=== PATIENT | female | born 1985 | race African-American/Black ===

== ENCOUNTER 2019-10-26 23:22 | Emergency (ER) | payer OTHER ==
[2019-10-26 23:28] VITALS: RESP 20
[2019-10-26] MEDS ORDERED: FLUORESCEIN STRIPS 1 MG STRIP LEFT EYE ONE (23:33)
[2019-10-26] MEDS ORDERED: PROPARACAINE 0.5% OPHTH DROPS 15 ML BTL LEFT EYE STA (23:33)
[2019-10-26 23:43] LABS: Basophils % (A) 0 %; Eosinophils # (A) 0.1 k/uL (0-0.7); Eosinophils % (A) 1 %; HCT 43.9 % (34.0-46.0); HGB 13.8 gm/dL (11.4-16.0); Hypochromasia Slight; Lymphocytes # (A) 2.3 k/uL (1.0-4.8); Lymphocytes % (A) 20 %; MCH 27.1 pg (25.0-35.0); MCHC 31.4 g/dL (31.0-37.0); MCV 86.4 fL (80.0-100.0); Monocytes # (A) 0.3 k/uL (0-1.0); Monocytes % (A) 3 %; Neutrophils # (A) 8.5 k/uL (1.3-7.7); Neutrophils % (A) 74 %; Platelet Count 326 k/uL (150-450); RBC 5.08 m/uL (3.80-5.40); RDW 15.6 % (11.5-15.5); WBC 11.5 k/uL (3.8-10.6)
[2019-10-26 23:52] LABS: INR 0.9 (<1.2); Prothrombin Time 9.8 sec (9.0-12.0)
[2019-10-26 23:53] LABS: Partial Thromboplastin Time 24.2 sec (22.0-30.0)
[2019-10-26 23:54] LABS: ALT 21 U/L (4-34); AST 32 U/L (14-36); African American GFR (CKD) >90 (>60 ml/min/1.73 sqM); Albumin 4.6 g/dL (3.5-5.0); Alkaline Phosphatase 106 U/L (38-126); Anion Gap 12 mmol/L; Blood Urea Nitrogen 6 mg/dL (7-17); Calcium 8.9 mg/dL (8.4-10.2); Carbon Dioxide 19 mmol/L (22-30); Chloride 110 mmol/L (98-107); Glucose 105 mg/dL (74-99); Non-African American GFR(CKD) >90 (>60 ml/min/1.73 sqM); Potassium 3.8 mmol/L (3.5-5.1); Sodium 141 mmol/L (137-145); Total Bilirubin 0.4 mg/dL (0.2-1.3); Total Protein 8.2 g/dL (6.3-8.2)
[2019-10-26 23:57] LABS: Alcohol 267 mg/dL
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
[2019-10-27] MEDS ORDERED: TOPICAL SKIN ADHESIVE 1 EACH AMP TOPICAL ONE (00:23)
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
[2019-10-27] MEDS ORDERED: DIPH,PERTUS(ACELL)TETVAC-LF 0.5 ML VIAL IM ONE (00:31)
[2019-10-27 01:03] VITALS: BP 121/79; PULSE 90; TEMP 98.1
[2019-10-27] MEDS ORDERED: ACETAMINOPHEN TAB 500 MG TAB PO STA (01:03)
== END 2019-10-27 01:18 | disposition home or self-care (01) ==
LOC: EC 23:22
DX: S01.81XA Laceration without foreign body of other part of head, initial encounter (principal); F10.129 Alcohol abuse with intoxication, unspecified; Y90.9 Presence of alcohol in blood, level not specified; Z88.1 Allergy status to other antibiotic agents; Y04.2XXA Assault by strike against or bumped into by another person, initial encounter; Y92.89 Other specified places as the place of occurrence of the external cause
CPT/HCPCS: 12011; 36415; 70450; 70486; 72125; 80053; 80320; 85025; 85610; 85730; 86850; 86900; 86901; 93005; 99284

== ENCOUNTER 2019-12-14 11:00 | Emergency (ER) | payer OTHER ==
[2019-12-14 11:07] VITALS: BP 126/85; PULSE 90; RESP 18; TEMP 97.5
--- NOTE | 2019-12-14 11:26 | ED ---
General Adult HPI - General Chief complaint: Skin/Abscess/Foreign Body Stated complaint: boil on leg Time Seen by Provider: 12/14/19 11:11 Source: patient, RN notes reviewed, old records reviewed Mode of arrival: ambulatory Limitations: no limitations - History of Present Illness Initial comments: 34-year-old female presents emergency department today for evaluation for abscess over the right inner thigh. She has a history of hydradenitis Miguel. Patient states she's had previous abscesses such as this. She states is been progressively growing for the past few days. She reports that it opened and drained. Patient has had no fevers or chills. Patient has not been on recent antibiotics. She states that she believed work early for this. - Related Data Previous Rx's Medication Instructions Recorded Ibuprofen [Motrin] 600 mg PO Q8HR PRN #20 tab 12/14/19 Sulfamethox-Tmp 800-160Mg [Bactrim 2 tab PO Q12HR #40 tab 12/14/19 DS 800-160 mg] Allergies Allergy/AdvReac Type Severity Reaction Status Date / Time doxycycline Allergy Nausea & Verified 12/14/19 11:07 Vomiting Review of Systems ROS Statement: Those systems with pertinent positive or pertinent negative responses have been documented in the HPI. ROS Other: All systems not noted in ROS Statement are negative. Past Medical History Past Medical History: Unable to Obtain Additional Past Medical History / Comment(s): HS (gland issues) History of Any Multi-Drug Resistant Organisms: Unobtainable Past Surgical History: Unable to Obtain Past Psychological History: No Psychological Hx Reported Smoking Status: Current every day smoker Past Alcohol Use History: None Reported Past Drug Use History: None Reported General Exam - General Exam Comments Initial Comments: 34-year-old female. Alert and oriented 3. No significant distress. Limitations: no limitations General appearance: alert, in no apparent distress Head exam: Present: atraumatic, normocephalic, normal inspection Eye exam: Present: normal appearance, PERRL, EOMI. Absent: scleral icterus, conjunctival injection, periorbital swelling ENT exam: Present: normal exam Neck exam: Present: normal inspection. Absent: tenderness, meningismus, lymphadenopathy Respiratory exam: Present: normal lung sounds bilaterally. Absent: respiratory distress, wheezes, rales, rhonchi, stridor Cardiovascular Exam: Present: regular rate, normal rhythm, normal heart sounds. Absent: systolic murmur, diastolic murmur, rubs, gallop, clicks GI/Abdominal exam: Present: soft, normal bowel sounds. Absent: distended, tenderness, guarding, rebound, rigid Extremities exam: Present: normal inspection (Patient has a boil on the right inner thigh. Area measures 2 cm 1 cm. Some surrounding premises skin. No head to drain at this time.), full ROM, normal capillary refill, other (right inner thigh boil that is open. Some firmness to touch. Area measures to m x 1 cm.). Absent: tenderness, pedal edema, joint swelling, calf tenderness Neurological exam: Present: alert, oriented X3, CN II-XII intact Psychiatric exam: Present: normal affect, normal mood Skin exam: Present: warm, dry, intact, normal color. Absent: rash Course Vital Signs 12/14/19 11:02 Temperature 97.5 F L Pulse Rate 90 Respiratory 18 Rate Blood Pressure 126/85 O2 Sat by Pulse 100 Oximetry Medical Decision Making - Medical Decision Making 34-year-old female presents with history of hidradenitis appear to an abscess in her right inner thigh. Patient has a 2 cm x 1 cm firm area. I offered to drain is a Patient states she would prefer antibiotics and avoid incision and drainage at this time. I discussed doing warm compresses. Discussed return parameters. All questions answered. Disposition Clinical Impression: H/O hidradenitis suppurativa, Abscess of right thigh Disposition: HOME SELF-CARE Condition: Good Instructions (If sedation given, give patient instructions): Abscess (ED) Additional Instructions: Patient has apply warm compresses over the area. Take the antibiotics as prescribed. We had forearms in and drainage would be required please return to the ER or PCP for reevaluation. Prescriptions: Sulfamethox-Tmp 800-160Mg [Bactrim DS 800-160 mg] 2 tab PO Q12HR #40 tab Ibuprofen [Motrin] 600 mg PO Q8HR PRN #20 tab PRN Reason: Pain Is patient prescribed a controlled substance at d/c from ED?: No Referrals: None,Stated [Primary Care Provider] - 1-2 days Time of Disposition: 11:25
== END 2019-12-14 11:38 | disposition home or self-care (01) ==
LOC: EC 11:00
DX: L02.415 Cutaneous abscess of right lower limb (principal); F17.200 Nicotine dependence, unspecified, uncomplicated; Z88.1 Allergy status to other antibiotic agents; Z87.2 Personal history of diseases of the skin and subcutaneous tissue
CPT/HCPCS: 99283

== ENCOUNTER 2020-01-12 22:16 | Emergency (ER) | payer OTHER ==
[2020-01-12 22:21] VITALS: BP 119/83; PULSE 84; RESP 18; TEMP 98.2
--- NOTE | 2020-01-12 22:25 | ED ---
Skin/Abscess/FB HPI - General Chief complaint: Skin/Abscess/Foreign Body Stated complaint: Boil Time Seen by Provider: 01/12/20 22:24 Source: patient Mode of arrival: wheelchair Limitations: no limitations - History of Present Illness Initial comments: Annette 34-year-old female with a history of hidradenitis, patient presents the ER today for evaluation of an abscess of the abdominal pannus. Patient reports she finished antibiotics for infection approximately a week ago but she's noticed progressively worsening pain and believe she has an abscess in the left lower abdominal pannus. She denies any associated fevers chills nausea or vomiting. - Related Data Previous Rx's Medication Instructions Recorded Ibuprofen [Motrin] 600 mg PO Q8HR PRN #20 tab 12/14/19 Sulfamethox-Tmp 800-160Mg [Bactrim 2 tab PO Q12HR #40 tab 12/14/19 DS 800-160 mg] Sulfamethox-Tmp 800-160Mg [Bactrim 1 tab PO Q12HR #14 tab 01/12/20 DS 800-160 mg] Allergies Allergy/AdvReac Type Severity Reaction Status Date / Time doxycycline Allergy Nausea & Verified 01/12/20 22:21 Vomiting Review of Systems ROS Statement: Those systems with pertinent positive or pertinent negative responses have been documented in the HPI. ROS Other: All systems not noted in ROS Statement are negative. Past Medical History Past Medical History: Unable to Obtain Additional Past Medical History / Comment(s): HS (gland issues), History of Any Multi-Drug Resistant Organisms: Unobtainable Past Surgical History: Unable to Obtain Additional Past Surgical History / Comment(s): sweat glands removed, Past Psychological History: No Psychological Hx Reported Smoking Status: Current every day smoker Past Alcohol Use History: None Reported Past Drug Use History: Marijuana General Exam - General Exam Comments Initial Comments: Physical Exam GENERAL: Patient is well-developed and well-nourished. Patient is nontoxic and well-hydrated and is in no distress. HENT: Normocephalic, Atraumatic. EYES: PERRL, EOMI PULMONARY: Unlabored respirations. CARDIOVASCULAR: RRR Warm and well perfused extremities ABDOMEN: Non-distended SKIN: Patient with scars on lower abdomen consistent with hydradenitis Palpable abscess on left lower panus, approx 2x2cm, minimal surrounding erythema : Deferred NEUROLOGIC: Alert and oriented Normal speech Normal gait MUSCULOSKELETAL: Moving all extremities with no apparent injury PSYCHIATRIC: No SI/HI Limitations: no limitations Course Vital Signs 01/12/20 22:18 Temperature 98.2 F Pulse Rate 84 Respiratory 18 Rate Blood Pressure 119/83 O2 Sat by Pulse 100 Oximetry Medical Decision Making - Medical Decision Making Patient was seen and evaluated, history obtained from patient Patient with abscess which was drained by Ta OBNILLA First dose of Bactrim given in ER, prescription was provided patient was advised that [facility] in [place] has a hidradenitis clinic that she can follow with. Patient was advised to contact them for further follow-up. Disposition Clinical Impression: H/O hidradenitis suppurativa, Abscess of abdominal wall Disposition: HOME SELF-CARE Condition: Stable Instructions (If sedation given, give patient instructions): Abscess Incision and Drainage (DC) Additional Instructions: Check the [facility] website for follow up with Dermatology as they have a Hydradenitis Clinic Prescriptions: Sulfamethox-Tmp 800-160Mg [Bactrim DS 800-160 mg] 1 tab PO Q12HR #14 tab Is patient prescribed a controlled substance at d/c from ED?: No Referrals: None,Stated [Primary Care Provider] - 1-2 days
[2020-01-12] MEDS ORDERED: LIDOCAINE 1%-EPI 1:100,000 20 ML VIAL SQ STA (22:35)
[2020-01-12] MEDS ORDERED: MORPHINE SULFATE 4 MG/ML SYRINGE IM STA (22:36)
[2020-01-12] MEDS ORDERED: SULFAMETH-TMP DS STARTER PACK 2 TAB BTL PO STA (22:36)
--- NOTE | 2020-01-14 07:34 | CDI ---
Dear Gabi Jones DO Please do addendum for procedure note related to lidocaine/epinephrine , required Thank you, Kalina Naranjo, Transportation Services Representative If you have any questions, please contact [employer] at [phone] [facility]
== END 2020-01-12 23:11 | disposition home or self-care (01) ==
LOC: EC 22:16
DX: L02.211 Cutaneous abscess of abdominal wall (principal); F17.200 Nicotine dependence, unspecified, uncomplicated; Z88.1 Allergy status to other antibiotic agents
CPT/HCPCS: 99282; 96372; J2270

== ENCOUNTER 2020-03-08 16:56 | Emergency (ER) | payer OTHER ==
[2020-03-08 17:02] VITALS: BP 126/84; PULSE 99; RESP 16; TEMP 98.5
[2020-03-08] MEDS ORDERED: LIDOCAINE 1% INJ 10MG/ML (20 ML MDV) SQ ONE (17:20)
[2020-03-08] MEDS ORDERED: HYDROcodone/APAP 10-325MG 1 EACH TAB PO ONE (17:20)
[2020-03-08] MEDS ORDERED: CLINDAMYCIN 150 MG CAP PO STA (17:25)
--- NOTE | 2020-03-08 18:40 | ED ---
General Adult HPI - General Chief complaint: Skin/Abscess/Foreign Body Stated complaint: cyst on back Time Seen by Provider: 03/08/20 17:04 Source: patient Mode of arrival: ambulatory Limitations: no limitations - History of Present Illness Initial comments: Patient is a 34 year old female past medical history of hidradenitis supprativa who presents to the emergency room with reported abscess to her back. Patient states that she was recently seen by her primary care physician and was on a course of clindamycin and Bactrim. She just finished antibiotic 2 days ago. States that the 2 large abscesses on her back have gotten progressively larger since monday. This is a chronic issue for the patient. She has had multiple surgeries previously for similar issue. Patient denies fevers or chills. No nausea or vomiting. She has had some pustular drainage from the site. No history of MRSA. No other alleviating, precipitating or modifying factors - Related Data Previous Rx's Medication Instructions Recorded Ibuprofen [Motrin] 600 mg PO Q8HR PRN #20 tab 12/14/19 Sulfamethox-Tmp 800-160Mg [Bactrim 2 tab PO Q12HR #40 tab 12/14/19 DS 800-160 mg] Sulfamethox-Tmp 800-160Mg [Bactrim 1 tab PO Q12HR #14 tab 01/12/20 DS 800-160 mg] Chlorhexidine Gluconate [Hibiclens] 1 applic TOPICAL DAILY #236 ml 03/08/20 Clindamycin HCl 300 mg PO Q8HR #21 cap 03/08/20 HYDROcodone/APAP 7.5-325MG [Richmond 1 tab PO Q6HR PRN 3 Days #12 tab 03/08/20 7.5-325] Sulfamethox-Tmp 800-160Mg [Bactrim 1 each PO Q12HR #20 tab 03/08/20 Ds] Allergies Allergy/AdvReac Type Severity Reaction Status Date / Time doxycycline Allergy Nausea & Verified 03/08/20 17:02 Vomiting Review of Systems ROS Statement: Those systems with pertinent positive or pertinent negative responses have been documented in the HPI. ROS Other: All systems not noted in ROS Statement are negative. Past Medical History Past Medical History: Unable to Obtain Additional Past Medical History / Comment(s): HS (gland issues), History of Any Multi-Drug Resistant Organisms: Unobtainable Past Surgical History: Unable to Obtain Additional Past Surgical History / Comment(s): sweat glands removed, Past Psychological History: No Psychological Hx Reported Smoking Status: Current every day smoker Past Alcohol Use History: Occasional Past Drug Use History: Marijuana General Exam Limitations: no limitations Course Vital Signs 03/08/20 16:57 Temperature 98.5 F Pulse Rate 99 Respiratory 16 Rate Blood Pressure 126/84 O2 Sat by Pulse 99 Oximetry Medical Decision Making - Medical Decision Making Upon arrival patient is placed in room 27. A thorough history and physical exam was performed. Patient was given a Richmond 10 for pain control as well as a dose of clindamycin. Incision and drainage was performed of the 2 large back abscesses. Patient tolerated the procedure well. The larger abscess to the right thoracic region was packed with iodoform gauze which is to be removed in 24-48 hours. Patient will be given a prescription for Bactrim, clindamycin and Richmond. Patient also provided a prescription for Hibiclens baths for which she is to use a few times per week. She is given follow-up information for multiple surgeons as she states she has seen several in [place] [facility]. Patient is instructed to follow-up with her primary care doctor in 2-4 days. Return to the emergency room for any new or worsening symptoms. Patient was discharged home in stable condition Disposition Clinical Impression: Hidradenitis suppurativa, Abscess of back Disposition: HOME SELF-CARE Condition: Stable Instructions (If sedation given, give patient instructions): Abscess Incision and Drainage (ED), Abscess (ED) Additional Instructions: Please follow up with the surgeon. Take the antibiotics as directed. Remove the packing in 24-48 hours. Return to the ED for any new or worsening symptoms. Prescriptions: Sulfamethox-Tmp 800-160Mg [Bactrim Ds] 1 each PO Q12HR #20 tab Clindamycin HCl 300 mg PO Q8HR #21 cap Chlorhexidine Gluconate [Hibiclens] 1 applic TOPICAL DAILY #236 ml HYDROcodone/APAP 7.5-325MG [Richmond 7.5-325] 1 tab PO Q6HR PRN 3 Days #12 tab PRN Reason: Pain Is patient prescribed a controlled substance at d/c from ED?: Yes When asked, does pt state using other controlled substances?: No If prescribed controlled substance>3 days was MAPS reviewed?: Prescribed <3 Days If opioid is for acute pain is fill amount 7 days or less?: Yes If Rx opioid, was Start Talking consent form obtained?: Yes Referrals: Fish Grimes DO [Primary Care Provider] - 1-2 days Jesse Hamilton DO [REFERRING] - 1-2 days Twin Blakely DO [REFERRING] - 1-2 days Time of Disposition: 18:38
== END 2020-03-08 18:50 | disposition home or self-care (01) ==
LOC: EC 16:56
DX: L73.2 Hidradenitis suppurativa (principal); L02.212 Cutaneous abscess of back [any part, except buttock and flank]; F17.200 Nicotine dependence, unspecified, uncomplicated; Z88.1 Allergy status to other antibiotic agents
CPT/HCPCS: 87070; 87205; 99283; 10060; J2001

== ENCOUNTER 2020-03-18 09:32 | Emergency (ER) | payer OTHER ==
[2020-03-18 09:39] VITALS: BP 143/83; PULSE 75; RESP 18; TEMP 98.6
[2020-03-18] MEDS ORDERED: LIDOCAINE 1% INJ 10MG/ML (20 ML MDV) SQ ONE (09:46)
[2020-03-18] MEDS ORDERED: HYDROcodone/APAP 5-325MG 1 EACH TAB PO STA (09:46)
--- NOTE | 2020-03-18 10:06 | ED ---
General Adult HPI - General Chief complaint: Skin/Abscess/Foreign Body Stated complaint: Cyst on neck Time Seen by Provider: 03/18/20 09:43 Source: patient, RN notes reviewed Mode of arrival: ambulatory Limitations: no limitations - History of Present Illness Initial comments: 34-year-old female presents to the emergency room for a chief complaint of ab scess. Patient has a history of hidradenitis of vertebral. Patient states she has an abscess on her neck as well as her abdomen. Patient is currently on antibiotics that she did have an abscess on her back previously about a week and a half ago that was drained here in the emergency room. He continually gets these. States that she takes a daily antibiotic as well of however does not seem to be prevent them. Patient denies any fevers or chills. Denies any neck stiffness.Patient has no other complaints at this time including shortness of breath, chest pain, abdominal pain, nausea or vomiting, headache, or visual changes. - Related Data Previous Rx's Medication Instructions Recorded Ibuprofen [Motrin] 600 mg PO Q8HR PRN #20 tab 12/14/19 Sulfamethox-Tmp 800-160Mg [Bactrim 2 tab PO Q12HR #40 tab 12/14/19 DS 800-160 mg] Sulfamethox-Tmp 800-160Mg [Bactrim 1 tab PO Q12HR #14 tab 01/12/20 DS 800-160 mg] Chlorhexidine Gluconate [Hibiclens] 1 applic TOPICAL DAILY #236 ml 03/08/20 Clindamycin HCl 300 mg PO Q8HR #21 cap 03/08/20 HYDROcodone/APAP 7.5-325MG [[place] 1 tab PO Q6HR PRN 3 Days #12 tab 03/08/20 7.5-325] Sulfamethox-Tmp 800-160Mg [Bactrim 1 each PO Q12HR #20 tab 03/08/20 Ds] Clindamycin [Cleocin] 300 mg PO Q8H 5 Days #15 cap 03/18/20 Allergies Allergy/AdvReac Type Severity Reaction Status Date / Time doxycycline Allergy Nausea & Verified 03/18/20 09:39 Vomiting Review of Systems ROS Statement: Those systems with pertinent positive or pertinent negative responses have been documented in the HPI. ROS Other: All systems not noted in ROS Statement are negative. Past Medical History Past Medical History: Unable to Obtain Additional Past Medical History / Comment(s): HS (gland issues), History of Any Multi-Drug Resistant Organisms: Unobtainable Past Surgical History: Unable to Obtain Additional Past Surgical History / Comment(s): sweat glands removed, Past Psychological History: No Psychological Hx Reported Smoking Status: Current every day smoker Past Alcohol Use History: Occasional Past Drug Use History: Marijuana General Exam Limitations: no limitations General appearance: alert Head exam: Present: atraumatic Eye exam: Present: normal appearance ENT exam: Present: normal exam, mucous membranes moist Neck exam: Present: full ROM, other (Patient has a 2 cm x 2 cm nodule on the posterior neck noted right of midline consistent with abscess) Respiratory exam: Present: normal lung sounds bilaterally. Absent: respiratory distress, wheezes, rales, rhonchi, stridor Cardiovascular Exam: Present: regular rate, normal rhythm, normal heart sounds. Absent: systolic murmur, diastolic murmur, rubs, gallop, clicks GI/Abdominal exam: Present: soft, normal bowel sounds, other (Patient has a small 2 cm x 2 cm abscess noted to the left lower abdomen). Absent: distended, guarding, rebound, rigid Course Vital Signs 03/18/20 09:37 Temperature 98.6 F Pulse Rate 75 Respiratory 18 Rate Blood Pressure 143/83 O2 Sat by Pulse 100 Oximetry Procedures - [place] Protocol (Time Out) Procedure Performed:: i and d Performing Provider: Umberto Witt Nurse: Kandis Moss Patient Identification (2 identifiers required): Chart, Verbal, Arm Band, Name, Birthdate Patient/Legal Vp Marketing has Confirmed: Identity, Site, Procedure, Consent Site: left lower abdomen and posterior neck Site Marked: Yes Site Verified With Patient/Guardian: Yes - Incision & Drainage Consent Obtained: verbal consent Indication: Abscess Site: neck, abdomen Size (cm): 2 Anesthetic Used: lidocaine 1% Amount (mLs): 1 I&D Cleaning Method: Chloroprep Sterile Field Used?: Yes Scalpel Used: #11 I&D Drainage Obtained: Pus, Blood Patient Tolerated Procedure: well, no complications Medical Decision Making - Medical Decision Making Vitals are stable. Patient has a 2 cm abscess noted to the posterior neck right of midline near the skull base. I did clean this area and attempt to incise and drain however no purulent material expelled. no erythema or signs of cellulitis. she will follow up with her doctor for this. i also drained a 2 cm abscess on the abdomen which did reveal purulent material. Patient was arty been on Bactrim for about 10 days. She finished her 7 day course of clindamycin. Patient will be put on clindamycin for another 5 days. It is recommended she do warm compresses. She will return here for any worsening symptoms. Otherwise follow-up with her doctor. Disposition Clinical Impression: Hidradenitis suppurativa, Abscess Disposition: HOME SELF-CARE Condition: Good Instructions (If sedation given, give patient instructions): Abscess Incision and Drainage (ED), Warm Compress or Soak (ED) Additional Instructions: Please take antibiotic as directed. Apply warm compresses to the areas to pr omote draining. Follow up with her doctor. If symptoms are worsening return to the emergency room. Prescriptions: Clindamycin [Cleocin] 300 mg PO Q8H 5 Days #15 cap Is patient prescribed a controlled substance at d/c from ED?: No Referrals: Fish Grimes DO [Primary Care Provider] - 1-2 days Time of Disposition: 10:05
== END 2020-03-18 10:12 | disposition home or self-care (01) ==
LOC: EC 09:32
DX: L02.11 Cutaneous abscess of neck (principal); L02.211 Cutaneous abscess of abdominal wall; L73.2 Hidradenitis suppurativa; F17.200 Nicotine dependence, unspecified, uncomplicated; Z88.1 Allergy status to other antibiotic agents
CPT/HCPCS: 99282; 10060; J2001

== ENCOUNTER 2020-04-23 08:09 | Emergency (ER) | payer OTHER ==
[2020-04-23 08:22] VITALS: RESP 18
[2020-04-23] MEDS ORDERED: LIDOCAINE 1% INJ 10MG/ML (20 ML MDV) SQ ONE (09:00)
[2020-04-23] MEDS ORDERED: HYDROcodone/APAP 7.5-325MG 1 EACH TAB PO ONE (09:00)
--- NOTE | 2020-04-23 10:08 | ED ---
Skin/Abscess/FB HPI - General Chief complaint: Skin/Abscess/Foreign Body Stated complaint: Abscess Female Time Seen by Provider: 04/23/20 08:20 Source: patient Mode of arrival: wheelchair Limitations: no limitations - History of Present Illness Initial comments: Patient is a 34-year-old female with past medical history of hidradenitis supprativa who presents to the emergency department with reported abscess on her left labia. She noticed the area one week ago which has significantly progressed. Started off as a small pimple which then progressed. Admits to some drainage from the site. She is not currently on any antibiotics. She has been appointment with a surgeon on the for her symptoms. She denies any fevers or chills. No nausea or vomiting. No vaginal discharge. No history of MRSA. No other alleviating, precipitating or modifying factors - Related Data Previous Rx's Medication Instructions Recorded Ibuprofen [Motrin] 600 mg PO Q8HR PRN #20 tab 12/14/19 Sulfamethox-Tmp 800-160Mg [Bactrim 2 tab PO Q12HR #40 tab 12/14/19 DS 800-160 mg] Sulfamethox-Tmp 800-160Mg [Bactrim 1 tab PO Q12HR #14 tab 01/12/20 DS 800-160 mg] Chlorhexidine Gluconate [Hibiclens] 1 applic TOPICAL DAILY #236 ml 03/08/20 Clindamycin HCl 300 mg PO Q8HR #21 cap 03/08/20 HYDROcodone/APAP 7.5-325MG [[place] 1 tab PO Q6HR PRN 3 Days #12 tab 03/08/20 7.5-325] Sulfamethox-Tmp 800-160Mg [Bactrim 1 each PO Q12HR #20 tab 03/08/20 Ds] Clindamycin [Cleocin] 300 mg PO Q8H 5 Days #15 cap 03/18/20 Clindamycin HCl 300 mg PO Q8HR #21 cap 04/23/20 HYDROcodone/APAP 7.5-325MG [[place] 1 tab PO Q6HR PRN 3 Days #12 tab 04/23/20 7.5-325] Sulfamethox-Tmp 800-160Mg [Bactrim 2 each PO Q12HR #20 tab 04/23/20 Ds] Allergies Allergy/AdvReac Type Severity Reaction Status Date / Time doxycycline Allergy Nausea & Verified 04/23/20 08:22 Vomiting Review of Systems ROS Statement: Those systems with pertinent positive or pertinent negative responses have been documented in the HPI. ROS Other: All systems not noted in ROS Statement are negative. Past Medical History Past Medical History: No Reported History Additional Past Medical History / Comment(s): HS (gland issues), History of Any Multi-Drug Resistant Organisms: None Reported Past Surgical History: Unable to Obtain Additional Past Surgical History / Comment(s): sweat glands removed, Past Psychological History: Anxiety, Depression Smoking Status: Current every day smoker Past Alcohol Use History: Occasional Past Drug Use History: Marijuana General Exam Limitations: no limitations Course Vital Signs 04/23/20 04/23/20 08:19 10:25 Temperature 98.7 F 98.4 F Pulse Rate 71 72 Respiratory 18 18 Rate Blood Pressure 131/77 128/77 O2 Sat by Pulse 96 98 Oximetry Medical Decision Making - Medical Decision Making Upon arrival patient is placed into room 20. A thorough history and physical exam was performed. Patient was given a Nada for pain control. Incision and drainage was performed with release of 5 cc of purulent drainage. He she will be placed on Bactrim, Clinda and Nada for at home. She is to follow-up with her surgeon for further treatment options. Return to the emergency room for any new or worsening symptoms. Patient was discharged home in stable condition Disposition Clinical Impression: Hidradenitis suppurativa, Left genital labial abscess Disposition: HOME SELF-CARE Condition: Stable Instructions (If sedation given, give patient instructions): Abscess Incision and Drainage (ED), Hidradenitis Suppurativa (ED) Additional Instructions: Please follow up with your general surgeon for further treatment options. Return to the emergency room for any new or worsening symptoms. Prescriptions: Sulfamethox-Tmp 800-160Mg [Bactrim Ds] 2 each PO Q12HR #20 tab Clindamycin HCl 300 mg PO Q8HR #21 cap HYDROcodone/APAP 7.5-325MG [[place] 7.5-325] 1 tab PO Q6HR PRN 3 Days #12 tab PRN Reason: Pain Is patient prescribed a controlled substance at d/c from ED?: Yes When asked, does pt state using other controlled substances?: No If prescribed controlled substance>3 days was MAPS reviewed?: Prescribed <3 Days If opioid is for acute pain is fill amount 7 days or less?: Yes If Rx opioid, was Start Talking consent form obtained?: Yes Referrals: Fish Grimes DO [Primary Care Provider] - 1-2 days Time of Disposition: 10:07
[2020-04-23 10:27] VITALS: BP 128/77; PULSE 72; TEMP 98.4
== END 2020-04-23 10:29 | disposition home or self-care (01) ==
LOC: EC 08:09
DX: L73.2 Hidradenitis suppurativa (principal); N76.4 Abscess of vulva; F17.200 Nicotine dependence, unspecified, uncomplicated; Z88.1 Allergy status to other antibiotic agents
CPT/HCPCS: 56405; 99283

== ENCOUNTER 2020-06-18 12:14 | Emergency (ER) | payer OTHER ==
[2020-06-18 12:18] VITALS: BP 127/74; PULSE 88; RESP 16; TEMP 97.8
[2020-06-18] MEDS ORDERED: LIDOCAINE 1% INJ 10MG/ML (20 ML MDV) SQ ONE (12:30)
[2020-06-18] MEDS ORDERED: MORPHINE SULFATE 4 MG/ML SYRINGE IM STA (12:37)
--- NOTE | 2020-06-18 12:54 | ED ---
Skin/Abscess/FB HPI - General Chief complaint: Skin/Abscess/Foreign Body Stated complaint: Female Time Seen by Provider: 06/18/20 12:15 Source: patient Mode of arrival: ambulatory Limitations: no limitations - History of Present Illness Initial comments: Patient is a 34 year old female past medical history of hidradenitis suprapubic who presents emergency department with an abscess under her left abdominal fold patient has been seen multiple times the emergency department for abscesses requiring drainage. Patient states she is been attempting to see a surgeon however she has had difficulty finding a surgeon takes her medical insurance. Patient reports that her abscess started on her left abdomen several days ago. States it's been increasing in size and has been very painful. Denies any drainage from the site. No fevers or chills. Denies any nausea or vomiting. No other alleviating, precipitating or modifying factors - Related Data Previous Rx's Medication Instructions Recorded Ibuprofen [Motrin] 600 mg PO Q8HR PRN #20 tab 12/14/19 Sulfamethox-Tmp 800-160Mg [Bactrim 2 tab PO Q12HR #40 tab 12/14/19 DS 800-160 mg] Sulfamethox-Tmp 800-160Mg [Bactrim 1 tab PO Q12HR #14 tab 01/12/20 DS 800-160 mg] Chlorhexidine Gluconate [Hibiclens] 1 applic TOPICAL DAILY #236 ml 03/08/20 Clindamycin HCl 300 mg PO Q8HR #21 cap 03/08/20 HYDROcodone/APAP 7.5-325MG [[place] 1 tab PO Q6HR PRN 3 Days #12 tab 03/08/20 7.5-325] Sulfamethox-Tmp 800-160Mg [Bactrim 1 each PO Q12HR #20 tab 03/08/20 Ds] Clindamycin [Cleocin] 300 mg PO Q8H 5 Days #15 cap 03/18/20 Clindamycin HCl 300 mg PO Q8HR #21 cap 04/23/20 HYDROcodone/APAP 7.5-325MG [[place] 1 tab PO Q6HR PRN 3 Days #12 tab 04/23/20 7.5-325] Sulfamethox-Tmp 800-160Mg [Bactrim 2 each PO Q12HR #20 tab 04/23/20 Ds] Clindamycin HCl 300 mg PO Q8HR #15 cap 06/18/20 HYDROcodone/APAP 7.5-325MG [[place] 1 tab PO Q6HR PRN 3 Days #12 tab 06/18/20 7.5-325] Allergies Allergy/AdvReac Type Severity Reaction Status Date / Time doxycycline Allergy Nausea & Verified 06/18/20 12:15 Vomiting Review of Systems ROS Statement: Those systems with pertinent positive or pertinent negative responses have been documented in the HPI. ROS Other: All systems not noted in ROS Statement are negative. Past Medical History Past Medical History: No Reported History Additional Past Medical History / Comment(s): HS (gland issues), History of Any Multi-Drug Resistant Organisms: None Reported Past Surgical History: Unable to Obtain Additional Past Surgical History / Comment(s): sweat glands removed, Past Psychological History: Anxiety, Depression Smoking Status: Current every day smoker Past Alcohol Use History: Occasional Past Drug Use History: Marijuana General Exam Limitations: no limitations General appearance: alert, in no apparent distress Head exam: Present: atraumatic, normocephalic, normal inspection Eye exam: Present: normal appearance, PERRL, EOMI. Absent: scleral icterus, conjunctival injection, periorbital swelling ENT exam: Present: normal exam, mucous membranes moist Neck exam: Present: normal inspection. Absent: tenderness, meningismus, lymphadenopathy Respiratory exam: Present: normal lung sounds bilaterally. Absent: respiratory distress, wheezes, rales, rhonchi, stridor Cardiovascular Exam: Present: regular rate, normal rhythm, normal heart sounds. Absent: systolic murmur, diastolic murmur, rubs, gallop, clicks GI/Abdominal exam: Present: soft, normal bowel sounds. Absent: distended, tenderness, guarding, rebound, rigid Extremities exam: Present: normal inspection, full ROM, normal capillary refill. Absent: tenderness, pedal edema, joint swelling, calf tenderness Back exam: Present: normal inspection Neurological exam: Present: alert, oriented X3, CN II-XII intact Psychiatric exam: Present: normal affect, normal mood Skin exam: Present: warm, dry, other (abscess with surrounding cellulitis left anterior abdominal wall fold. Abscess measures 4 x 3 cm. Surrounding cellulitis measures 6 x 4 cm ) Course Vital Signs 06/18/20 12:15 Temperature 97.8 F Pulse Rate 88 Respiratory 16 Rate Blood Pressure 127/74 O2 Sat by Pulse 97 Oximetry Procedures - Incision & Drainage Consent Obtained: verbal consent Site: abdomen Anesthetic Used: lidocaine 1% Amount (mLs): 6 I&D Cleaning Method: Alcohol Wipe Scalpel Used: #11 I&D Drainage Obtained: Pus Culture Obtained?: No Patient Tolerated Procedure: well, no complications Medical Decision Making - Medical Decision Making Upon arrival patient is placed into room 21. A thorough history and physical exam was performed. Abscesses ultrasounded and does demonstrate a large fluid pocket. Patient was given 4 mg of IM morphine for pain control. Area was anesthetized an incision and drainage was performed. Approximately 6 mL of purulent white drainage was expressed. Patient will be placed on clindamycin at this time for surrounding cellulitis. She is given a prescription for [place] for pain control. Recommended that she follow up with her primary care physician who may recommend a surgeon takes her insurance. Return to the emergency room for any new or worsening symptoms. patient agree to this and was discharged in stable condition Disposition Clinical Impression: Hidradenitis suppurativa, Abscess, Cellulitis Disposition: HOME SELF-CARE Condition: Stable Instructions (If sedation given, give patient instructions): Abscess (ED), Abscess Incision and Drainage (DC) Additional Instructions: Place warm compresses to the site. Express the pus from the abscess to keep open. Take the antibiotics as directed. Return to the ED for any new or worsening symptoms. Prescriptions: Clindamycin HCl 300 mg PO Q8HR #15 cap HYDROcodone/APAP 7.5-325MG [[place] 7.5-325] 1 tab PO Q6HR PRN 3 Days #12 tab PRN Reason: Pain Is patient prescribed a controlled substance at d/c from ED?: Yes When asked, does pt state using other controlled substances?: No If prescribed controlled substance>3 days was MAPS reviewed?: Prescribed <3 Days If opioid is for acute pain is fill amount 7 days or less?: Yes If Rx opioid, was Start Talking consent form obtained?: Yes Referrals: Fish Grimes DO [Primary Care Provider] - 1-2 days Time of Disposition: 13:26
[2020-06-18] MEDS ORDERED: CLINDAMYCIN 150 MG CAP PO STA (13:25)
== END 2020-06-18 13:43 | disposition home or self-care (01) ==
LOC: EC 12:14
DX: L02.211 Cutaneous abscess of abdominal wall (principal); L03.311 Cellulitis of abdominal wall; L73.2 Hidradenitis suppurativa; F17.200 Nicotine dependence, unspecified, uncomplicated; Z88.1 Allergy status to other antibiotic agents
CPT/HCPCS: 99282; 96372; 10060; J2270; J2001

== ENCOUNTER 2020-07-31 19:47 | Emergency (ER) | payer OTHER ==
[2020-07-31] MEDS ORDERED: SODIUM CHLORIDE 0.9% 1,000 ML IV STA ×2 (20:09)
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
[2020-07-31 20:40] LABS: Basophils % (A) 0 %; Eosinophils # (A) 0.1 k/uL (0-0.7); Eosinophils % (A) 1 %; Lymphocytes % (A) 23 %; MCH 29.2 pg (25.0-35.0); MCHC 33.5 g/dL (31.0-37.0); MCV 87.4 fL (80.0-100.0); Mean Platelet Volume 7.1; Monocytes # (A) 0.7 k/uL (0-1.0); Monocytes % (A) 5 %; Neutrophils # (A) 9.3 k/uL (1.3-7.7); Neutrophils % (A) 70 %; Platelet Count 324 k/uL (150-450); RDW 14.2 % (11.5-15.5); WBC 13.4 k/uL (3.8-10.6)
[2020-07-31 20:48] LABS: ALT 37 U/L (4-34); AST 36 U/L (14-36); African American GFR (CKD) >90 (>60 ml/min/1.73 sqM); Albumin 4.6 g/dL (3.5-5.0); Alkaline Phosphatase 119 U/L (38-126); Anion Gap 17 mmol/L; Blood Urea Nitrogen 5 mg/dL (7-17); Calcium 9.1 mg/dL (8.4-10.2); Carbon Dioxide 21 mmol/L (22-30); Chloride 105 mmol/L (98-107); Glucose 103 mg/dL (74-99); Non-African American GFR(CKD) >90 (>60 ml/min/1.73 sqM); Potassium 3.5 mmol/L (3.5-5.1); Sodium 143 mmol/L (137-145); Total Bilirubin 0.4 mg/dL (0.2-1.3); Total Protein 7.9 g/dL (6.3-8.2)
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
[2020-07-31 20:56] LABS: INR 0.9 (<1.2); Partial Thromboplastin Time 23.1 sec (22.0-30.0)
[2020-07-31 21:05] LABS: Appearance,Urine Clear (Clear); Bilirubin,Urine Negative (Negative); Blood,Urine Large (Negative); Color,Urine Light Yellow; Glucose,Urine (UA) Negative (Negative); Ketones,Urine Negative (Negative); Leukocyte Esterase,Urine Negative (Negative); Nitrite,Urine Negative (Negative); Protein,Urine Trace (Negative); RBC,Urine 1 /hpf (0-5); Specific Gravity,Urine 1.002 (1.001-1.035); Urobilinogen,Urine <2.0 mg/dL (<2.0); WBC,Urine 1 /hpf (0-5)
[2020-07-31 21:06] LABS: HCG,Qualitative Serum Not Detected
[2020-07-31 21:19] VITALS: RESP 20
[2020-07-31 21:19] LABS: Amphetamine Screen,Urine Not Detected (NotDetected); Barbiturate Screen,Urine Not Detected (NotDetected); Benzodiazepines Screen,Urine Not Detected (NotDetected); Cocaine Screen,Urine Not Detected (NotDetected); Methadone Screen, Urine Not Detected (NotDetected); Opiate Screen,Urine Not Detected (NotDetected); Oxycodone Screen, Urine Not Detected (NotDetected); Phencyclidine Screen,Urine Not Detected (NotDetected); Tricyclic Antidepressant,Urine Not Detected (NotDetected); Urn Cannabinoid Scrn Detected (NotDetected)
[2020-07-31 21:22] LABS: Alcohol 405 mg/dL
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
[2020-07-31 22:05] VITALS: BP 122/71; PULSE 99
[2020-07-31 22:26] VITALS: TEMP 99.2
== END 2020-07-31 22:24 | disposition home or self-care (01) ==
LOC: EC 19:47
DX: F10.129 Alcohol abuse with intoxication, unspecified (principal); F12.10 Cannabis abuse, uncomplicated; F17.200 Nicotine dependence, unspecified, uncomplicated; Y90.8 Blood alcohol level of 240 mg/100 ml or more; V89.2XXA Person injured in unspecified motor-vehicle accident, traffic, initial encounter
CPT/HCPCS: 99284 ×3; 36415; 93005; 80053; 85025; 85610; 85730; 81001; 84703; 80306; 72170; 71045; 72125; 70450; G0480; 80320

== ENCOUNTER 2020-09-22 07:54 | Day surgery (SDC) | payer OTHER ==
[2020-09-18 15:26] VITALS: BMI 41.9
[~2020-09-22 07:54] MED LIST: LACTATED RINGERS 1,000 ML IV SCH; LIDOCAINE 1% (10MG/ML) FOR IV START INTRADERMA PRN
[2020-09-22 08:59] VITALS: RESP 16; TEMP 97.8
[2020-09-22] MEDS ORDERED: LIDOCAINE 1% (10MG/ML) FOR IV START INTRADERMA ONE (09:01)
[2020-09-22] MEDS ORDERED: PROPOFOL 10 MG/ML 20 ML VIAL IV ONE (09:51)
--- NOTE | 2020-09-22 10:09 | P.PCN ---
Date of Procedure: 09/22/20 Description of Procedure: BRIEF HISTORY: Patient is a 34-year-old female presenting for esophagogastroduodenoscopy for hematemesis and reflux. Patient reports severe symptoms of reflux. Currently on omeprazole therapy. She reports refractory symptoms even on twice daily dosing. She has a lot of nighttime symptoms of heartburn and reflux. PROCEDURE PERFORMED: Esophagogastroduodenoscopy with biopsy. PREOPERATIVE DIAGNOSIS: Hematemesis, reflux, heartburn. ESTIMATED BLOOD LOSS: Minimal. IV sedation per anesthesia. PROCEDURE: After informed consent was obtained, the patient was brought into the endoscopy unit. IV sedation was administered by Anesthesia under continuous monitoring. Initially the Olympus GIF-190 video endoscope was inserted into the mouth. Esophagus intubated without any difficulty. It was gradually advanced into the stomach and duodenum and carefully examined. The bulb and the second part of the duodenum appeared normal, with biopsies taken . The scope at this time was withdrawn to the stomach, adequately insufflated with air, and upon careful examination, mucosa of the antrum, body, cardia and the fundus appeared normal, with biopsies of the antrum and body . The scope was then withdrawn into the esophagus. The GE junction was located at 36 cm from the incisors, with a small 1 cm hiatal hernia noted. In the distal esophagus there were areas of erythema with superficial erosions consistent with LA grade a distal esophagitis with biopsies of the lower esophagus taken. The esophagus otherwise appeared normal. The patient tolerated the procedure well. IMPRESSION: 1. LA grade a distal esophagitis. 2. Small hiatal hernia. 3. Biopsies of the duodenum, antrum body and lower esophagus. RECOMMENDATIONS: The findings of this examination were discussed with the patient and her partner. Okay to resume diet. Okay to resume medications. Extensive discussion with the patient regarding her symptoms and recommend a trial of OTC famotidine before bed. Patient should also try to adhere to a GERD diet and abstain from eating 3 hours prior to bed. Await pathology from biopsies. Follow-up with primary care physician as previously scheduled.
[2020-09-22 10:41] VITALS: BP 110/79; PULSE 74
== END 2020-09-22 11:00 | disposition home or self-care (01) ==
LOC: ORWHC2ENDO 07:54
PROVIDERS: ATTEND Internal Medicine
DX: K29.50 Unspecified chronic gastritis without bleeding (principal); K20.0 Eosinophilic esophagitis; K44.9 Diaphragmatic hernia without obstruction or gangrene; Z88.1 Allergy status to other antibiotic agents; Z79.891 Long term (current) use of opiate analgesic; Z79.899 Other long term (current) drug therapy; Z90.89 Acquired absence of other organs; Z98.890 Other specified postprocedural states; F17.210 Nicotine dependence, cigarettes, uncomplicated; F41.9 Anxiety disorder, unspecified; F32.9 Major depressive disorder, single episode, unspecified
CPT/HCPCS: 81025; 88305; 43239; J2704

== ENCOUNTER 2020-10-02 09:01 | Emergency (ER) | payer OTHER ==
[2020-10-02 09:10] VITALS: BP 143/86; PULSE 79; RESP 20; TEMP 97.7
--- NOTE | 2020-10-02 09:33 | ED ---
General Adult HPI - General Chief complaint: Skin/Abscess/Foreign Body Stated complaint: abscess on groin Time Seen by Provider: 10/02/20 09:14 Source: patient, RN notes reviewed, old records reviewed Mode of arrival: ambulatory Limitations: no limitations - History of Present Illness Initial comments: 34-year-old female history of tobacco use, hidradenitis suppurativa presenting with suspected abscess in the groin. She's had several draining hair follicles and small abscesses over the past week or so. She has one in particular that has not drained in the left groin. No fever chills. No history diabetes. Otherwise healthy. - Related Data Home Medications Medication Instructions Recorded Confirmed [place] Carbonate 900 mg PO HS 07/31/20 09/22/20 Lurasidone [Latuda] 40 mg PO HS 07/31/20 09/22/20 Melatonin 5 - 10 mg PO HS 07/31/20 09/22/20 Mirtazapine 15 mg PO HS 07/31/20 09/22/20 Naltrexone HCl [Revia] 50 mg PO DAILY 07/31/20 09/22/20 Omeprazole 20 mg PO DAILY 07/31/20 09/22/20 Previous Rx's Medication Instructions Recorded Cephalexin [Keflex] 500 mg PO QID #40 cap 10/02/20 Sulfamethox-Tmp 800-160Mg [Bactrim 1 tab PO Q12HR #20 tab 10/02/20 DS 800-160 mg] Allergies Allergy/AdvReac Type Severity Reaction Status Date / Time doxycycline Allergy Nausea & Verified 10/02/20 09:10 Vomiting Review of Systems ROS Statement: Those systems with pertinent positive or pertinent negative responses have been documented in the HPI. ROS Other: All systems not noted in ROS Statement are negative. Past Medical History Past Medical History: GERD/Reflux, Skin Disorder Additional Past Medical History / Comment(s): HS-HIDRADENITIS SUPPURATIVE (gland issues), History of Any Multi-Drug Resistant Organisms: None Reported Past Surgical History: Appendectomy Additional Past Surgical History / Comment(s): sweat glands removed,(STATES MULTIPLE SURGERIES FOR HS) Past Anesthesia/Blood Transfusion Reactions: No Reported Reaction Past Psychological History: Anxiety, Depression Smoking Status: Current every day smoker Past Alcohol Use History: None Reported Past Drug Use History: None Reported, Marijuana - Past Family History Mother History Unknown: Yes Additional Family Medical History / Comment(s): HHX UNKNOWN General Exam Limitations: no limitations General appearance: alert, in no apparent distress Head exam: Present: atraumatic, normocephalic Eye exam: Present: normal appearance, PERRL Neck exam: Present: normal inspection. Absent: tenderness, meningismus Respiratory exam: Present: normal lung sounds bilaterally. Absent: respiratory distress Cardiovascular Exam: Present: regular rate, normal rhythm GI/Abdominal exam: Present: soft. Absent: distended, tenderness Extremities exam: Present: normal inspection, normal capillary refill Neurological exam: Present: alert, oriented X3 Skin exam: Present: other (Within the groin there are several areas of folliculitis and one 2 cm indurated abscess in the left groin with no surrounding cellulitis. There is a central fluctuance.) Course Vital Signs 10/02/20 09:09 Temperature 97.7 F Pulse Rate 79 Respiratory 20 Rate Blood Pressure 143/86 O2 Sat by Pulse 98 Oximetry Procedures - Incision & Drainage Consent Obtained: verbal consent Site: vulva/vagina (Left suprapubic) I&D Cleaning Method: Betadine Sterile Field Used?: No Scalpel Used: #11 Needle Aspiration Performed?: Yes Irrigation Performed?: No I&D Drainage Obtained: Pus Culture Obtained?: No Medical Decision Making - Medical Decision Making 34-year-old female history of hidradenitis up to the presenting with an abscess in the left groin and suprapubic region. This is approximately 2 cm round with central fluctuance. No surrounding cellulitis. She has several other areas of folliculitis and small abscess that have previously drained. A neck incision with an 11 blade is performed and purulence is obtained. The patient will be started on antibiotics. She is instructed to abstain from tobacco use. Disposition Clinical Impression: Abscess Disposition: HOME SELF-CARE Condition: Good Instructions (If sedation given, give patient instructions): Abscess Incision and Drainage (ED), Abscess (ED) Prescriptions: Sulfamethox-Tmp 800-160Mg [Bactrim DS 800-160 mg] 1 tab PO Q12HR #20 tab Cephalexin [Keflex] 500 mg PO QID #40 cap Is patient prescribed a controlled substance at d/c from ED?: No Referrals: Fish Grimes DO [Primary Care Provider] - 1-2 days Time of Disposition: 09:32
== END 2020-10-02 09:47 | disposition home or self-care (01) ==
LOC: EC 09:01
DX: L02.214 Cutaneous abscess of groin (principal); K21.9 Gastro-esophageal reflux disease without esophagitis; F17.200 Nicotine dependence, unspecified, uncomplicated; Z79.899 Other long term (current) drug therapy; Z88.1 Allergy status to other antibiotic agents
CPT/HCPCS: 56405; 99282

== ENCOUNTER → 2020-10-28 | Outpatient (CLI) | payer OTHER ==
[2020-10-28 23:37] LABS: Basophils # (A) 0.04 X 10*3/uL (0.00-0.10); Basophils % (A) 0.4 %; Eosinophils # (A) 0.15 X 10*3/uL (0.04-0.35); Eosinophils % (A) 1.4 %; HCT 42.7 % (37.2-46.3); HGB 13.5 g/dL (12.0-15.0); Lymphocytes # (A) 2.54 X 10*3/uL (0.90-5.00); Lymphocytes % (A) 23.4 %; MCH 28.8 pg (27.0-32.0); MCHC 31.6 g/dL (32.0-37.0); MCV 91.2 fL (80.0-97.0); Mean Platelet Volume 10.3 fL (9.5-12.2); Monocytes # (A) 0.65 X 10*3/uL (0.20-1.00); Neutrophils # (A) 7.43 X 10*3/uL (1.80-7.70); Neutrophils % (A) 68.3 %; Platelet Count 337 X 10*3/uL (140-440); RBC 4.68 X 10*6/uL (4.10-5.20); RDW 13.2 % (11.5-14.5); WBC 10.86 X 10*3/uL (4.50-10.00)
[2020-10-29 00:32] LABS: Hemoglobin A1C 4.8 % (4.0-6.0)
[2020-10-29 03:57] LABS: African American GFR (CKD) 131.9 (60.0-200.0); Albumin 4.4 g/dL (3.80-4.90); Albumin/Globulin Ratio 1.52 (1.60-3.17); Anion Gap 8.9 mmol/L (4.00-12.00); BUN/Creat Ratio 12.86 Ratio (12.00-20.00); Bilirubin, Conjugated 0.2 mg/dL (0.20-0.40); Bilirubin,Unconjugated 0.5 mg/dL; Calcium 8.8 mg/dL (8.7-10.3); Carbon Dioxide 22.1 mmol/L (21.6-31.8); Chol/HDL Ratio 4.59; Globulin 2.9 g/dL (1.6-3.3); Non-African American GFR(CKD) 113.8 (60.0-200.0); Potassium 4.1 mmol/L (3.5-5.5); Total Bilirubin 0.7 mg/dL (0.2-1.2); Total Protein 7.3 g/dL (6.2-8.2)
[2020-10-29 04:05] LABS: T4, Free (Free Thyroxine) 1.2 ng/dL (0.80-1.80)
== END | disposition home or self-care (01) ==
LOC: LABWHC1 15:36
PROVIDERS: ATTEND Nurse Practitioner Psychiatric/Mental Health
DX: F10.20 Alcohol dependence, uncomplicated (principal); F31.4 Bipolar disorder, current episode depressed, severe, without psychotic features; Z79.899 Other long term (current) drug therapy
CPT/HCPCS: 36415; 80053; 80061; 82248; 83036; 84439; 84443; 85025

== ENCOUNTER 2020-11-13 16:49 | Emergency (ER) | payer OTHER ==
[2020-11-13 19:06] VITALS: BP 131/83; PULSE 65; RESP 16; TEMP 98
--- NOTE | 2020-11-13 20:44 | ED ---
General Adult HPI - General Chief complaint: Skin/Abscess/Foreign Body Stated complaint: Boil Time Seen by Provider: 11/13/20 20:31 Source: patient, RN notes reviewed Mode of arrival: ambulatory Limitations: no limitations - History of Present Illness Initial comments: Patient is a 34-year-old female that presents to emergency department with a boil on her left lower abdomen. She notes that while waiting in the emergency room waiting room it started draining on its own. She notes that she needs a work note to be of the return to work. She denied any other issues or complaints at this time. She denied any chest pain first breath headache nausea vomiting diarrhea constipation fever fatigue chills. - Related Data Home Medications Medication Instructions Recorded Confirmed [place] Carbonate 900 mg PO HS 07/31/20 09/22/20 Lurasidone [Latuda] 40 mg PO HS 07/31/20 09/22/20 Melatonin 5 - 10 mg PO HS 07/31/20 09/22/20 Mirtazapine 15 mg PO HS 07/31/20 09/22/20 Naltrexone HCl [Revia] 50 mg PO DAILY 07/31/20 09/22/20 Omeprazole 20 mg PO DAILY 07/31/20 09/22/20 Previous Rx's Medication Instructions Recorded Cephalexin [Keflex] 500 mg PO QID #40 cap 10/02/20 Sulfamethox-Tmp 800-160Mg [Bactrim 1 tab PO Q12HR #20 tab 10/02/20 DS 800-160 mg] Sulfamethox-Tmp 800-160Mg [Bactrim 1 each PO Q12HR #20 tab 11/13/20 Ds] Allergies Allergy/AdvReac Type Severity Reaction Status Date / Time doxycycline Allergy Nausea & Verified 11/13/20 19:06 Vomiting Review of Systems ROS Statement: Those systems with pertinent positive or pertinent negative responses have been documented in the HPI. ROS Other: All systems not noted in ROS Statement are negative. Past Medical History Past Medical History: GERD/Reflux, Skin Disorder Additional Past Medical History / Comment(s): HS-HIDRADENITIS SUPPURATIVE (gland issues), History of Any Multi-Drug Resistant Organisms: None Reported Past Surgical History: Appendectomy Additional Past Surgical History / Comment(s): sweat glands removed,(STATES MULTIPLE SURGERIES FOR HS) Past Anesthesia/Blood Transfusion Reactions: No Reported Reaction Past Psychological History: Anxiety, Depression Smoking Status: Current every day smoker Past Alcohol Use History: None Reported Past Drug Use History: None Reported, Marijuana - Past Family History Mother History Unknown: Yes Additional Family Medical History / Comment(s): HHX UNKNOWN General Exam Limitations: no limitations General appearance: alert, in no apparent distress, obese Head exam: Present: atraumatic, normocephalic, normal inspection Eye exam: Present: normal appearance, PERRL, EOMI. Absent: scleral icterus, conjunctival injection, periorbital swelling Neck exam: Present: normal inspection Respiratory exam: Present: normal lung sounds bilaterally. Absent: respiratory distress, wheezes, rales, rhonchi, stridor Cardiovascular Exam: Present: regular rate, normal rhythm, normal heart sounds. Absent: systolic murmur, diastolic murmur, rubs, gallop, clicks Extremities exam: Present: normal inspection, full ROM, normal capillary refill. Absent: tenderness, pedal edema, joint swelling, calf tenderness Neurological exam: Present: alert, oriented X3 Psychiatric exam: Present: normal affect, normal mood Skin exam: Present: warm, dry, intact, normal color, other (Draining boil left lower abdomen.). Absent: rash Course Vital Signs 11/13/20 19:04 Temperature 98 F Pulse Rate 65 Respiratory 16 Rate Blood Pressure 131/83 O2 Sat by Pulse 98 Oximetry Medical Decision Making - Medical Decision Making 34-year-old female with a draining boil to her left lower abdomen. Wound culture swab ordered. Case discussed with Dr. Jessica, patient discharge home with antibiotics. Disposition Clinical Impression: Abscess Disposition: HOME SELF-CARE Condition: Stable Instructions (If sedation given, give patient instructions): Abscess (ED) Additional Instructions: Please return to the Emergency Department if symptoms worsen or any other concerns. Follow-up with primary care 1-2 days. Take antibiotics until complete. Is patient prescribed a controlled substance at d/c from ED?: No Referrals: Fish Grimes DO [Primary Care Provider] - 1-2 days Time of Disposition: 20:44
== END 2020-11-13 21:21 | disposition home or self-care (01) ==
LOC: EC 16:49
DX: L02.211 Cutaneous abscess of abdominal wall (principal); F17.200 Nicotine dependence, unspecified, uncomplicated; K21.9 Gastro-esophageal reflux disease without esophagitis; Z88.1 Allergy status to other antibiotic agents; Z79.899 Other long term (current) drug therapy
CPT/HCPCS: 87070; 87077; 87186; 87205; 99283

== ENCOUNTER 2020-11-19 18:30 | Emergency (ER) | payer OTHER ==
[2020-11-19 20:10] VITALS: BP 117/77; PULSE 95; RESP 20; TEMP 97.8
--- NOTE | 2020-11-19 20:10 | ED ---
General Adult HPI - General Source: patient, RN notes reviewed Mode of arrival: ambulatory Limitations: no limitations <Contreras Vargas - Last Filed: 11/19/20 20:09> <Yevgeniy Archer - Last Filed: 11/19/20 22:13> - General Stated complaint: Cyst on Rt Breast Time Seen by Provider: 11/19/20 19:00 - History of Present Illness Initial comments: This is a 34-year-old female presents emergency Department chief complaint of abscess. Patient states she has hydradenitis supportive, states that she is currently on antibiotics. Patient was recent seen here for an abscess. She states that her right breast is a large abscess. Patient has had surgery in the past. Patient denies any fever, chills. Patient is very painful. Patient states she's had issues in her armpits, abdomen, breast region. Patient is currently taking Bactrim. (Contreras Vargas) Patient was initially triaged by the emergency department mid-level provider. His HPI above is accurate and I agree with his assessment. She is a history of hydradenitis with multiple incision and drainages of abscesses as well as surgeries with skin grafts. She is chronically on Bactrim and clindamycin. She presents complaining primarily of a painful abscess under her right breast. She is seeking incision and drainage. She denies any fevers, chills, abdominal pain, nausea, vomiting, chest pain, shortness breath. She is no other acute complaint at this time. She is asking for follow up information for surgeon. (Yevgeniy Archer) - Related Data Home Medications Medication Instructions Recorded Confirmed [place] Carbonate 900 mg PO HS 07/31/20 09/22/20 Lurasidone [Latuda] 40 mg PO HS 07/31/20 09/22/20 Melatonin 5 - 10 mg PO HS 07/31/20 09/22/20 Mirtazapine 15 mg PO HS 07/31/20 09/22/20 Naltrexone HCl [Revia] 50 mg PO DAILY 07/31/20 09/22/20 Omeprazole 20 mg PO DAILY 07/31/20 09/22/20 Previous Rx's Medication Instructions Recorded Cephalexin [Keflex] 500 mg PO QID #40 cap 10/02/20 Sulfamethox-Tmp 800-160Mg [Bactrim 1 tab PO Q12HR #20 tab 10/02/20 DS 800-160 mg] Sulfamethox-Tmp 800-160Mg [Bactrim 1 each PO Q12HR #20 tab 11/13/20 Ds] Allergies Allergy/AdvReac Type Severity Reaction Status Date / Time doxycycline Allergy Nausea & Verified 11/19/20 20:10 Vomiting Review of Systems ROS Other: All systems not noted in ROS Statement are negative. <Contreras Vargas - Last Filed: 11/19/20 20:09> ROS Other: All systems not noted in ROS Statement are negative. <Yevgeniy Archer - Last Filed: 11/19/20 22:13> ROS Statement: Those systems with pertinent positive or pertinent negative responses have been documented in the HPI. Review of Systems: CONST: Denies fever EYES: Denies blurry vision ENT: Denies nasal congestion C/V: Denies Chest pain RESP: Denies shortness of breath GI: Denies abdominal pain : Denies dysuria SKIN: Endorses hidradenitis MSK: Denies joint pain. NEURO: Denies headache (Yevgeniy Archer) Past Medical History Past Medical History: GERD/Reflux, Skin Disorder Additional Past Medical History / Comment(s): HS-HIDRADENITIS SUPPURATIVE (gland issues), History of Any Multi-Drug Resistant Organisms: None Reported Past Surgical History: Appendectomy Additional Past Surgical History / Comment(s): sweat glands removed,(STATES MULTIPLE SURGERIES FOR HS) Past Anesthesia/Blood Transfusion Reactions: No Reported Reaction Past Psychological History: Anxiety, Depression Smoking Status: Current every day smoker Past Alcohol Use History: None Reported Past Drug Use History: None Reported, Marijuana - Past Family History Mother History Unknown: Yes Additional Family Medical History / Comment(s): HHX UNKNOWN <Contreras Vargas - Last Filed: 11/19/20 20:09> General Exam <Yevgeniy Archer - Last Filed: 11/19/20 22:13> - General Exam Comments Initial Comments: General: Appears in no acute distress. HEAD: Normal with no signs of head trauma. EYES: EOMI ENT: Hearing grossly intact RESPIRATORY:. equal Breath sounds bilaterally C/V: Regular rate and rhythm ABD: Abd nondistended EXT: This deformity SKIN: Patient has multiple surgical sites as well as various healing abscesses over her skin. Her primary painful axis is a small approximately 1 cm in diameter abscess located under her right breast. There is fluctuance. NEURO: Alert and oriented 4. (Yevgeniy Archer) Course Vital Signs 11/19/20 20:07 Temperature 97.8 F Pulse Rate 95 Respiratory 20 Rate Blood Pressure 117/77 O2 Sat by Pulse 96 Oximetry Procedures - Incision & Drainage Consent Obtained: written consent Site: chest Anesthetic Used: lidocaine 1% I&D Cleaning Method: Alcohol Wipe Sterile Field Used?: Yes Scalpel Used: #11 Needle Aspiration Performed?: No Irrigation Performed?: No I&D Drainage Obtained: Pus Culture Obtained?: No Patient Tolerated Procedure: well <Yevgeniy Archer - Last Filed: 11/19/20 22:13> Medical Decision Making <Yevgeniy Archer - Last Filed: 11/19/20 22:13> - Medical Decision Making Based on the patient's presentation and physical exam, she suffers from hidradenitis. She is seeking incision and drainage of an abscess in her right breast. I advised her to continue to take her chronic clindamycin and Bactrim. She is asking for follow up information for a surgeon which I will provide, Dr. Molina who is currently on-call. Incision and drainage was performed by myself. Please see the procedure note for further details. She tolerated the procedure well. Patient is stable for discharge home at this time. Patient was given 2 [place] 5 for analgesia. She takes Motrin at home for pain. I instructed the patient to follow up with their PCP in the next 3 days. I provided contact information for follow up with Dr. Molina. I explained that the patient should return to the emergency department if they experience any worsening symptoms. Strict return precautions were discussed with the patient. The patient expressed understanding of these instructions. I answered all questions that the patient had. The patient was discharged home in good condition with their prescriptions and follow up information. (Yevgeniy Archer) Disposition <Contreras Vargas - Last Filed: 11/19/20 20:09> Is patient prescribed a controlled substance at d/c from ED?: No <Yevgeniy Archer - Last Filed: 11/19/20 22:13> Clinical Impression: Hidradenitis suppurativa, Encounter for incision and drainage procedure Disposition: HOME SELF-CARE Condition: Good Instructions (If sedation given, give patient instructions): Abscess Incision and Drainage (DC), Abscess (ED) Referrals: None,Stated [Primary Care Provider] - 1-2 days Jarrett Molina MD [Medical Doctor] - 1-2 days
[2020-11-19] MEDS ORDERED: HYDROcodone/APAP 5-325MG 1 EACH TAB PO STA (21:17)
[2020-11-19] MEDS ORDERED: LIDOCAINE 1% INJ 10MG/ML (20 ML MDV) SQ ONE (21:18)
== END 2020-11-19 22:21 | disposition home or self-care (01) ==
LOC: EC 18:30
DX: L73.2 Hidradenitis suppurativa (principal); K21.9 Gastro-esophageal reflux disease without esophagitis; Z88.1 Allergy status to other antibiotic agents; F17.200 Nicotine dependence, unspecified, uncomplicated; Z79.899 Other long term (current) drug therapy
CPT/HCPCS: 99282; J2001

== ENCOUNTER 2020-12-28 06:55 | Day surgery (SDC) | payer OTHER ==
[2020-12-25 10:45] VITALS: BMI 40.7
[~2020-12-28 06:55] MED LIST changes: +ACETAMINOPHEN TAB 500 MG TAB PO PRN; +DEXAMETHASONE SOD PHOSPHATE 4 MG/ML 1 ML VIAL IV ONE; +HEPARIN SODIUM,PORCINE/PF 5,000 UNIT/0.5 ML SYRINGE SQ PRN; +HYDROmorphone 0.5 MG/0.5 ML SYRINGE IVP PRN; +MIDAZOLAM 2 MG/2 ML VIAL IV PRN; +ONDANSETRON 4 MG/2 ML VIAL IVP ONE
[2020-12-28 08:08] VITALS: TEMP 97.1
--- NOTE | 2020-12-28 08:58 | P.GSHP ---
History of Present Illness H&P Date: 12/28/20 Chief Complaint: Chronic skin cyst right posterior neck Is a [age] female who's had troubles with a chronic skin cyst right posterior neck. Patient's had infections in the past. He presents today for cystoscopy excision. Past Medical History Past Medical History: GERD/Reflux, Skin Disorder Additional Past Medical History / Comment(s): Hx-HIDRADENITIS SUPPURATIVE (gland issues),. wound on rt neck History of Any Multi-Drug Resistant Organisms: MRSA Date of last positivie culture/infection: 2015 MDRO Source:: skin wound back of neck Past Surgical History: Appendectomy Additional Past Surgical History / Comment(s): sweat glands removed,(STATES MULTIPLE SURGERIES FOR HS) Past Anesthesia/Blood Transfusion Reactions: No Reported Reaction Additional Past Anesthesia/Blood Transfusion Reaction / Comment(s): hx blood transfusion 2009 without reaction Smoking Status: Current every day smoker - Past Family History Mother History Unknown: Yes Additional Family Medical History / Comment(s): maternal aunts cancer Father Additional Family Medical History / Comment(s): paternal grandma, aunts cancer Medications and Allergies Home Medications Medication Instructions Recorded Confirmed Type [place] Carbonate 900 mg PO HS 07/31/20 12/25/20 History Lurasidone [Latuda] 40 mg PO HS 07/31/20 12/25/20 History Mirtazapine 15 mg PO HS 07/31/20 12/25/20 History Omeprazole 20 mg PO DAILY 07/31/20 12/25/20 History Clindamycin (Unkn.Dose) 1 dose PO TID 12/25/20 12/25/20 History Allergies Allergy/AdvReac Type Severity Reaction Status Date / Time doxycycline Allergy Nausea & Verified 12/28/20 07:57 Vomiting Surgical - Exam Vital Signs Temp Pulse Resp BP Pulse Ox 97.1 F L 67 16 103/67 99 12/28/20 08:06 12/28/20 08:06 12/28/20 08:06 12/28/20 08:06 12/28/20 08:06 - General well developed, no distress - Eyes PERRL - ENT normal pinna - Neck no masses - Respiratory normal expansion - Cardiovascular Rhythm: regular - Abdomen Abdomen: soft, non tender - Integumentary 2 cm chronically inflamed skin cyst right posterior neck Assessment and Plan Assessment: We'll perform excision of chronically inflamed skin cyst right posterior neck
[2020-12-28] MEDS ORDERED: ceFAZolin 3 GM in SODIUM CHLORIDE 0.9% 100 ML IVPB ONE (09:00)
[2020-12-28] MEDS ORDERED: fentaNYL (PF) 50 MCG/ML 2 ML AMP ONE (09:05)
[2020-12-28] MEDS ORDERED: KETAMINE 10 MG/ML 20 ML VIAL ONE (09:05)
[2020-12-28] MEDS ORDERED: PROPOFOL 10 MG/ML 20 ML VIAL IV ONE (09:05)
[2020-12-28] MEDS ORDERED: MIDAZOLAM 2 MG/2 ML VIAL ONE (09:05)
[2020-12-28] MEDS ORDERED: BUPIVACAINE (PF) 0.5% 30 ML VIAL SQ ONE (09:22)
--- NOTE | 2020-12-28 09:42 | P.OP ---
Date of Procedure: 12/28/20 Preoperative Diagnosis: Right posterior neck skin lesion Postoperative Diagnosis: Right posterior neck skin lesion Procedure(s) Performed: Excision of right posterior neck skin lesion Anesthesia: MAC Surgeon: Earl Tracy Estimated Blood Loss (ml): 5 Pathology: other (Right posterior neck skin lesion) Condition: stable Disposition: PACU Description of Procedure: The patient's placed on operating room table in the supine position. Her neck was rotated. Her right posterior neck skin lesion was seen. There is prepped and draped usual sterile fashion. The area was anesthetized 1% local Xylocaine. Using a 15 blade elliptical skin incision was made around the skin lesion. The lesion measured 3 x 4 cm. The Bovie was used then to dissect subcutaneous tissues. Specimens of pathology. The skin was closed interrupted 3-0 nylon suture. Sterile dressing was applied. Patient tolerated the procedure well she will was sent to recovery room stable condition.
[2020-12-28 10:40] VITALS: BP 113/73; PULSE 61; RESP 17
== END 2020-12-28 10:38 | disposition home or self-care (01) ==
LOC: OR 06:55
PROVIDERS: ATTEND Surgery
DX: L72.0 Epidermal cyst (principal); K21.9 Gastro-esophageal reflux disease without esophagitis; L73.2 Hidradenitis suppurativa; Z86.14 Personal history of Methicillin resistant Staphylococcus aureus infection; Z90.49 Acquired absence of other specified parts of digestive tract; Z98.890 Other specified postprocedural states; Z80.9 Family history of malignant neoplasm, unspecified; F17.210 Nicotine dependence, cigarettes, uncomplicated; F41.9 Anxiety disorder, unspecified; F32.9 Major depressive disorder, single episode, unspecified; Z79.899 Other long term (current) drug therapy; Z88.1 Allergy status to other antibiotic agents
CPT/HCPCS: 88304; 11424; J2250; J1100; J0690; J2405; J3010; J2704; J1644

== ENCOUNTER 2021-03-25 02:54 | Emergency (ER) | payer OTHER ==
[2021-03-25 03:02] VITALS: BP 112/80; PULSE 93; TEMP 98.3
--- NOTE | 2021-03-25 03:13 | ED ---
Recheck HPI - General Chief Complaint: Recheck/Abnormal Lab/Rx Stated Complaint: Covid test Time Seen by Provider: 03/25/21 03:06 Source: patient, family, RN notes reviewed, old records reviewed Mode of arrival: ambulatory Limitations: no limitations - History of Present Illness Initial Comments: This is a 35-year-old female to the emergency department today. Patient presents today for evaluation of possible coronavirus with positive coronavirus exposure. Patient is unvaccinated presented with a runny nose without fever. Patient does live with another individual who does have positive coronavirus MD Complaint: abnormal lab (concern for COVID) -: hour(s) Returns Today for: Called Because of Abnormal Lab/Test, persistent/worsening pain related to initial visit Symptoms Since Prior Visit: worsening pain Context: called for abnormal lab result (known exposure) Associated Symptoms: chills, other (runny nose) Treatments Prior to Arrival: cold therapy - Related Data Home Medications Medication Instructions Recorded Confirmed [place] Carbonate 900 mg PO HS 07/31/20 12/25/20 Lurasidone [Latuda] 40 mg PO HS 07/31/20 12/25/20 Mirtazapine 15 mg PO HS 07/31/20 12/25/20 Omeprazole 20 mg PO DAILY 07/31/20 12/25/20 Clindamycin (Unkn.Dose) 1 dose PO TID 12/25/20 12/25/20 Allergies Allergy/AdvReac Type Severity Reaction Status Date / Time doxycycline Allergy Nausea & Verified 03/25/21 03:02 Vomiting Review of Systems ROS Statement: Those systems with pertinent positive or pertinent negative responses have been documented in the HPI. ROS Other: All systems not noted in ROS Statement are negative. Past Medical History Past Medical History: GERD/Reflux, Skin Disorder Additional Past Medical History / Comment(s): Hx-HIDRADENITIS SUPPURATIVE (gland issues),. wound on rt neck History of Any Multi-Drug Resistant Organisms: MRSA Date of last positivie culture/infection: 2015 MDRO Source:: skin wound back of neck Past Surgical History: Appendectomy Additional Past Surgical History / Comment(s): sweat glands removed,(STATES MULTIPLE SURGERIES FOR HS) Past Anesthesia/Blood Transfusion Reactions: No Reported Reaction Additional Past Anesthesia/Blood Transfusion Reaction / Comment(s): hx blood transfusion 2009 without reaction Past Psychological History: Anxiety, Depression Smoking Status: Current every day smoker Past Alcohol Use History: None Reported Past Drug Use History: None Reported - Past Family History Mother History Unknown: Yes Additional Family Medical History / Comment(s): maternal aunts cancer Father Additional Family Medical History / Comment(s): paternal grandma, aunts cancer General Exam Limitations: no limitations General appearance: alert, in no apparent distress Head exam: Present: atraumatic, normocephalic, normal inspection Eye exam: Present: normal appearance, PERRL, EOMI. Absent: scleral icterus, conjunctival injection, periorbital swelling ENT exam: Present: normal exam, mucous membranes moist Neck exam: Present: normal inspection. Absent: tenderness, meningismus, lymphadenopathy Respiratory exam: Present: normal lung sounds bilaterally. Absent: respiratory distress, wheezes, rales, rhonchi, stridor Cardiovascular Exam: Present: regular rate, normal rhythm, normal heart sounds. Absent: systolic murmur, diastolic murmur, rubs, gallop, clicks GI/Abdominal exam: Present: soft, normal bowel sounds. Absent: distended, tenderness, guarding, rebound, rigid Extremities exam: Present: normal inspection, full ROM, normal capillary refill. Absent: tenderness, pedal edema, joint swelling, calf tenderness Back exam: Present: normal inspection Neurological exam: Present: alert, oriented X3, CN II-XII intact Psychiatric exam: Present: normal affect, normal mood Skin exam: Present: warm, dry, intact, normal color. Absent: rash Course Vital Signs 03/25/21 03/25/21 02:59 03:19 Temperature 98.3 F Pulse Rate 93 Respiratory 22 16 Rate Blood Pressure 112/80 O2 Sat by Pulse 100 Oximetry - Reevaluation(s) Reevaluation #1: 03/25/21 03:33 medical record is reviewed Reevaluation #2: 03/25/21 03:33 patient remains asymptomatic here in the ED Reevaluation #3: 03/25/21 03:33 patient is informed of results and questions answered Medical Decision Making - Medical Decision Making 35 female to the emergency department today. Patient does have positive coronavirus exposure but does not have coronavirus. Patient can be discharged home - Lab Data Lab Results 03/25/21 Range/Units 03:17 Coronavirus (PCR) Not Detected (Not Detectd) Disposition Clinical Impression: Exposure to 2019 novel coronavirus Disposition: HOME SELF-CARE Condition: Good Instructions (If sedation given, give patient instructions): Coronavirus Disease 2019 (COVID-19) Is patient prescribed a controlled substance at d/c from ED?: No Referrals: Fish Grimes DO [Primary Care Provider] - 1-2 days
[2021-03-25 03:19] VITALS: RESP 16
== END 2021-03-25 04:15 | disposition home or self-care (01) ==
LOC: EC 02:54
DX: R68.83 Chills (without fever) (principal); R09.89 Other specified symptoms and signs involving the circulatory and respiratory systems; K21.9 Gastro-esophageal reflux disease without esophagitis; F17.200 Nicotine dependence, unspecified, uncomplicated; Z20.822 Contact with and (suspected) exposure to COVID-19; Z88.1 Allergy status to other antibiotic agents; Z79.899 Other long term (current) drug therapy
CPT/HCPCS: 87635; 99283

== ENCOUNTER 2021-05-08 18:31 | Emergency (ER) | payer OTHER ==
[2021-05-08] MEDS ORDERED: LIDOCAINE 1% INJ 10MG/ML (20 ML MDV) SQ ONE (20:22)
[2021-05-08] MEDS ORDERED: LIDOCAINE-PRILOCAINE 2.5-2.5% CREAM 5 GM TUBE TOPICAL STA (20:41)
--- NOTE | 2021-05-08 21:00 | ED ---
Skin/Abscess/FB HPI - General Chief complaint: Skin/Abscess/Foreign Body Stated complaint: Female Time Seen by Provider: 05/08/21 20:30 Source: patient, RN notes reviewed, old records reviewed Mode of arrival: ambulatory Limitations: no limitations - History of Present Illness Initial comments: 35-year-old black female presents to the emergency room with complaints of multiple abscesses to her labia and left groin. Patient has a history of hidradenitis. She has been in the emergency room multiple times for incision and drainage. She states she has seen dermatology in the past. She denies any fevers. MD complaint: abscess/boil Consistency: constant - Related Data Home Medications Medication Instructions Recorded Confirmed [place] Carbonate 900 mg PO HS 07/31/20 12/25/20 Lurasidone [Latuda] 40 mg PO HS 07/31/20 12/25/20 Mirtazapine 15 mg PO HS 07/31/20 12/25/20 Omeprazole 20 mg PO DAILY 07/31/20 12/25/20 Clindamycin (Unkn.Dose) 1 dose PO TID 12/25/20 12/25/20 Previous Rx's Medication Instructions Recorded Cephalexin [Keflex] 500 mg PO Q6HR 7 Days #28 cap 05/08/21 Sulfamethox-Tmp 800-160Mg [Bactrim 1 each PO Q12HR 7 Days #14 tab 05/08/21 Ds] Allergies Allergy/AdvReac Type Severity Reaction Status Date / Time doxycycline Allergy Nausea & Verified 05/08/21 18:43 Vomiting Review of Systems ROS Statement: Those systems with pertinent positive or pertinent negative responses have been documented in the HPI. ROS Other: All systems not noted in ROS Statement are negative. Past Medical History Past Medical History: GERD/Reflux, Skin Disorder Additional Past Medical History / Comment(s): Hx-HIDRADENITIS SUPPURATIVE (gland issues),. wound on rt neck History of Any Multi-Drug Resistant Organisms: MRSA Date of last positivie culture/infection: 2015 MDRO Source:: skin wound back of neck Past Surgical History: Appendectomy Additional Past Surgical History / Comment(s): sweat glands removed,(STATES MULTIPLE SURGERIES FOR HS) Past Anesthesia/Blood Transfusion Reactions: No Reported Reaction Additional Past Anesthesia/Blood Transfusion Reaction / Comment(s): hx blood transfusion 2009 without reaction Past Psychological History: Anxiety, Depression Smoking Status: Current every day smoker Past Alcohol Use History: None Reported Past Drug Use History: None Reported - Past Family History Mother History Unknown: Yes Additional Family Medical History / Comment(s): maternal aunts cancer Father Additional Family Medical History / Comment(s): paternal grandma, aunts cancer General Exam Limitations: no limitations General appearance: alert, in no apparent distress Cardiovascular Exam: Present: regular rate Neurological exam: Present: alert, oriented X3 Psychiatric exam: Present: normal affect, normal mood Skin exam: Present: warm, dry, normal color, other (Left groin abscess measuring approximately 1 cm; right labial abscess measuring approximately 0.5 centimet er). Absent: cyanosis, diaphoretic Course Vital Signs 05/08/21 05/08/21 18:41 21:38 Temperature 98.6 F 98.7 F Pulse Rate 85 74 Respiratory 20 22 Rate Blood Pressure 129/77 139/84 O2 Sat by Pulse 97 97 Oximetry Procedures - Incision & Drainage Consent Obtained: verbal consent Site: vulva/vagina Anesthetic Used: lidocaine 1% (emla) I&D Cleaning Method: Betadine Sterile Field Used?: Yes Scalpel Used: #11 Needle Aspiration Performed?: No Irrigation Performed?: No I&D Drainage Obtained: Pus, Blood Culture Obtained?: No Patient Tolerated Procedure: well Medical Decision Making - Medical Decision Making Patient presents with multiple labial abscesses and left monos pubis abscess. She denies any fevers, nausea or vomiting. Two seperate incision and drainage procedures performed, one on the left mons with minimal amount of pus and blood, and one of the right labia majora which was indurated no drainage. Patient was placed on Bactrim and Keflex. She was directed to follow up with dermatology and return if any new or concerning symptoms including increased pain or fevers. She was given a referral for dermatology for continuation of care. Case discussed with Dr. Colunga Disposition Clinical Impression: Abscess, Hidradenitis suppurativa Disposition: HOME SELF-CARE Condition: Good Instructions (If sedation given, give patient instructions): Abscess Incision and Drainage (ED), Sitz Bath (DC) Additional Instructions: Use a sitz bath to promote drainage as directed. Take antibiotics as prescribed. Follow-up with dermatology for continuation of care. Return to the emergency room with any new or concerning symptoms. Prescriptions: Sulfamethox-Tmp 800-160Mg [Bactrim Ds] 1 each PO Q12HR 7 Days #14 tab Cephalexin [Keflex] 500 mg PO Q6HR 7 Days #28 cap Is patient prescribed a controlled substance at d/c from ED?: No Referrals: Darien Garcia MD [Primary Care Provider] - 1-2 days Ana Chan MD [REFERRING] - 1-2 days Time of Disposition: 21:26
[2021-05-08] MEDS ORDERED: ACET/COD 300 MG/30 MG STARTER PACK 6 TAB BTL PO STA (21:24)
[2021-05-08 21:41] VITALS: BP 139/84; PULSE 74; RESP 22; TEMP 98.7
== END 2021-05-08 21:41 | disposition home or self-care (01) ==
LOC: EC 18:31
DX: L73.2 Hidradenitis suppurativa (principal); L02.214 Cutaneous abscess of groin; J45.909 Unspecified asthma, uncomplicated; F17.200 Nicotine dependence, unspecified, uncomplicated; Z79.83 Long term (current) use of bisphosphonates; Z88.1 Allergy status to other antibiotic agents
CPT/HCPCS: 56405; 99283; J2001

== ENCOUNTER 2021-06-12 12:18 | Emergency (ER) | payer OTHER ==
[2021-06-12 12:24] VITALS: BP 106/73; PULSE 76; RESP 18; TEMP 97.7
[2021-06-12] MEDS ORDERED: KETOROLAC 15 MG/ML 1 ML VIAL IM STA (12:31)
--- NOTE | 2021-06-12 12:35 | ED ---
General Adult HPI - General Chief complaint: Extremity Problem,Nontraumatic Stated complaint: L ankle pain Time Seen by Provider: 06/12/21 12:32 Source: patient, RN notes reviewed, old records reviewed Mode of arrival: ambulatory Limitations: no limitations - History of Present Illness Initial comments: This is a pleasant 35-year-old female who presents with complaints of left ankle pain for 2 weeks. Patient states that she rolled her ankle 2 weeks ago and did see her primary care doctor who did an x-ray that was negative for fracture, stating it was likely a sprain. Patient states that she is on her feet at work all the time and the pain is not getting better. -: week(s) (2) Location: left (ankle) Radiation: non-radiation Severity scale (1-10): 7 Quality: aching Consistency: constant Worsens with: movement (ambulation or weight bearing) Associated Symptoms: denies other symptoms Treatments Prior to Arrival: other (PCP did xr) - Related Data Home Medications Medication Instructions Recorded Confirmed [place] Carbonate 900 mg PO HS 07/31/20 12/25/20 Lurasidone [Latuda] 40 mg PO HS 07/31/20 12/25/20 Mirtazapine 15 mg PO HS 07/31/20 12/25/20 Omeprazole 20 mg PO DAILY 07/31/20 12/25/20 Clindamycin (Unkn.Dose) 1 dose PO TID 12/25/20 12/25/20 Previous Rx's Medication Instructions Recorded Cephalexin [Keflex] 500 mg PO Q6HR 7 Days #28 cap 05/08/21 Sulfamethox-Tmp 800-160Mg [Bactrim 1 each PO Q12HR 7 Days #14 tab 05/08/21 Ds] Allergies Allergy/AdvReac Type Severity Reaction Status Date / Time doxycycline Allergy Nausea & Verified 06/12/21 12:24 Vomiting Review of Systems ROS Statement: Those systems with pertinent positive or pertinent negative responses have been documented in the HPI. ROS Other: All systems not noted in ROS Statement are negative. Past Medical History Past Medical History: GERD/Reflux, Skin Disorder Additional Past Medical History / Comment(s): Hx-HIDRADENITIS SUPPURATIVE (gland issues),. wound on rt neck History of Any Multi-Drug Resistant Organisms: MRSA Date of last positivie culture/infection: 2015 MDRO Source:: skin wound back of neck Past Surgical History: Appendectomy Additional Past Surgical History / Comment(s): sweat glands removed,(STATES MULTIPLE SURGERIES FOR HS) Past Anesthesia/Blood Transfusion Reactions: No Reported Reaction Additional Past Anesthesia/Blood Transfusion Reaction / Comment(s): hx blood transfusion 2010 without reaction Past Psychological History: Anxiety, Depression Smoking Status: Current every day smoker Past Alcohol Use History: None Reported Past Drug Use History: None Reported - Past Family History Mother History Unknown: Yes Additional Family Medical History / Comment(s): maternal aunts cancer Father Additional Family Medical History / Comment(s): paternal grandma, aunts cancer General Exam Limitations: no limitations General appearance: alert, in no apparent distress Eye exam: Present: normal appearance Respiratory exam: Absent: respiratory distress Cardiovascular Exam: Present: regular rate Extremities exam: Present: normal capillary refill. Absent: pedal edema Left Lower Leg exam: Present: normal inspection, full ROM. Absent: tenderness, swelling, ecchymosis, deformity, erythema, Homans' sign Ankle exam: Present: normal inspection, tenderness. Absent: swelling, abrasion, laceration, ecchymosis, deformity, crepitus, dislocation, erythema Foot/Toe exam: Present: normal inspection. Absent: tenderness, swelling, ecchymosis, dislocation, erythema, puncture wound, tenderness at base of 5th metatarsal Neurovascular tendon exam: Present: no vascular compromise. Absent: abnormal cap refill, pallor, foot drop Neurological exam: Present: alert, oriented X3 Psychiatric exam: Present: normal affect, normal mood Skin exam: Present: warm, dry, intact, normal color. Absent: cyanosis, diaphoretic, petechiae, pallor Course Vital Signs 06/12/21 12:20 Temperature 97.7 F Pulse Rate 76 Respiratory 18 Rate Blood Pressure 106/73 O2 Sat by Pulse 99 Oximetry Medical Decision Making - Medical Decision Making Patient sprained left ankle 2 weeks ago seen by PCP x-ray was negative. Patient states pain continues and worse when she is up on her feet. Repeat x-ray completed no evidence of fracture. She is neurovascularly intact and there is no evidence of swelling or erythema. She was given a shot of Toradol for pain. This is likely a ankle sprain is taking time to heal is explained patient is consistently on her feet. She was directed to take Motrin and follow up with orthopedics next week. Patient is requesting a note for work today which was provided. Case discussed with Dr. Colunga Disposition Clinical Impression: Ankle pain, left Disposition: HOME SELF-CARE Condition: Good Instructions (If sedation given, give patient instructions): Ankle Sprain (ED) Additional Instructions: Take 600 mg of Motrin every 8 hours for pain and swelling. Rest, ice and elevate. Follow-up with orthopedics next week. Is patient prescribed a controlled substance at d/c from ED?: No Referrals: Darien Garcia MD [Primary Care Provider] - 1-2 days Laron Olson MD [Medical Doctor] - 1-2 days Time of Disposition: 13:15
--- NOTE | 2021-06-12 12:55 | XR ---
EXAMINATION TYPE: XR ankle complete LT DATE OF EXAM: 06/12/2021 CLINICAL HISTORY: Pain for 2 weeks TECHNIQUE: Frontal, lateral and oblique images of the left ankle are obtained. COMPARISON: None. FINDINGS: There is no acute fracture/dislocation evident in the left ankle. The ankle mortise appea rs within normal limits. The overlying soft tissue appears unremarkable. Moderate size inferior calc aneal spur. An os trigonum is felt present. IMPRESSION: As above.
== END 2021-06-12 13:47 | disposition home or self-care (01) ==
LOC: EC 12:18
DX: M25.572 Pain in left ankle and joints of left foot (principal); F17.200 Nicotine dependence, unspecified, uncomplicated; K21.9 Gastro-esophageal reflux disease without esophagitis; Z79.899 Other long term (current) drug therapy; Z88.1 Allergy status to other antibiotic agents
CPT/HCPCS: 73610; 99283; 96372; J1885

== ENCOUNTER 2021-08-20 07:36 | Emergency (ER) | payer OTHER ==
[2021-08-20 07:43] VITALS: RESP 16; TEMP 97.4
[2021-08-20] MEDS ORDERED: LIDOCAINE 1%-EPI 1:100,000 20 ML VIAL SQ STA (07:45)
[2021-08-20] MEDS ORDERED: LIDOCAINE 1% INJ 10MG/ML (5 ML VIAL-PF) SQ ONE (07:59)
--- NOTE | 2021-08-20 08:20 | ED ---
General Adult HPI - General Chief complaint: Skin/Abscess/Foreign Body Stated complaint: Skin Abcess Time Seen by Provider: 08/20/21 07:44 Source: patient Mode of arrival: ambulatory Limitations: no limitations - History of Present Illness Initial comments: Dictation was produced using [employer] dictation software. please excuse any grammatical, word or spelling errors. Chief Complaint: 35-year-old female past medical history of hidradenitis supparativa presents to the emergency room for neck abscess History of Present Illness: Rgyaxs-yolk-nco female with extensive history of hidradenitis supparativa. Patient states that for the last 3-4 days she's had recurrent abscesses to her neck. Her last 4 days she is to suffer from pain comparable to abscess pain that she's had in the past. She went to see nurse practitioner Dr. Garcia's office who prescribed her Bactrim. Patient states that at 2 months she has a surgery with Dr. Garcia to treat recurrent abscesses. States that she does not have an appointment with Dr. Garcia for several weeks The ROS documented in this emergency department record has been reviewed and confirmed by me. Those systems with pertinent positive or negative responses have been documented in the HPI. All other systems are other negative and/or noncontributory. PHYSICAL EXAM: General Impression: Alert and oriented x3, not in acute distress HEENT: Normocephalic atraumatic, extra-ocular movements intact, pupils equal and reactive to light bilaterally, mucous membranes moist, palpatory tenderness over the nape of the neck at approximately T12 level with fluctuant mass in the soft tissues under scar tissue Cardiovascular: Heart regular rate and rhythm Chest: Able to complete full sentences, no retractions, no tachypnea Abdomen: abdomen soft, non-tender, non-distended, no organomegaly Musculoskeletal: Pulses present and equal in all extremities, no peripheral edema Motor: no focal deficits noted Neurological: CN II-XII grossly intact, no focal motor or sensory deficits noted Skin: Intact with no visualized rashes Psych: Normal affect and mood ED course: 35-year-old female presents emergency Department with abscess to the soft tissues of the posterior neck. Vital signs upon arrival are within acceptable limits. Patient currently on Bactrim. Plan care bedside ultrasound did show a anechoic area just under the area of pain. Needle aspiration under ultrasound guidance was attempted however with no aspiration of fluid. Patient given prescription for Keflex and by mouth analgesia. She is given referral to infectious disease for outpatient management of recurrent skin abscesses. Patient discharged. She is advised to follow-up with her primary care doctor. - Related Data Home Medications Medication Instructions Recorded Confirmed [place] Carbonate 900 mg PO HS 07/31/20 12/25/20 Lurasidone [Latuda] 40 mg PO HS 07/31/20 12/25/20 Mirtazapine 15 mg PO HS 07/31/20 12/25/20 Omeprazole 20 mg PO DAILY 07/31/20 12/25/20 Clindamycin (Unkn.Dose) 1 dose PO TID 12/25/20 12/25/20 Previous Rx's Medication Instructions Recorded Cephalexin [Keflex] 500 mg PO Q6HR 7 Days #28 cap 05/08/21 Sulfamethox-Tmp 800-160Mg [Bactrim 1 each PO Q12HR 7 Days #14 tab 05/08/21 Ds] Cephalexin [Keflex] 500 mg PO Q6HR 5 Days #20 cap 08/20/21 HYDROcodone/APAP 5-325MG [[place] 1 tab PO Q6HR PRN 3 Days #12 tab 08/20/21 5-325] Allergies Allergy/AdvReac Type Severity Reaction Status Date / Time doxycycline Allergy Nausea & Verified 08/20/21 07:39 Vomiting Review of Systems ROS Statement: Those systems with pertinent positive or pertinent negative responses have been documented in the HPI. ROS Other: All systems not noted in ROS Statement are negative. Past Medical History Past Medical History: GERD/Reflux, Skin Disorder Additional Past Medical History / Comment(s): Hx-HIDRADENITIS SUPPURATIVE (gland issues),. wound on rt neck History of Any Multi-Drug Resistant Organisms: MRSA Date of last positivie culture/infection: 2015 MDRO Source:: skin wound back of neck Past Surgical History: Appendectomy Additional Past Surgical History / Comment(s): sweat glands removed,(STATES MULTIPLE SURGERIES FOR HS) Past Anesthesia/Blood Transfusion Reactions: No Reported Reaction Additional Past Anesthesia/Blood Transfusion Reaction / Comment(s): hx blood transfusion 2009 without reaction Past Psychological History: Anxiety, Depression Smoking Status: Current every day smoker Past Alcohol Use History: None Reported Past Drug Use History: None Reported - Past Family History Mother History Unknown: Yes Additional Family Medical History / Comment(s): maternal aunts cancer Father Additional Family Medical History / Comment(s): paternal grandma, aunts cancer General Exam Limitations: no limitations Course Vital Signs 08/20/21 07:39 Temperature 97.4 F L Pulse Rate 110 H Respiratory 16 Rate Blood Pressure 113/71 O2 Sat by Pulse 100 Oximetry Procedures - Incision & Drainage Consent Obtained: verbal consent Site: neck (posterior at t12 level) Anesthetic Used: lidocaine 1% Sterile Field Used?: No Needle Aspiration Performed?: Yes Irrigation Performed?: No I&D Drainage Obtained: Other (no pus) Culture Obtained?: Yes Patient Tolerated Procedure: well Disposition Clinical Impression: Cellulitis of skin Disposition: HOME SELF-CARE Condition: Good Instructions (If sedation given, give patient instructions): Cellulitis (ED) Prescriptions: Cephalexin [Keflex] 500 mg PO Q6HR 5 Days #20 cap HYDROcodone/APAP 5-325MG [[place] 5-325] 1 tab PO Q6HR PRN 3 Days #12 tab PRN Reason: Severe Pain Is patient prescribed a controlled substance at d/c from ED?: Yes If prescribed controlled substance>3 days was MAPS reviewed?: Prescribed <3 Days Referrals: Darien Garcia MD [Primary Care Provider] - 1-2 days Demetrio Bustamante MD [STAFF PHYSICIAN] - 1-2 days
--- NOTE | 2021-08-20 08:34 | ED ---
Disposition Clinical Impression: Cellulitis of skin Disposition: HOME SELF-CARE Condition: Good Instructions (If sedation given, give patient instructions): Cellulitis (ED) Prescriptions: Cephalexin [Keflex] 500 mg PO Q6HR 5 Days #20 cap oxyCODONE-APAP 10-325MG [Percocet 10-325 mg] 1 tab PO Q4HR PRN 3 Days #18 tab PRN Reason: Pain Is patient prescribed a controlled substance at d/c from ED?: Yes If prescribed controlled substance>3 days was MAPS reviewed?: Prescribed <3 Days Referrals: Darien Garcia MD [Primary Care Provider] - 1-2 days Demetrio Bustamante MD [STAFF PHYSICIAN] - 1-2 days
[2021-08-20 08:47] VITALS: BP 122/68; PULSE 80
== END 2021-08-20 08:30 | disposition home or self-care (01) ==
LOC: EC 07:36
DX: L03.221 Cellulitis of neck (principal); F17.200 Nicotine dependence, unspecified, uncomplicated; K21.9 Gastro-esophageal reflux disease without esophagitis; Z88.1 Allergy status to other antibiotic agents; Z79.899 Other long term (current) drug therapy
CPT/HCPCS: 10060; 87070; 87205; 99283

== ENCOUNTER 2021-09-08 06:06 | Day surgery (SDC) | payer OTHER ==
[2021-09-06 11:38] VITALS: BMI 41.9
[~2021-09-08 06:06] MED LIST changes: -DEXAMETHASONE SOD PHOSPHATE 4 MG/ML 1 ML VIAL IV ONE; -HYDROmorphone 0.5 MG/0.5 ML SYRINGE IVP PRN; -MIDAZOLAM 2 MG/2 ML VIAL IV PRN; -ONDANSETRON 4 MG/2 ML VIAL IVP ONE
[2021-09-08] MEDS ORDERED: ONDANSETRON 4 MG/2 ML VIAL ONE (06:38)
[2021-09-08] MEDS ORDERED: LIDOCAINE 1% (10MG/ML) FOR IV START INTRADERMA ONE (06:55)
[2021-09-08] MEDS ORDERED: ONDANSETRON 4 MG/2 ML VIAL IVP ONE (06:56)
[2021-09-08] MEDS ORDERED: DEXAMETHASONE SOD PHOSPHATE 4 MG/ML 1 ML VIAL IVP ONE (06:57)
[2021-09-08] MEDS ORDERED: HYDROmorphone 0.5 MG/0.5 ML SYRINGE IVP PRN (07:00)
[2021-09-08] MEDS ORDERED: HYDROmorphone (PF) 1 MG/ML ONE (07:53)
[2021-09-08] MEDS ORDERED: LIDOCAINE 2% INJ 20 MG/ML (2 ML VIAL) ONE (07:53)
[2021-09-08] MEDS ORDERED: KETAMINE 10 MG/ML 20 ML VIAL ONE (07:53)
[2021-09-08] MEDS ORDERED: SUCCINYLCHOLINE CHLORIDE VIAL 200 MG/10 ML VIAL IV ONE (07:53)
[2021-09-08] MEDS ORDERED: fentaNYL (PF) 50 MCG/ML 2 ML AMP ONE (07:53)
[2021-09-08] MEDS ORDERED: PROPOFOL 10 MG/ML 20 ML VIAL IV ONE (07:53)
[2021-09-08] MEDS ORDERED: MIDAZOLAM 2 MG/2 ML VIAL ONE (07:53)
[2021-09-08] MEDS ORDERED: BUPIVACAIN-EPI 0.25%-1:200,000 30 ML VIAL SQ ONE (08:26)
--- NOTE | 2021-09-08 08:53 | P.GSHP ---
History of Present Illness H&P Date: 09/08/21 Chief Complaint: Chronically infected skin at base of neck Is a 35-year-old female who's had issues with chronically infected skin at the base of her neck posteriorly. Patient rents today for excision of chronically inflamed skin. Patient appears to have problems with epidermal inclusion cysts Past Medical History Past Medical History: Osteoarthritis (OA), Skin Disorder Additional Past Medical History / Comment(s): HIDRADENITIS SUPPURATIVE (skin condition with painfull lumps on skin )., occasional sob., lesion on neck -pt states occasional drainage. History of Any Multi-Drug Resistant Organisms: MRSA Date of last positivie culture/infection: 2015 MDRO Source:: skin wound back of neck Past Surgical History: Appendectomy Additional Past Surgical History / Comment(s): sweat glands removed,(STATES MULTIPLE SURGERIES).,skin lesion removed (12/28/20) Past Anesthesia/Blood Transfusion Reactions: No Reported Reaction Additional Past Anesthesia/Blood Transfusion Reaction / Comment(s): hx blood transfusion 2009 without reaction Past Psychological History: Anxiety, Depression Smoking Status: Current every day smoker Past Alcohol Use History: None Reported Additional Past Alcohol Use History / Comment(s): SMOKES 1/2 PPD , STARTED SMOKING AGE 18 Past Drug Use History: Marijuana Additional Drug Use History / Comment(s): . - Past Family History Mother History Unknown: Yes Additional Family Medical History / Comment(s): maternal aunts cancer Father Additional Family Medical History / Comment(s): paternal grandma, aunts cancer Medications and Allergies Home Medications Medication Instructions Recorded Confirmed Type Acetaminophen Tab [Tylenol] 650 mg PO Q6H PRN 09/06/21 09/08/21 History Albuterol Sulfate [Proair Hfa] 1 - 2 puff INHALATION Q6HR PRN 09/06/21 09/08/21 History oxyCODONE-APAP 10-325MG [Percocet 1 tab PO Q6HR PRN 09/06/21 09/08/21 History 10-325 mg] Allergies Allergy/AdvReac Type Severity Reaction Status Date / Time doxycycline Allergy Nausea & Verified 09/08/21 06:24 Vomiting Surgical - Exam Vital Signs Temp Pulse Resp BP Pulse Ox 97.9 F 65 18 106/73 99 09/08/21 06:28 09/08/21 06:28 09/08/21 06:28 09/08/21 06:28 09/08/21 06:28 - General well developed, well nourished, no distress - Eyes PERRL - ENT normal pinna - Neck no masses - Respiratory normal expansion - Cardiovascular Rhythm: regular - Abdomen Abdomen: soft, non tender - Integumentary Chronically infected area of skin measuring approximately 3 x 8 cm invasive neck posteriorly Assessment and Plan Assessment: Chronically infected skin with epidermal inclusion cyst base of neck performed wide local excision.
--- NOTE | 2021-09-08 08:55 | P.OP ---
Date of Procedure: 09/08/21 Preoperative Diagnosis: Chronically infected skin base of neck Postoperative Diagnosis: Chronically infected skin base of neck Procedure(s) Performed: Wide local excision of chronically infected skin base of neck with evidence of epidermal inclusion cyst Anesthesia: SAIMA Surgeon: Earl Tracy Estimated Blood Loss (ml): 5 Pathology: other (Skin) Condition: stable Disposition: PACU Description of Procedure: The patient's placed on the operative table in the lateral position after receiving general endotracheal tube anesthesia. Her neck was prepped and draped usual fashion. Elliptical skin incision was made around the infected skin. Using left cautery the skin was dissected free sent to pathology. The specimen measured approximately 4 x 8 cm. The wounds for hemostasis. The skin was closed with 3-0 nylon suture. 2 patient top she will well and was sent to recovery room in stable condition.
[2021-09-08 09:01] VITALS: TEMP 97
[2021-09-08] MEDS ORDERED: HYDROmorphone 0.5 MG/0.5 ML SYRINGE IVP ONE ×2 (09:14→09:55)
[2021-09-08] MEDS ORDERED: KETOROLAC 15 MG/ML 1 ML VIAL ONE (09:53)
[2021-09-08] MEDS ORDERED: KETOROLAC 15 MG/ML 1 ML VIAL IVP ONE (09:55)
[2021-09-08 10:40] VITALS: BP 109/64; PULSE 50; RESP 18
== END 2021-09-08 11:15 | disposition home or self-care (01) ==
LOC: OR 06:06
PROVIDERS: ATTEND Surgery
DX: L08.9 Local infection of the skin and subcutaneous tissue, unspecified (principal); M19.90 Unspecified osteoarthritis, unspecified site; L73.2 Hidradenitis suppurativa; Z86.14 Personal history of Methicillin resistant Staphylococcus aureus infection; Z90.49 Acquired absence of other specified parts of digestive tract; Z98.890 Other specified postprocedural states; F41.9 Anxiety disorder, unspecified; F32.A Depression, unspecified; F17.210 Nicotine dependence, cigarettes, uncomplicated; Z80.9 Family history of malignant neoplasm, unspecified; Z88.1 Allergy status to other antibiotic agents
CPT/HCPCS: 81025; 11426; J2250; J0330; J1100; J0690; J2405; J3010; J1170 ×2; J1885; J2704; J1644; J2001; 88304

== ENCOUNTER 2022-02-17 23:28 | Emergency (ER) | payer OTHER ==
[2022-02-17 23:50] VITALS: TEMP 98
[2022-02-18 00:29] LABS: Basophils # (A) 0.1 k/uL (0-0.2); Basophils % (A) 0 %; Eosinophils # (A) 0.1 k/uL (0-0.7); Eosinophils % (A) 1 %; HCT 43.3 % (34.0-46.0); HGB 14.1 gm/dL (11.4-16.0); Lymphocytes # (A) 2.5 k/uL (1.0-4.8); Lymphocytes % (A) 23 %; MCH 28.2 pg (25.0-35.0); MCHC 32.5 g/dL (31.0-37.0); MCV 86.9 fL (80.0-100.0); Mean Platelet Volume 7.9; Monocytes # (A) 0.4 k/uL (0-1.0); Monocytes % (A) 3 %; Neutrophils # (A) 7.8 k/uL (1.3-7.7); Neutrophils % (A) 71 %; Platelet Count 309 k/uL (150-450); RBC 4.98 m/uL (3.80-5.40)
[2022-02-18 01:04] LABS: ALT 32 U/L (4-34); AST 30 U/L (14-36); Acetaminophen <10.0 ug/mL; African American GFR (CKD) >90 (>60 ml/min/1.73 sqM); Alkaline Phosphatase 116 U/L (38-126); Anion Gap 14 mmol/L; Blood Urea Nitrogen 3 mg/dL (7-17); Calcium 8.3 mg/dL (8.4-10.2); Carbon Dioxide 23 mmol/L (22-30); Chloride 109 mmol/L (98-107); Glucose 89 mg/dL (74-99); Lipase 37 U/L (23-300); Non-African American GFR(CKD) >90 (>60 ml/min/1.73 sqM); Potassium 3.2 mmol/L (3.5-5.1); Salicylate <1.0 mg/dL; Sodium 146 mmol/L (137-145); Total Bilirubin 0.4 mg/dL (0.2-1.3); Total Protein 7.3 g/dL (6.3-8.2)
[2022-02-18 01:11] LABS: Alcohol 226 mg/dL
--- NOTE | 2022-02-18 03:15 | ED ---
Psych HPI - General Source: patient, EMS Mode of arrival: EMS <Verito Lin - Last Filed: 02/18/22 03:21> <Nile Hawthorne - Last Filed: 02/18/22 11:44> - General Chief Complaint: Psychiatric Symptoms Stated Complaint: Overdose Time Seen by Provider: 02/17/22 23:45 - History of Present Illness Initial Comments: 36-year-old female presents to the emergency department after a suicide attempt. She takes Latuda 400 mg. States that she was arguing with her . Throughout the course of the day she took a couple extra of her lip to do pills. Patient cannot tell me how many pills she took however states that it was only a few pills. She also admits to drinking alcohol today. States that she is a daily drinker and she supposed to start rehab tomorrow. Patient admits that she took these medications and drink as she was trying to hurt herself. Denies concern for as she is homosexual. Denies ingesting any other medications. No visual or auditory hallucinations. No other alleviating, precipitating or modifying factors (Verito Lin) - Related Data Home Medications Medication Instructions Recorded Confirmed Acetaminophen Tab [Tylenol] 650 mg PO Q6H PRN 09/06/21 09/08/21 Albuterol Sulfate [Proair Hfa] 1 - 2 puff INHALATION Q6HR PRN 09/06/21 09/08/21 oxyCODONE-APAP 10-325MG [Percocet 1 tab PO Q6HR PRN 09/06/21 09/08/21 10-325 mg] Previous Rx's Medication Instructions Recorded Acetaminophen Tab [Tylenol] 650 mg PO Q6H #30 tab 09/08/21 Docusate [Colace] 100 mg PO BID #20 capsule 09/08/21 Ibuprofen [Motrin] 600 mg PO Q6HR PRN #40 tab 09/08/21 oxyCODONE HCL [OxyIR] 5 mg PO Q6H PRN 3 Days #10 tab 09/08/21 Allergies Allergy/AdvReac Type Severity Reaction Status Date / Time doxycycline Allergy Nausea & Verified 09/08/21 06:24 Vomiting Review of Systems ROS Other: All systems not noted in ROS Statement are negative. <Verito Lin - Last Filed: 02/18/22 03:21> ROS Other: All systems not noted in ROS Statement are negative. <Nile Hawthorne - Last Filed: 02/18/22 11:44> ROS Statement: Those systems with pertinent positive or pertinent negative responses have been documented in the HPI. Past Medical History Past Medical History: Osteoarthritis (OA), Skin Disorder Additional Past Medical History / Comment(s): HIDRADENITIS SUPPURATIVE (skin condition with painfull lumps on skin )., occasional sob., lesion on neck -pt states occasional drainage. History of Any Multi-Drug Resistant Organisms: MRSA Date of last positivie culture/infection: 2016 MDRO Source:: skin wound back of neck Past Surgical History: Appendectomy Additional Past Surgical History / Comment(s): sweat glands removed,(STATES MULTIPLE SURGERIES).,skin lesion removed (12/28/20) Past Anesthesia/Blood Transfusion Reactions: No Reported Reaction Additional Past Anesthesia/Blood Transfusion Reaction / Comment(s): hx blood transfusion 2009 without reaction Past Psychological History: Anxiety, Depression Smoking Status: Current every day smoker Past Alcohol Use History: None Reported Additional Past Alcohol Use History / Comment(s): SMOKES 1/2 PPD , STARTED SMOKING AGE 18 Past Drug Use History: Marijuana Additional Drug Use History / Comment(s): . - Past Family History Mother History Unknown: Yes Additional Family Medical History / Comment(s): maternal aunts cancer Father Additional Family Medical History / Comment(s): paternal grandma, aunts cancer <Jenni Linah Laura - Last Filed: 02/18/22 03:21> General Exam Limitations: no limitations General appearance: alert, in no apparent distress, appears intoxicated Head exam: Present: atraumatic, normocephalic, normal inspection Eye exam: Present: normal appearance, PERRL, EOMI. Absent: scleral icterus, conjunctival injection, periorbital swelling ENT exam: Present: normal exam, mucous membranes moist Neck exam: Present: normal inspection. Absent: tenderness, meningismus, lymphadenopathy Respiratory exam: Present: normal lung sounds bilaterally. Absent: respiratory distress, wheezes, rales, rhonchi, stridor Cardiovascular Exam: Present: regular rate, normal rhythm, normal heart sounds. Absent: systolic murmur, diastolic murmur, rubs, gallop, clicks GI/Abdominal exam: Present: soft, normal bowel sounds. Absent: distended, tenderness, guarding, rebound, rigid Extremities exam: Present: normal inspection, full ROM, normal capillary refill. Absent: tenderness, pedal edema, joint swelling, calf tenderness Back exam: Present: normal inspection Neurological exam: Present: alert, oriented X3, CN II-XII intact Psychiatric exam: Present: depressed Skin exam: Present: warm, dry, intact, normal color. Absent: rash <Verito Lin - Last Filed: 02/18/22 03:21> Course Vital Signs 02/17/22 02/18/22 23:40 10:49 Temperature 98.0 F Pulse Rate 92 78 Respiratory 16 18 Rate Blood Pressure 104/65 110/79 O2 Sat by Pulse 98 98 Oximetry Medical Decision Making - Lab Data Result diagrams: 02/17/22 23:56 02/17/22 23:56 <Verito Lin - Last Filed: 02/18/22 03:21> - Lab Data Result diagrams: 02/17/22 23:56 02/17/22 23:56 <Nile Hawthorne - Last Filed: 02/18/22 11:44> - Medical Decision Making On arrival patient is placed into room 12. A thorough history and physical exam is performed. We did obtain an IV and laboratory studies are conducted and reviewed. Potassium mildly low at 3.2. This is replaced. Patient's alcohol is 226. We did speak with poison control. He states that from a medication ingestion standpoint that the patient will be medically clear at 2 AM. She will not be sober from alcohol until 4 AM therefore EPS must await to evaluate the patient at that time. We are currently awaiting their recommendations (Verito Lin) Patient seen by mental health services with plan for discharge. Patient reevaluated by myself. Patient denies suicidal ideation and does contract for safety. Patient does have a friend present who will help ensure her transition to rehab. Patient does plan on going there immediately. (Nile Hawthorne) - Lab Data Lab Results 02/17/22 02/17/22 Range/Units 23:56 23:56 WBC 11.0 H (3.8-10.6) k/uL RBC 4.98 (3.80-5.40) m/uL Hgb 14.1 (11.4-16.0) gm/dL Hct 43.3 (34.0-46.0) % MCV 86.9 (80.0-100.0) fL MCH 28.2 (25.0-35.0) pg MCHC 32.5 (31.0-37.0) g/dL RDW 15.0 (11.5-15.5) % Plt Count 309 (150-450) k/uL MPV 7.9 Neutrophils % 71 % Lymphocytes % 23 % Monocytes % 3 % Eosinophils % 1 % Basophils % 0 % Neutrophils # 7.8 H (1.3-7.7) k/uL Lymphocytes # 2.5 (1.0-4.8) k/uL Monocytes # 0.4 (0-1.0) k/uL Eosinophils # 0.1 (0-0.7) k/uL Basophils # 0.1 (0-0.2) k/uL Sodium 146 H (137-145) mmol/L Potassium 3.2 L (3.5-5.1) mmol/L Chloride 109 H (98-107) mmol/L Carbon Dioxide 23 (22-30) mmol/L Anion Gap 14 mmol/L BUN 3 L (7-17) mg/dL Creatinine 0.62 (0.52-1.04) mg/dL Est GFR (CKD-EPI)AfAm >90 (>60 ml/min/1.73 sqM) Est GFR (CKD-EPI)NonAf >90 (>60 ml/min/1.73 sqM) Glucose 89 (74-99) mg/dL Calcium 8.3 L (8.4-10.2) mg/dL Total Bilirubin 0.4 (0.2-1.3) mg/dL AST 30 (14-36) U/L ALT 32 (4-34) U/L Alkaline Phosphatase 116 (38-126) U/L Total Protein 7.3 (6.3-8.2) g/dL Albumin 4.0 (3.5-5.0) g/dL Lipase 37 (23-300) U/L Salicylates <1.0 mg/dL Acetaminophen <10.0 ug/mL Serum Alcohol 226 H* mg/dL - EKG Data EKG Comments: EKG demonstrates a sinus rhythm with a rate of 71. LA interval 152. QRS 91. QTC of 422. No acute ST segment elevations or depressions. Normal intervals. EKG is interpreted by myself (Verito Lin) Disposition <Verito Lin - Last Filed: 02/18/22 03:21> Is patient prescribed a controlled substance at d/c from ED?: No Time of Disposition: 11:44 <Nile Hawthorne - Last Filed: 02/18/22 11:44> Clinical Impression: Depression Disposition: HOME SELF-CARE Condition: Stable Instructions (If sedation given, give patient instructions): Depression (ED), Polysubstance Abuse (ED) Additional Instructions: Please head directly to rehab as planned. Please do follow-up with primary care physician in the next couple days for recheck. Return for thoughts of self- harm, worsening or change in symptoms or other concerns. Referrals: Richard Ribera MD [STAFF PHYSICIAN] - 1-2 days
[2022-02-18] MEDS ORDERED: POTASSIUM CHLORIDE ER 20 MEQ TAB.ER PO STA (04:04)
[2022-02-18 10:50] VITALS: BP 110/79; PULSE 78; RESP 18
== END 2022-02-18 11:51 | disposition home or self-care (01) ==
LOC: EC 23:28
DX: F32.A Depression, unspecified (principal); F41.9 Anxiety disorder, unspecified; F12.90 Cannabis use, unspecified, uncomplicated; F17.200 Nicotine dependence, unspecified, uncomplicated; Z88.1 Allergy status to other antibiotic agents
CPT/HCPCS: 82075; 36415; 93005; 80053; 83690; 85025; 80143; 80179; 99285; G0480; 80320

== ENCOUNTER 2022-12-09 09:22 | Inpatient (IN) | payer MEDICAID, OTHER ==
--- NOTE | 2022-12-09 09:59 | ED ---
General Adult HPI - General Chief complaint: Psychiatric Symptoms Stated complaint: mental health Time Seen by Provider: 12/09/22 09:44 Source: patient, RN notes reviewed, old records reviewed Mode of arrival: ambulatory Limitations: no limitations - History of Present Illness Initial comments: 37-year-old female presenting for mental health evaluation. Patient states she has been off her medication for several weeks. She was seen by [facility] yesterday and it was recommended that she present to the emergency department for evaluation. She does admit to racing thoughts and suicidal thoughts. Denies suicide attempt. - Related Data Home Medications Medication Instructions Recorded Confirmed Acetaminophen Tab [Tylenol] 650 mg PO Q6H PRN 09/06/21 09/08/21 Albuterol Sulfate [Proair Hfa] 1 - 2 puff INHALATION Q6HR PRN 09/06/21 09/08/21 oxyCODONE-APAP 10-325MG [Percocet 1 tab PO Q6HR PRN 09/06/21 09/08/21 10-325 mg] Previous Rx's Medication Instructions Recorded Acetaminophen Tab [Tylenol] 650 mg PO Q6H #30 tab 09/08/21 Docusate [Colace] 100 mg PO BID #20 capsule 09/08/21 Ibuprofen [Motrin] 600 mg PO Q6HR PRN #40 tab 09/08/21 oxyCODONE HCL [OxyIR] 5 mg PO Q6H PRN 3 Days #10 tab 09/08/21 clindamycin HCL 300 mg PO QID #40 cap 12/02/22 Allergies Allergy/AdvReac Type Severity Reaction Status Date / Time doxycycline Allergy Nausea & Verified 12/09/22 09:32 Vomiting Review of Systems ROS Statement: Those systems with pertinent positive or pertinent negative responses have been documented in the HPI. ROS Other: All systems not noted in ROS Statement are negative. Past Medical History Past Medical History: Osteoarthritis (OA), Skin Disorder Additional Past Medical History / Comment(s): HIDRADENITIS SUPPURATIVE (skin condition with painfull lumps on skin )., occasional sob., lesion on neck -pt states occasional drainage. History of Any Multi-Drug Resistant Organisms: MRSA Date of last positivie culture/infection: 2015 MDRO Source:: skin wound back of neck Past Surgical History: Appendectomy Additional Past Surgical History / Comment(s): sweat glands removed,(STATES MULTIPLE SURGERIES).,skin lesion removed (12/28/20) Past Anesthesia/Blood Transfusion Reactions: No Reported Reaction Additional Past Anesthesia/Blood Transfusion Reaction / Comment(s): hx blood transfusion 2010 without reaction Past Psychological History: Anxiety, Depression Smoking Status: Current every day smoker Past Alcohol Use History: None Reported Past Drug Use History: Marijuana - Past Family History Mother History Unknown: Yes Additional Family Medical History / Comment(s): maternal aunts cancer Father Additional Family Medical History / Comment(s): paternal grandma, aunts cancer General Exam Limitations: no limitations General appearance: alert, in no apparent distress Head exam: Present: atraumatic, normocephalic Eye exam: Present: normal appearance, PERRL Neck exam: Present: normal inspection Respiratory exam: Present: normal lung sounds bilaterally. Absent: respiratory distress, wheezes Cardiovascular Exam: Present: regular rate, normal rhythm GI/Abdominal exam: Present: soft. Absent: distended, tenderness Neurological exam: Present: alert, oriented X3, CN II-XII intact. Absent: motor sensory deficit Psychiatric exam: Present: flat affect, suicidal ideation Skin exam: Present: warm, dry, intact Course Vital Signs 12/09/22 09:30 Temperature 98.2 F Pulse Rate 77 Respiratory 20 Rate Blood Pressure 136/88 O2 Sat by Pulse 99 Oximetry - Reevaluation(s) Reevaluation #1: 12/09/22 09:58 Cleared for EPS Medical Decision Making - Medical Decision Making Was pt. sent in by a medical professional or institution (, PA, HAM ROLLING MACHINE OPERATOR, urgent care, hospital, or halfway...) When possible be specific @ -No Did you speak to anyone other than the patient for history (EMS, parent, family, police, friend...)? What history was obtained from this source @ -No Did you review nursing and triage notes (agree or disagree)? Why? @ -I reviewed and agree with nursing and triage notes Were old charts reviewed (outside hosp., previous admission, EMS record, old EKG, old radiological studies, urgent care reports/EKG's, halfway records)? Report findings @ -No old charts were reviewed Differential Diagnosis (chest pain, altered mental status, abdominal pain women, abdominal pain men, vaginal bleeding, weakness, fever, dyspnea, syncope, headache, dizziness, GI bleed, back pain, seizure, CVA, palpatations, mental health, musculoskeletal)? @ Differential Mental Health Depression, anxiety, bipolar, psychosis, schizophrenia, borderline personality, situational depression, adjustment disorder, behavioral disorder, brain tumor, malingering, substance abuse, encephalopathy, medication reaction, dementia, hypothyroidism, degenerative neurologic disorder, lupus.... This is not meant to be all-inclusive list EKG interpreted by me (3pts min.). @ -As above X-rays interpreted by me (1pt min.). @ -None done CT interpreted by me (1pt min.). @ -None done U/S interpreted by me (1pt. min.). @ -None done What testing was considered but not performed or refused? (CT, X-rays, U/S, labs)? Why? @ -None What meds were considered but not given or refused? Why? @ -None Did you discuss the management of the patient with other professionals (professionals i.e. , PA, HAM ROLLING MACHINE OPERATOR, lab, RT, psych nurse, social sciences lecturer, audit spec, teacher, labor relations officer, home health care case manager)? Give summary @ -[Case discussed with EPS nurse recommends admission Was smoking cessation discussed for >3mins.? @ -No Was critical care preformed (if so, how long)? @ -No Were there social determinants of health that impacted care today? How? (Homelessness, low income, unemployed, alcoholism, drug addiction, transportati on, low edu. Level, literacy, decrease access to med. care, longterm, rehab)? @ -No Was there de-escalation of care discussed even if they declined (Discuss DNR or withdrawal of care, Hospice)? DNR status @ -No What co-morbidities impacted this encounter? (DM, HTN, Smoking, COPD, CAD, Cancer, CVA, ARF, Chemo, Hep., AIDS, mental health diagnosis, sleep apnea, morbid obesity)? @ -None Was patient admitted / discharged? Hospital course, mention meds given and route, prescriptions, significant lab abnormalities, going to OR and other pertinent info. @ -[Patient medically cleared, will be admitted for psychiatric care Undiagnosed new problem with uncertain prognosis? @ -No Drug Therapy requiring intensive monitoring for toxicity (Heparin, Nitro, Insulin, Cardizem)? @ -No Were any procedures done? @ -No Diagnosis/symptom? @ -Suicidal ideation Acute, or Chronic, or Acute on Chronic? @ -[Acute Uncomplicated (without systemic symptoms) or Complicated (systemic symptoms)? @ -default Side effects of treatment? @ -No Exacerbation, Progression, or Severe Exacerbation? @ -No Poses a threat to life or bodily function? How? (Chest pain, USA, SD, pneumonia, PE, COPD, DKA, ARF, appy, cholecystitis, CVA, Diverticulitis, Homicidal, Suicidal, threat to staff... and all critical care pts) @ -Yes, self-harm Disposition Clinical Impression: Suicidal ideation Disposition: ADMITTED IP TO THIS HOSP Condition: Stable Is patient prescribed a controlled substance at d/c from ED?: No Referrals: Darien Garcia MD [Primary Care Provider] - 1-2 days Time of Disposition: 14:14
[2022-12-09] MEDS ORDERED: ACETAMINOPHEN TAB 325 MG TAB PO PRN (15:05)
[2022-12-09] MEDS ORDERED: MAG HYDROX/AL HYDROX/SIMETH 30 ML CUP PO PRN (15:05)
[2022-12-09] MEDS ORDERED: LORazepam 2 MG/ML INJ IM PRN (15:09)
[2022-12-09] MEDS ORDERED: HALOPERIDOL LACTATE 5 MG/ML 1 ML VIAL IM PRN (15:10)
[2022-12-09] MEDS ORDERED: haloperidoL 5 MG TAB PO PRN (15:11)
[2022-12-09] MEDS: LORazepam 1 MG TAB PO PRN (16:24)
[2022-12-09 21:21] LABS: Basophils % (A) 0 %; Eosinophils # (A) 0.1 k/uL (0-0.7); Eosinophils % (A) 1 %; HCT 44.2 % (34.0-46.0); Lymphocytes # (A) 2.5 k/uL (1.0-4.8); Lymphocytes % (A) 21 %; MCH 27.3 pg (25.0-35.0); MCHC 31.7 g/dL (31.0-37.0); Mean Platelet Volume 8.3; Monocytes # (A) 0.4 k/uL (0-1.0); Monocytes % (A) 4 %; Neutrophils # (A) 8.7 k/uL (1.3-7.7); Neutrophils % (A) 73 %; Platelet Count 372 k/uL (150-450); RBC 5.14 m/uL (3.80-5.40); RDW 15.2 % (11.5-15.5); WBC 11.9 k/uL (3.8-10.6)
[2022-12-09 21:29] LABS: ALT 67 U/L (4-34); AST 59 U/L (14-36); African American GFR (CKD) >90 (>60 ml/min/1.73 sqM); Albumin 4.4 g/dL (3.5-5.0); Alkaline Phosphatase 128 U/L (38-126); Anion Gap 10 mmol/L; Blood Urea Nitrogen 7 mg/dL (7-17); Calcium 9.6 mg/dL (8.4-10.2); Carbon Dioxide 27 mmol/L (22-30); Chloride 99 mmol/L (98-107); Glucose 102 mg/dL (74-99); Non-African American GFR(CKD) >90 (>60 ml/min/1.73 sqM); Potassium 3.4 mmol/L (3.5-5.1); Sodium 136 mmol/L (137-145); Total Bilirubin 1.3 mg/dL (0.2-1.3); Total Protein 8.4 g/dL (6.3-8.2)
[2022-12-10] MEDS: LORazepam 1 MG TAB PO PRN ×3 (00:21→18:20)
[2022-12-10] MEDS: NICOTINE 14MG/24HR PATCH TRANSDERM SCH (08:43)
--- NOTE | 2022-12-10 10:35 | P.HP ---
Psychiatric H&P - . H&P Date: 12/10/22 History & Physical: Allergies Allergy/AdvReac Type Severity Reaction Status Date / Time doxycycline AdvReac Nausea & Verified 12/09/22 14:35 Vomiting Vital Signs Temp 97.6 F 12/09/22 15:58 Pulse 76 12/09/22 15:58 Resp 18 12/09/22 15:58 BP 130/88 12/09/22 15:58 Pulse Ox 97 12/09/22 15:58 FiO2 Intake & Output 12/09/22 12/10/22 12/10/22 18:59 06:59 18:59 Weight 113.307 kg Laboratory Last Values WBC 11.9 k/uL (3.8-10.6) H 12/09/22 20:30 RBC 5.14 m/uL (3.80-5.40) 12/09/22 20:30 Hgb 14.0 gm/dL (11.4-16.0) 12/09/22 20:30 Hct 44.2 % (34.0-46.0) 12/09/22 20:30 MCV 86.0 fL (80.0-100.0) 12/09/22 20:30 MCH 27.3 pg (25.0-35.0) 12/09/22 20:30 MCHC 31.7 g/dL (31.0-37.0) 12/09/22 20:30 RDW 15.2 % (11.5-15.5) 12/09/22 20:30 Plt Count 372 k/uL (150-450) 12/09/22 20:30 MPV 8.3 12/09/22 20:30 Neutrophils % 73 % 12/09/22 20:30 Lymphocytes % 21 % 12/09/22 20:30 Monocytes % 4 % 12/09/22 20:30 Eosinophils % 1 % 12/09/22 20: Basophils % 0 % 12/09/22 20:30 Neutrophils # 8.7 k/uL (1.3-7.7) H 12/09/22 20:30 Lymphocytes # 2.5 k/uL (1.0-4.8) 12/09/22 20:30 Monocytes # 0.4 k/uL (0-1.0) 12/09/22 20: Eosinophils # 0.1 k/uL (0-0.7) 12/09/22 20:30 Basophils # 0.0 k/uL (0-0.2) 12/09/22 20:30 Sodium 136 mmol/L (137-145) L 12/09/22 20:30 Potassium 3.4 mmol/L (3.5-5.1) L 12/09/22 20:30 Chloride 99 mmol/L (98-107) 12/09/22 20:30 Carbon Dioxide 27 mmol/L (22-30) 12/09/22 20:30 Anion Gap 10 mmol/L 12/09/22 20:30 BUN 7 mg/dL (7-17) 12/09/22 20:30 Creatinine 0.68 mg/dL (0.52-1.04) 12/09/22 20:30 Est GFR (CKD-EPI)AfAm >90 (>60 ml/min/1.73 sqM) 12/09/22 20:30 Est GFR (CKD-EPI)NonAf >90 (>60 ml/min/1.73 sqM) 12/09/22 20:30 Glucose 102 mg/dL (74-99) H 12/09/22 20:[address] Glu mg/dL 105 mg/dL 12/09/22 20:30 Hemoglobin A1c 5.3 % (<=6.0) 12/09/22 20:30 Calcium 9.6 mg/dL (8.4-10.2) 12/09/22 20:30 Total Bilirubin 1.3 mg/dL (0.2-1.3) 12/09/22 20:30 AST 59 U/L (14-36) H 12/09/22 20:30 ALT 67 U/L (4-34) H 12/09/22 20:30 Alkaline Phosphatase 128 U/L (38-126) H 12/09/22 20:30 Total Protein 8.4 g/dL (6.3-8.2) H 12/09/22 20:30 Albumin 4.4 g/dL (3.5-5.0) 12/09/22 20:30 Coronavirus (PCR) Not Detected (Not Detectd) 12/09/22 14:13 12/10/22 10:27 This is a psychiatric evaluation on [facility] who is a 37-year-old female and was hospitalized after she was referred by a local mental health services Patient reports that she had stopped taking her medications 2 months ago and has started to see herself slipping down into depression She states that she was having some vague suicidal thoughts and had express her feelings to the molder bench She says that she wanted to get back on her medications but the waiting list to see the psychiatrist was more than 2 months She said that she decided to come to the hospital on the suggestion She said that she does need help and wants to get back on treatment She said that she is currently 5 for disability and lives with her Patient does not remember the medications that she was taking except for Cymbalta Past history personal and social history: Patient states that she currently lives with her and is not employed She says she is filed for disability about 3 years ago for a skin condition hidradenitis suppurativa She says that she gets painful lumps and post tools that these to be lanced and that she had 1 taken care of in the right upper axillary area few days ago She denies any substance use but states that she uses medical marijuana as needed Past Medical History Past Medical History: Osteoarthritis (OA), Skin Disorder Additional Past Medical History / Comment(s): HIDRADENITIS SUPPURATIVE (skin condition with painfull lumps on skin )., occasional sob., lesion on neck -pt states occasional drainage. History of Any Multi-Drug Resistant Organisms: MRSA Date of last positivie culture/infection: 2015 MDRO Source:: skin wound back of neck Past Surgical History: Appendectomy Additional Past Surgical History / Comment(s): sweat glands removed,(STATES MULTIPLE SURGERIES).,skin lesion removed (12/28/20) Past Anesthesia/Blood Transfusion Reactions: No Reported Reaction Additional Past Anesthesia/Blood Transfusion Reaction / Comment(s): hx blood transfusion 2009 without reaction Past Psychological History: Anxiety, Depression Smoking Status: Current every day smoker Past Alcohol Use History: None Reported Past Drug Use History: Marijuana MENTAL STATUS EXAM: General Appearance: Patient appears to be mildly overweight, stated age is alert, directable, and attempts to cooperate. Patient appears to have fair hygiene and grooming. Good eye contact. Behavior: Patient is seated without any agitated behavior. Attempts to cooperate. Speech: Patient's speech is fluent and nonpressured. Mood/Affect: Patient reports their mood is depressed and anxious, affect is congruent and constricted. Suicidality/Homicidality: Patient denies having any homicidal ideation intent or plan. She does admit to having suicidal thoughts, no intent or plan. Perceptions: Patient denies any visual hallucinations and denies any auditory hallucinations Though content/process: There is no evidence of any delusional thought content and thought process is linear and goal-directed. [place] Memory and concentration: AOX3, grossly intact for the purposes of this session. Can spell "WORLD" backwards Judgment and insight: poor STRENGTHS/WEAKNESSES: strength is that patient is resilient. Weakness is that patient has poor judgment and is impulsive INTELLECT: average IMPRESSIONS: Major depressive disorder, recurrent without psychotic features Anxiety disorder unspecified Cannabis use disorder Somatoform disorder unspecified PLAN: -Patient is admitted under voluntary status to MHU for stabilization of psychiatric symptoms and safety. Patient has signed adult voluntary form and medication consent and is placed in patient's chart. -Medications : Will start patient on Cymbalta 30 mg twice a day for mood/anxiety, Continue her home meds that includes nystatin Hydrocodone Gabapentin Fluticasone inhaler Pepcid Flexeril Clindamycin topical Albuterol inhaler when necessary Keflex 500 mg daily -Ativan Haldol and Vistaril PRN for agitation/aggression and anxiety -Patient was counselled on substance abuse and desired to cut back on use -Patient was informed of the risks, benefits and side effects of the medication and patient verbally consented to taking the medications. Patient signed med consent form and was placed in chart. -Internal Medicine consult to perform medical evaluation and physical. -NRT - as needed -SW on board for discharge planning. Encourage patient to participate in groups to work on coping skills. Damian Bruno M.D.
[2022-12-10] MEDS: CYCLOBENZAPRINE 10 MG TAB PO PRN (11:09)
[2022-12-10] MEDS: HYDROcodone/APAP 10-325MG 1 EACH TAB PO PRN ×2 (11:09→20:29)
[2022-12-10] MEDS: GABAPENTIN 400 MG CAP PO SCH ×3 (11:09→21:41)
[2022-12-10] MEDS: NYSTATIN 100,000 UNIT/ML SUSP 500,000 UNIT/5 ML CUP PO SCH ×3 (11:13→21:42)
[2022-12-10] MEDS: SYMBICORT 80-4.5 MCG INHALER (MHU) INHALATION SCH ×2 (11:35→20:28)
[2022-12-10] MEDS: ALBUTEROL HFA INHALER INHALATION SCH ×3 (11:36→20:28)
[2022-12-10] MEDS: TIOTROPIUM 2.5 MCG INHALER (MHU) INHALATION SCH (11:52)
[2022-12-10] MEDS: CLINDAMYCIN TOPICAL SCH ×2 (11:53→21:22)
[2022-12-10] MEDS: CEPHALEXIN 500 MG CAP PO SCH ×3 (14:04→21:42)
[2022-12-10] MEDS: FAMOTIDINE 20 MG TAB PO SCH (20:29)
[2022-12-10] MEDS: DULoxetine HCL 30 MG CAPSULE.DR PO SCH (20:29)
[2022-12-11] MEDS: CYCLOBENZAPRINE 10 MG TAB PO PRN (00:45)
[2022-12-11] MEDS: HYDROcodone/APAP 10-325MG 1 EACH TAB PO PRN ×3 (00:45→20:54)
[2022-12-11] MEDS: LORazepam 1 MG TAB PO PRN ×2 (01:44→20:54)
[2022-12-11] MEDS ORDERED: IPRATROPIUM 0.5 MG/2.5 ML NEBU INHALATION SCH (08:00)
[2022-12-11] MEDS: NICOTINE 14MG/24HR PATCH TRANSDERM SCH (08:22)
[2022-12-11] MEDS: ALBUTEROL HFA INHALER INHALATION SCH ×4 (08:22→20:52)
[2022-12-11] MEDS: CEPHALEXIN 500 MG CAP PO SCH ×4 (08:22→20:53)
[2022-12-11] MEDS: TIOTROPIUM 2.5 MCG INHALER (MHU) INHALATION SCH (08:22)
[2022-12-11] MEDS: DULoxetine HCL 30 MG CAPSULE.DR PO SCH ×2 (08:22→20:52)
[2022-12-11] MEDS: SYMBICORT 80-4.5 MCG INHALER (MHU) INHALATION SCH ×2 (08:22→21:23)
[2022-12-11] MEDS: GABAPENTIN 400 MG CAP PO SCH ×3 (08:22→20:51)
[2022-12-11] MEDS: NYSTATIN 100,000 UNIT/ML SUSP 500,000 UNIT/5 ML CUP PO SCH ×4 (08:23→22:02)
[2022-12-11] MEDS: CLINDAMYCIN TOPICAL SCH ×2 (08:25→21:00)
--- NOTE | 2022-12-11 09:39 | P.PN ---
Subjective Progress Note Date: 12/11/22 Principal diagnosis: IMPRESSIONS: Major depressive disorder, recurrent without psychotic features Rule out bipolar disorder mixed type Anxiety disorder unspecified Cannabis use disorder Somatoform disorder unspecified Patient Name: Annette Gupta Date of : 87 Patient Status: Inpatient Attending Provider: Surinder Thorpe Date: Subjective data: Patient reports that she remembers her medication that she was taking and that it was Latuda 40 mg daily She also states that her sleep pattern has been very erratic in which she would like to have something for insomnia Emotionally she says that she is feeling somewhat stressed but is taking 1 day at a time and that she is hopeful that things will get better She denies any suicidal ideations or plans She admits that she is feeling more hopeful since she has been hospitalized MENTAL STATUS EXAM: General Appearance: Patient appears to be mildly overweight, stated age is alert, directable, and attempts to cooperate. Patient appears to have fair hygiene and grooming. Good eye contact. Behavior: Patient is walking along with the proposal lead writer in the hallway without any agitation Attempts to cooperate. Speech: Patient's speech is fluent and nonpressured. Mood/Affect: Patient reports their mood is depressed and anxious, affect is congruent and constricted. Suicidality/Homicidality: Patient denies having any homicidal ideation intent or plan. She does admit to having suicidal thoughts, no intent or plan. Perceptions: Patient denies any visual hallucinations and denies any auditory hallucinations Though content/process: There is no evidence of any delusional thought content and thought process is linear and goal-directed. [place] Memory and concentration: AOX3, grossly intact for the purposes of this session. Can spell "WORLD" backwards Judgment and insight: poor STRENGTHS/WEAKNESSES: strength is that patient is resilient. Weakness is that patient has poor judgment and is impulsive INTELLECT: average IMPRESSIONS: Major depressive disorder, recurrent without psychotic features Anxiety disorder unspecified Cannabis use disorder Somatoform disorder unspecified PLAN: -Patient is admitted under voluntary status to MHU for stabilization of psychiatric symptoms and safety. Patient has signed adult voluntary form and medication consent and is placed in patient's chart. -Medications : Will start patient on Cymbalta 30 mg twice a day for mood/anxiety, Continue her home meds that includes nystatin Hydrocodone Gabapentin Fluticasone inhaler Pepcid Flexeril Clindamycin topical Albuterol inhaler when necessary Keflex 500 mg daily -Ativan Haldol and Vistaril PRN for agitation/aggression and anxiety We'll start the patient on Latuda 40 mg daily and trazodone 100 mg at bedtime for insomnia Discussed effects and side effects which she appears to understand well -Patient was counselled on substance abuse and desired to cut back on use -Patient was informed of the risks, benefits and side effects of the medication and patient verbally consented to taking the medications. Patient signed med consent form and was placed in chart. -Internal Medicine consult to perform medical evaluation and physical. -NRT - as needed -SW on board for discharge planning. Encourage patient to participate in groups to work on coping skills. Damian Bruno M.D. Objective - Vital Signs Vital signs: Vital Signs Temp 97.0 F L 12/11/22 07:00 Pulse 81 12/11/22 07:00 Resp 16 12/11/22 07:00 BP 111/73 12/11/22 07:00 Pulse Ox 97 12/11/22 07:00 FiO2 - Labs CBC & Chem 7: 12/09/22 20:30 12/09/22 20:30
[2022-12-11] MEDS: FAMOTIDINE 20 MG TAB PO SCH ×2 (20:51→20:52)
[2022-12-11] MEDS: traZODone HCL 100 MG TAB PO SCH (21:12)
--- NOTE | 2022-12-11 22:53 | CONS ---
CONSULTATION CHIEF COMPLAINT: Major depression. HISTORY OF PRESENT ILLNESS: Another admission for this 37-year-old -[place] female. She was not taking her medications and long back developing depression with psychosis. She also has a problem with hidradenitis suppurativa in both axillae and she just underwent drainage of one abscess in her right axilla. REVIEW OF SYSTEMS: Otherwise unremarkable. She has had no headaches, change in vision or hearing, chest pain, fever, chills, abdominal pain, nausea, vomiting, etc. PAST MEDICAL HISTORY, FAMILY HISTORY PERSONAL AND SOCIAL HISTORIES: Otherwise unchanged. PHYSICAL EXAMINATION: VITAL SIGNS: Blood pressure is 132/74 with a pulse of 79, respirations of 30, and she is afebrile. GENERAL: Appeared to be slightly overweight, in no acute distress. SKIN: Color is normal. Skin is warm and dry. HEENT: Head, ears, eyes, nose, mouth and throat were normal. CHEST: Clear. CARDIAC: Normal. ABDOMEN: Soft and nontender. EXTREMITIES: Normal. IMPRESSION: Major depression. RECOMMENDATIONS: None. MMODL / IJN: [id number] /
[2022-12-12] MEDS: NICOTINE 14MG/24HR PATCH TRANSDERM SCH (08:51)
[2022-12-12] MEDS: CEPHALEXIN 500 MG CAP PO SCH ×4 (08:54→20:34)
[2022-12-12] MEDS: CLINDAMYCIN TOPICAL SCH ×2 (08:54→20:39)
[2022-12-12] MEDS: ALBUTEROL HFA INHALER INHALATION SCH ×4 (08:54→20:39)
[2022-12-12] MEDS: DULoxetine HCL 30 MG CAPSULE.DR PO SCH ×2 (08:54→20:34)
[2022-12-12] MEDS: SYMBICORT 80-4.5 MCG INHALER (MHU) INHALATION SCH ×2 (08:55→20:38)
[2022-12-12] MEDS: NYSTATIN 100,000 UNIT/ML SUSP 500,000 UNIT/5 ML CUP PO SCH ×4 (08:56→21:21)
[2022-12-12] MEDS: HYDROcodone/APAP 10-325MG 1 EACH TAB PO PRN ×2 (08:58→20:35)
[2022-12-12] MEDS: GABAPENTIN 400 MG CAP PO SCH ×3 (08:59→20:34)
[2022-12-12] MEDS: TIOTROPIUM 2.5 MCG INHALER (MHU) INHALATION SCH (08:59)
[2022-12-12] MEDS ORDERED: LURASIDONE 40 MG TAB PO SCH ×2 (09:00→18:00)
[2022-12-12] MEDS: LORazepam 1 MG TAB PO PRN ×2 (12:19→20:37)
--- NOTE | 2022-12-12 12:52 | P.PN ---
Progress Note - Text Progress Note Date: 12/12/22 Subjective data: Patient was seen today laying in her bed and was agreeable to senior medical writer today in t he office. Patient claims that she is doing better with regards to her mood. We spoke about her medications and answered questions about her need for a mood stabilizer. Patient was agreeable to continue on with the same medications. We spoke about dosing the latuda with dinner to help with absorption. Patient states that she has been trying to go to groups and participate as best as she can. She states that she has been off her medications for several months now. States that she wants to get back into [facility]. States that her anxiety is improving mildly and depression as well. States that her sleep is also improving and nighttime. Consider appetite is fair. She is denying any suicidal or homicidal ideations intent or plan. Denying any auditory or visual hallucinations at this time. She has been taking her medications, not reporting any side effects. MENTAL STATUS EXAM: General Appearance: Patient appears to be mildly overweight, stated age is alert, directable, and attempts to cooperate. Patient appears to have fair hygiene and grooming. Good eye contact. Behavior: Patient is walking along with the senior medical writer in the hallway without any agitation. Attempts to cooperate Speech: Patient's speech is fluent and nonpressured. [place] Mood/Affect: Patient reports their mood improving mildly, affect is congruent and constricted. Suicidality/Homicidality: Patient denies having any homicidal ideation intent or plan. She does admit to having suicidal thoughts, no intent or plan. Perceptions: Patient denies any visual hallucinations and denies any auditory hallucinations Though content/process: There is no evidence of any delusional thought content and thought process is linear and goal-directed. [place] Memory and concentration: AOX3, grossly intact for the purposes of this session Judgment and insight: Improving mildly IMPRESSIONS: Bipolar disorder, current episode depressed Anxiety disorder unspecified alcohol use disorder Cannabis use disorder Nicotine dependence PLAN: -Patient is admitted under voluntary status to MHU for stabilization of psychiatric symptoms and safety. Patient has signed adult voluntary form and medication consent and is placed in patient's chart. -Medications : changed Latuda 40 mg with dinner and trazodone 100 mg at bedtime for insomnia Cymbalta 30 mg twice a day for mood/anxiety, Continue her home meds that includes nystatin Hydrocodone Gabapentin Fluticasone inhaler Pepcid Flexeril Clindamycin topical Albuterol inhaler when necessary Keflex 500 mg daily -Ativan Haldol and Vistaril PRN for agitation/aggression and anxiety -NRT - as needed -SW on board for discharge planning. Encourage patient to participate in groups to work on coping skills. likely discharge on monday back home.
[2022-12-12] MEDS: CYCLOBENZAPRINE 10 MG TAB PO PRN (17:02)
[2022-12-12] MEDS: traZODone HCL 100 MG TAB PO SCH (20:34)
[2022-12-12] MEDS: FAMOTIDINE 20 MG TAB PO SCH (20:35)
[2022-12-13 07:01] VITALS: BP 122/69; PULSE 73; RESP 16; TEMP 98.1
[2022-12-13] MEDS: ALBUTEROL HFA INHALER INHALATION SCH ×4 (08:53→20:42)
[2022-12-13] MEDS: TIOTROPIUM 2.5 MCG INHALER (MHU) INHALATION SCH (08:54)
[2022-12-13] MEDS: SYMBICORT 80-4.5 MCG INHALER (MHU) INHALATION SCH ×2 (08:54→21:03)
[2022-12-13] MEDS: NICOTINE 14MG/24HR PATCH TRANSDERM SCH (08:58)
[2022-12-13] MEDS: DULoxetine HCL 30 MG CAPSULE.DR PO SCH ×2 (08:58→20:41)
[2022-12-13] MEDS: NYSTATIN 100,000 UNIT/ML SUSP 500,000 UNIT/5 ML CUP PO SCH ×4 (08:58→20:41)
[2022-12-13] MEDS: GABAPENTIN 400 MG CAP PO SCH ×3 (08:58→20:41)
[2022-12-13] MEDS: CEPHALEXIN 500 MG CAP PO SCH ×4 (08:58→20:40)
[2022-12-13] MEDS: CYCLOBENZAPRINE 10 MG TAB PO PRN ×2 (09:00→17:34)
[2022-12-13] MEDS: HYDROcodone/APAP 10-325MG 1 EACH TAB PO PRN ×2 (09:00→20:42)
[2022-12-13] MEDS: CLINDAMYCIN TOPICAL SCH ×2 (10:01→20:46)
[2022-12-13 12:36] LABS: Appearance,Urine Clear (Clear); Bilirubin,Urine Negative (Negative); Blood,Urine Moderate (Negative); Color,Urine Colorless; Glucose,Urine (UA) Negative (Negative); Ketones,Urine Negative (Negative); Leukocyte Esterase,Urine Negative (Negative); Nitrite,Urine Negative (Negative); Protein,Urine Negative (Negative); RBC,Urine 1 /hpf (0-5); Specific Gravity,Urine 1.003 (1.001-1.035); Squamous Epithelial Cell,Urine <1 /hpf (0-4); Urobilinogen,Urine <2.0 mg/dL (<2.0); WBC,Urine <1 /hpf (0-5)
[2022-12-13 13:03] LABS: Amphetamine Screen,Urine Not Detected (NotDetected); Barbiturate Screen,Urine Not Detected (NotDetected); Benzodiazepines Screen,Urine Detected (NotDetected); Cocaine Screen,Urine Not Detected (NotDetected); Methadone Screen, Urine Not Detected (NotDetected); Opiate Screen,Urine Detected (NotDetected); Oxycodone Screen, Urine Not Detected (NotDetected); Phencyclidine Screen,Urine Not Detected (NotDetected); Tricyclic Antidepressant,Urine Not Detected (NotDetected); Urn Cannabinoid Scrn Detected (NotDetected)
--- NOTE | 2022-12-13 13:09 | P.PN ---
Progress Note - Text Progress Note Date: 12/13/22 Subjective data: Patient was seen today wandering the hallways and was agreeable to medical writer today in the office. Patient claims that she is doing a bit better today and is not in the overnight complaints. She states that she did not take the latuda last night with her dinner however we will do that today. She states that she is feeling more stable in terms of her mood. She was asking about potential discharge tomorrow. States that she is trying to go to some groups. States that she is feeling less labile and more stable. Insight and judgment have been improving. He claims that her appetite is fair at this time. States that she wants to get back into [facility]. She is denying any suicidal or homicidal ideations intent or plan. Denying any auditory or visual hallucinations at this time. She has been taking her medications, not reporting any side effects. MENTAL STATUS EXAM: General Appearance: Patient appears to be mildly overweight, stated age is alert, directable, and attempts to cooperate. Patient appears to have fair hygiene and grooming. Good eye contact. Behavior: Patient is walking along with the medical writer in the hallway without any agitation. Attempts to cooperate Speech: Patient's speech is fluent and nonpressured. [place] Mood/Affect: Patient reports their mood improving mildly, affect is congruent Suicidality/Homicidality: Patient denies having any homicidal ideation intent or plan. She denies any suicidal thoughts, no intent or plan. Perceptions: Patient denies any visual hallucinations and denies any auditory hallucinations Though content/process: There is no evidence of any delusional thought content and thought process is linear and goal-directed. [place], improving Memory and concentration: AOX3, grossly intact for the purposes of this session Judgment and insight: Improving mildly IMPRESSIONS: Bipolar disorder, current episode depressed Anxiety disorder unspecified alcohol use disorder Cannabis use disorder Nicotine dependence PLAN: -Patient is admitted under voluntary status to [facility] for stabilization of psychiatric symptoms and safety. Patient has signed adult voluntary form and medication consent and is placed in patient's chart. -Medications : Latuda 40 mg with dinner and trazodone 100 mg at bedtime for insomnia Cymbalta 30 mg twice a day for mood/anxiety, Continue her home meds that includes nystatin Hydrocodone Gabapentin Fluticasone inhaler Pepcid Flexeril Clindamycin topical Albuterol inhaler when necessary Keflex 500 mg daily -Ativan Haldol and Vistaril PRN for agitation/aggression and anxiety -NRT - as needed -SW on board for discharge planning. Encourage patient to participate in groups to work on coping skills. likely discharge tomorrow back home.
[2022-12-13] MEDS: LORazepam 1 MG TAB PO PRN (13:38)
[2022-12-13] MEDS ORDERED: INFLUENZA VACC (6 MOS-64 YRS) 60 MCG/0.5 ML SYRINGE IM ONE (14:11)
[2022-12-13 16:30] LABS: Chol/HDL Ratio 3.36 Ratio; LDL Cholesterol,Calculated 104.4 mg/dL (0.0-131.0)
[2022-12-13] MEDS ORDERED: LURASIDONE 40 MG TAB PO SCH (18:00)
[2022-12-13] MEDS: traZODone HCL 100 MG TAB PO SCH (20:40)
[2022-12-14] MEDS: NICOTINE 14MG/24HR PATCH TRANSDERM SCH (07:59)
[2022-12-14] MEDS: NYSTATIN 100,000 UNIT/ML SUSP 500,000 UNIT/5 ML CUP PO SCH ×2 (08:00→12:47)
[2022-12-14] MEDS: SYMBICORT 80-4.5 MCG INHALER (MHU) INHALATION SCH (08:02)
[2022-12-14] MEDS: ALBUTEROL HFA INHALER INHALATION SCH ×2 (08:02→12:46)
[2022-12-14] MEDS: TIOTROPIUM 2.5 MCG INHALER (MHU) INHALATION SCH (08:02)
[2022-12-14] MEDS: CEPHALEXIN 500 MG CAP PO SCH ×2 (08:02→12:46)
[2022-12-14] MEDS: DULoxetine HCL 30 MG CAPSULE.DR PO SCH (08:02)
[2022-12-14] MEDS: CLINDAMYCIN TOPICAL SCH (08:03)
[2022-12-14] MEDS: GABAPENTIN 400 MG CAP PO SCH (08:04)
[2022-12-14] MEDS: HYDROcodone/APAP 10-325MG 1 EACH TAB PO PRN (08:05)
[2022-12-14] MEDS: CYCLOBENZAPRINE 10 MG TAB PO PRN (08:05)
[2022-12-14] MEDS: LORazepam 1 MG TAB PO PRN (08:06)
[2022-12-14] MEDS ORDERED: INFLUENZA VACC (6 MOS-64 YRS) 60 MCG/0.5 ML SYRINGE IM ONE (09:00)
--- NOTE | 2022-12-14 13:08 | P.DS ---
Providers Date of admission: 12/09/22 15:02 Expected date of discharge: 12/14/22 Attending physician: Surinder Thorpe MD Consults: 12/09/22 15:05 Consult Physician Routine Consulting Provider: Darien Garcia Consult Reason/Comments: medical management Do you want consulting provider notified?: Yes Primary care physician: Darien Garcia - Discharge Diagnosis(es) (1) Bipolar disorder current episode depressed Current Visit: Yes Status: Acute Priority: High (2) Anxiety disorder Current Visit: Yes Status: Acute Priority: Medium (3) Alcohol use disorder Current Visit: Yes Status: Acute Priority: Medium (4) Cannabis use disorder Current Visit: Yes Status: Acute Priority: Medium (5) Nicotine dependence Current Visit: Yes Status: Acute Priority: Low Hospital Course: Admission HPI: Admission note was completed by Dr Bruno "This is a psychiatric evaluation on Annette Gupta who is a 37-year-old female and was hospitalized after she was referred by a local mental health services Patient reports that she had stopped taking her medications 2 months ago and has started to see herself slipping down into depression She states that she was having some vague suicidal thoughts and had express her feelings to the radiology clerk She says that she wanted to get back on her medications but the waiting list to see the psychiatrist was more than 2 months She said that she decided to come to the hospital on the suggestion She said that she does need help and wants to get back on treatment She said that she is currently 5 for disability and lives with her Patient does not remember the medications that she was taking except for Cymbalta." Hospital course: Upon admission to the unit patient was directable and agreeable to commence treatment and signed adult voluntary form . Patient got along well with other patients on the unit and followed unit protocol. Patient was compliant with the medications and denied any side effects throughout hospital course. Patient was started on latuda 40 mg with dinner for mood stabilization/depression, trazodone 100 mg qhs for insomnia/mood, Cymbalta 30 mg twice a day for mood/anxiety. Patient spoke of her stressors and engaged in therapy both group and individual. Patient was also seen by medical team for history and physical exam. Throughout the course of the hospitalization patient gradually improved with regards to mood, anxiety, mood lability, sleep and became more future oriented with improved insight and judgment. On the day of discharge patient denied any suicidal or homicidal ideations intent or plan denied any auditory or visual hallucinations. Patient endorsed wanting to live for her help in the future. The patient denied any access to guns or weapons. Patient denied any paranoia and did not endorse any delusions. Patient does have a significant history of substance abuse and was counseled on abstaining from all substances including alcohol and marijuana. Patient was offered however declined inpatient substance- abuse rehab. Patient elected to do outpatient substance use treatment program through [facility]. Patient was also counseled on the medications and need for regular compliance and was encouraged to follow-up with their outpatient appointment for mental health and also for primary care. Prior to discharge a family meeting will be arranged by medical social worker to answer any questions and ensure safety upon discharge. Mental status exam: General Appearance: Patient appears to be mildly overweight, stated age is alert, pleasant, and cooperative. Patient is in no acute distress and has improved hygiene and grooming Behavior: Patient is calmly seated without any agitated behavior. Speech: Patient's speech is fluent and nonpressured. Mood/Affect: Patient reports their mood is "good", affect is congruent and euthymic. Suicidality/Homicidality: Patient denies having any suicidal or homicidal ideation intent or plan. Perceptions: Patient denies any auditory or visual hallucinations. Though content/process: There is no evidence of any delusional thought content and thought process is linear and goal-directed. more future oriented Memory and concentration: AOX3, grossly intact for the purposes of this session. Can spell "WORLD" backwards correctly. Judgment and insight: improved with guarded prognosis Impression: Bipolar disorder current episode depressed Anxiety disorder unspecified Alcohol use disorder Cannabis use disorder Nicotine dependence Plan: -Continue with discharge today as patient has improved and stabilized psychiatrically and is not currently an imminent threat to herself and/or others. Patient will remain at chronically elevated risk for harm to self and/or others due to her impulsivity and polysubstance abuse. -Continue medications: latuda 40mg with dinner for mood stabilization/depression, trazodone 100 mg daily at bedtime for insomnia/mood, Cymbalta 30 mg twice a day for mood/anxiety. -Patient was counseled on the need for medication compliance and appropriate follow-up at mental health and also primary care for medical issues. Patient verbalized understanding and agreed. -Social work to arrange for and conduct family meeting to ensure safety upon discharge and answer any questions/concerns. Social work also to arrange for patients follow up appointments with [facility] for psychiatric care along with follow up with primary care provider. -Patient counseled on abstaining from recreational drugs and marijuana and alcohol. Was informed/educated on the adverse effects on their physical and mental health. Patient verbally agreed and understood. Patient was offered substance abuse treatment however declined at this time. -Patient was instructed to return to the hospital or seek immediate medical care if their psychiatric or medical symptoms do worsen or reoccur. Allergies Allergy/AdvReac Type Severity Reaction Status Date / Time doxycycline AdvReac Nausea & Verified 12/09/22 14:35 Vomiting Laboratory Results WBC 11.9 k/uL (3.8-10.6) H 12/09/22 20:30 RBC 5.14 m/uL (3.80-5.40) 12/09/22 20:30 Hgb 14.0 gm/dL (11.4-16.0) 12/09/22 20: Hct 44.2 % (34.0-46.0) 12/09/22 20:30 MCV 86.0 fL (80.0-100.0) 12/09/22 20: MCH 27.3 pg (25.0-35.0) 12/09/22 20:30 MCHC 31.7 g/dL (31.0-37.0) 12/09/22 20:30 RDW 15.2 % (11.5-15.5) 12/09/22 20:30 Plt Count 372 k/uL (150-450) 12/09/22 20:30 MPV 8.3 12/09/22 20:30 Neutrophils % 73 % 12/09/22 20:30 Lymphocytes % 21 % 12/09/22 20:30 Monocytes % 4 % 12/09/22 20: Eosinophils % 1 % 12/09/22 20: Basophils % 0 % 12/09/22 20:30 Neutrophils # 8.7 k/uL (1.3-7.7) H 12/09/22 20:30 Lymphocytes # 2.5 k/uL (1.0-4.8) 12/09/22 20: Monocytes # 0.4 k/uL (0-1.0) 12/09/22 20:30 Eosinophils # 0.1 k/uL (0-0.7) 12/09/22 20:30 Basophils # 0.0 k/uL (0-0.2) 12/09/22 20:30 Sodium 136 mmol/L (137-145) L 12/09/22 20:30 Potassium 3.4 mmol/L (3.5-5.1) L 12/09/22 20:30 Chloride 99 mmol/L (98-107) 12/09/22 20:30 Carbon Dioxide 27 mmol/L (22-30) 12/09/22 20:30 Anion Gap 10 mmol/L 12/09/22 20:30 BUN 7 mg/dL (7-17) 12/09/22 20:30 Creatinine 0.68 mg/dL (0.52-1.04) 12/09/22 20:30 Est GFR (CKD-EPI)AfAm >90 (>60 ml/min/1.73 sqM) 12/09/22 20:30 Est GFR (CKD-EPI)NonAf >90 (>60 ml/min/1.73 sqM) 12/09/22 20:30 Glucose 102 mg/dL (74-99) H 12/09/22 20:[address] Glu mg/dL 105 mg/dL 12/09/22 20:30 Hemoglobin A1c 5.3 % (<=6.0) 12/09/22 20:30 Calcium 9.6 mg/dL (8.4-10.2) 12/09/22 20:30 Total Bilirubin 1.3 mg/dL (0.2-1.3) 12/09/22 20:30 AST 59 U/L (14-36) H 12/09/22 20:30 ALT 67 U/L (4-34) H 12/09/22 20:30 Alkaline Phosphatase 128 U/L (38-126) H 12/09/22 20:30 Total Protein 8.4 g/dL (6.3-8.2) H 12/09/22 20:30 Albumin 4.4 g/dL (3.5-5.0) 12/09/22 20:30 Triglycerides 156.00 mg/dL (0.00-149.00) H 12/13/22 11:00 Cholesterol 193.00 mg/dL (0.00-200.00) 12/13/22 11:00 LDL Cholesterol, Calc 104.4 mg/dL (0.0-131.0) 12/13/22 11:00 VLDL Cholesterol, Calc 31.20 mg/dL (5.00-40.00) 12/13/22 11:00 HDL Cholesterol 57.40 mg/dL (40.00-60.00) 12/13/22 11:00 Cholesterol/HDL Ratio 3.36 Ratio 12/13/22 11:00 Urine Color Colorless 12/13/22 11:44 Urine Appearance Clear (Clear) 12/13/22 11:44 Urine pH 7.0 (5.0-8.0) 12/13/22 11:44 Ur Specific [place] 1.003 (1.001-1.035) 12/13/22 11:44 Urine Protein Negative (Negative) 12/13/22 11:44 Urine Glucose (UA) Negative (Negative) 12/13/22 11:44 Urine Ketones Negative (Negative) 12/13/22 11:44 Urine Blood Moderate (Negative) H 12/13/22 11:44 Urine Nitrite Negative (Negative) 12/13/22 11:44 Urine Bilirubin Negative (Negative) 12/13/22 11:44 Urine Urobilinogen <2.0 mg/dL (<2.0) 12/13/22 11:44 Ur Leukocyte Esterase Negative (Negative) 12/13/22 11:44 Urine RBC 1 /hpf (0-5) 12/13/22 11:44 Urine WBC <1 /hpf (0-5) 12/13/22 11:44 Ur Squamous Epith Cells <1 /hpf (0-4) 12/13/22 11:44 Urine HCG, Qual Not Detected (Not Detectd) 12/13/22 11:44 Urine Opiates Screen Detected (NotDetected) H 12/13/22 11:44 Ur Oxycodone Screen Not Detected (NotDetected) 12/13/22 11:44 Urine Methadone Screen Not Detected (NotDetected) 12/13/22 11:44 Ur Propoxyphene Screen Not Detected (NotDetected) 12/13/22 11:44 Ur Barbiturates Screen Not Detected (NotDetected) 12/13/22 11:44 U Tricyclic Antidepress Not Detected (NotDetected) 12/13/22 11:44 Ur Phencyclidine Scrn Not Detected (NotDetected) 12/13/22 11:44 Ur Amphetamines Screen Not Detected (NotDetected) 12/13/22 11:44 U Methamphetamines Scrn Not Detected (NotDetected) 12/13/22 11:44 U Benzodiazepines Scrn Detected (NotDetected) H 12/13/22 11:44 Urine Cocaine Screen Not Detected (NotDetected) 12/13/22 11:44 U Marijuana (THC) Screen Detected (NotDetected) H 12/13/22 11:44 Coronavirus (PCR) Not Detected (Not Detectd) 12/09/22 14:13 Vital Signs Temp 98.1 F 12/13/22 06:59 Pulse 73 12/13/22 06:59 Resp 16 12/13/22 06:59 BP 122/69 12/13/22 06:59 Pulse Ox 99 12/13/22 06:59 FiO2 Patient Condition at Discharge: Stable Plan - Discharge Summary Discharge Rx Participant: Yes New Discharge Prescriptions: New DULoxetine HCL [Cymbalta] 30 mg PO BID 30 Days #60 cap Nicotine 14Mg/24Hr Patch [Habitrol] 1 patch TRANSDERM DAILY 14 Days #14 patch Lurasidone [Latuda] 40 mg PO 1800 30 Days #30 tab LORazepam [Ativan] 1 mg PO DAILY PRN 3 Days #3 tab PRN Reason: Agitation Or Acute Anxiety traZODone HCL [Desyrel] 100 mg PO HS 30 Days #30 tab Continue Nystatin 100,000 Unit/ml Susp [Mycostatin Oral Susp] 1 ml PO QID HYDROcodone/APAP 10-325MG [[place] 10-325] 1 tab PO TID Gabapentin [Neurontin] 400 mg PO TID Cyclobenzaprine [Flexeril] 10 mg PO TID PRN PRN Reason: Muscle Spasm Clindamycin Topical Soln [Cleocin-T Topical Soln] 1 applic TOPICAL BID Fluticasone/Umeclidin/Vilanter [Trelegy Ellipta 100-62.5-25] 1 puff INHALATION RT-DAILY Famotidine [Pepcid] 40 mg PO HS Albuterol Sulfate [Ventolin HFA] 2 puff INHALATION RT-QID Cephalexin [Keflex] 500 mg PO DIRECTED Discharge Medication List Albuterol Sulfate [Ventolin HFA] 2 puff INHALATION RT-QID 12/09/22 [History] Cephalexin [Keflex] 500 mg PO DIRECTED 12/09/22 [History] Clindamycin Topical Soln [Cleocin-T Topical Soln] 1 applic TOPICAL BID 12/09/22 [History] Cyclobenzaprine [Flexeril] 10 mg PO TID PRN 12/09/22 [History] Famotidine [Pepcid] 40 mg PO HS 12/09/22 [History] Fluticasone/Umeclidin/Vilanter [Trelegy Ellipta 100-62.5-25] 1 puff INHALATION RT-DAILY 12/09/22 [History] Gabapentin [Neurontin] 400 mg PO TID 12/09/22 [History] HYDROcodone/APAP 10-325MG [[place] 10-325] 1 tab PO TID 12/09/22 [History] Nystatin 100,000 Unit/ml Susp [Mycostatin Oral Susp] 1 ml PO QID 12/09/22 [History] DULoxetine HCL [Cymbalta] 30 mg PO BID 30 Days #60 cap 12/14/22 [Rx] LORazepam [Ativan] 1 mg PO DAILY PRN 3 Days #3 tab 12/14/22 [Rx] Lurasidone [Latuda] 40 mg PO 1800 30 Days #30 tab 12/14/22 [Rx] Nicotine 14Mg/24Hr Patch [Habitrol] 1 patch TRANSDERM DAILY 14 Days #14 patch 12/14/22 [Rx] traZODone HCL [Desyrel] 100 mg PO HS 30 Days #30 tab 12/14/22 [Rx] Follow up Appointment(s)/Referral(s): [facility] [Outside] - 12/19/22 8:30 am (12/19/2022 8:30AM - 9:30AM BAND[facility] RIZO 12/21/2022 10:30AM - 12:00PM [facility] ) Darien Garcia MD [Primary Care Provider] - 1-2 days Patient Instructions/Handouts: How to Stop Smoking (DC), Depression (DC), Generalized Anxiety Disorder (GEN) Activity/Diet/Wound Care/Special Instructions: Avoid the use of street drugs and alcohol. Take all medications as prescribed. When you are in need of refills on your medications, please contact your medical provider and/or outpatient psychiatrist/provider to have this done. Please go to your scheduled outpatient appointment for aftercare treatment. If symptoms return or become worse, call the crisis line at and/or go to the nearest emergency room for evaluation. National Suicide Hotline 988. Discharge Disposition: HOME SELF-CARE
== END 2022-12-14 13:29 | disposition home or self-care (01) | DRG 753 ==
LOC: EC 09:22 → UNDOADMIN 15:02 → 3MHU 15:02
PROVIDERS: ADMIT Psychiatry & Neurology Psychiatry; ATTEND Psychiatry & Neurology Psychiatry
DX: F31.30 Bipolar disorder, current episode depressed, mild or moderate severity, unspecified (principal); F17.210 Nicotine dependence, cigarettes, uncomplicated; F10.10 Alcohol abuse, uncomplicated; F12.10 Cannabis abuse, uncomplicated; G47.00 Insomnia, unspecified; L02.411 Cutaneous abscess of right axilla; L73.2 Hidradenitis suppurativa; R45.851 Suicidal ideations; Z79.899 Other long term (current) drug therapy; T43.506A Underdosing of unspecified antipsychotics and neuroleptics, initial encounter; Z91.128 Patient's intentional underdosing of medication regimen for other reason; Z28.310 Unvaccinated for COVID-19; Z20.822 Contact with and (suspected) exposure to COVID-19; Z28.21 Immunization not carried out because of patient refusal
CPT/HCPCS: 80053; 80061; 80306; 81001; 81025; 82075; 83036; 85025; 87635; 90686; 99285

== ENCOUNTER 2023-03-09 15:55 | Inpatient (IN) | payer MEDICAID, OTHER ==
--- NOTE | 2023-03-09 16:03 | ED ---
Psych HPI - General Source: patient, EMS Mode of arrival: EMS Limitations: no limitations - History of Present Illness MD Complaint: suicidal ideation, feels depressed Onset/Timin -: month(s) Associated Psychiatric Symptoms: depression, suicidal ideation Quality: getting worse Improves With: none Worsens With: none Context: recent alcohol abuse Associated Symptoms: denies other symptoms <Gigi Holman - Last Filed: 03/09/23 15:59> <Darrel Colunga - Last Filed: 03/09/23 20:54> <Gabi Jones - Last Filed: 03/09/23 23:57> - General Stated Complaint: Suicidal - History of Present Illness Initial Comments: 37 male presents for psychiatric evaluation. Patient has been petitioned for suicidal ideation. She denies a specific plan at this time. She does admit to daily alcohol use. She states she's been feeling more depressed and her medications are not working. (Darrel Colunga) - Related Data Home Medications Medication Instructions Recorded Confirmed Albuterol Sulfate [Ventolin HFA] 1 - 2 puff INHALATION RT-QID PRN 12/09/22 03/09/23 Clindamycin Topical Soln 1 applic TOPICAL BID 12/09/22 03/09/23 [Cleocin-T Topical Soln] Cyclobenzaprine [Flexeril] 10 mg PO TID PRN 12/09/22 03/09/23 Famotidine [Pepcid] 40 mg PO HS 12/09/22 03/09/23 Fluticasone/Umeclidin/Vilanter 1 puff INHALATION RT-DAILY 12/09/22 03/09/23 [Trelegy Ellipta 100-62.5-25] Gabapentin [Neurontin] 400 mg PO TID 12/09/22 03/09/23 Albuterol Nebulized [Ventolin 2.5 mg INHALATION RT-QID PRN 03/09/23 03/09/23 Nebulized] DULoxetine HCL [Cymbalta] 60 mg PO BID 03/09/23 03/09/23 Ergocalciferol [Vitamin D2 (1250 1,250 mcg PO Q14D 03/09/23 03/09/23 Mcg = 51072 Iu)] HYDROcodone/APAP 7.5-325MG [[place] 1 tab PO TID PRN 03/09/23 03/09/23 7.5-325] LORazepam [Ativan] 0.5 mg PO DAILY PRN 03/09/23 03/09/23 Lurasidone [Latuda] 40 mg PO W/SUPPER 03/09/23 03/09/23 Nicotine Polacrilex [Nicotine Gum] 2 mg BUCCAL Q2H PRN 03/09/23 03/09/23 Omeprazole 40 mg PO DAILY 03/09/23 03/09/23 Previous Rx's Medication Instructions Recorded traZODone HCL [Desyrel] 100 mg PO HS 30 Days #30 tab 12/14/22 Allergies Allergy/AdvReac Type Severity Reaction Status Date / Time doxycycline AdvReac Nausea & Verified 03/09/23 22:47 Vomiting Review of Systems ROS Other: All systems not noted in ROS Statement are negative. Constitutional: Denies: fever, chills Respiratory: Denies: cough, dyspnea Cardiovascular: Denies: chest pain, palpitations Gastrointestinal: Denies: abdominal pain, vomiting, diarrhea Neurological: Denies: headache, weakness Psychiatric: Reports: depression, suicidal thoughts. Denies: auditory hallucinations, visual hallucinations, homicidal thoughts <Gigi Holman - Last Filed: 03/09/23 15:59> ROS Other: All systems not noted in ROS Statement are negative. <Darrel Colunga - Last Filed: 03/09/23 20:54> ROS Other: All systems not noted in ROS Statement are negative. <Gabi Jones - Last Filed: 03/09/23 23:57> ROS Statement: Those systems with pertinent positive or pertinent negative responses have been documented in the HPI. Past Medical History Past Medical History: Osteoarthritis (OA), Skin Disorder Additional Past Medical History / Comment(s): HIDRADENITIS SUPPURATIVE (skin condition with painfull lumps on skin )., occasional sob., lesion on neck -pt states occasional drainage. History of Any Multi-Drug Resistant Organisms: MRSA Date of last positivie culture/infection: 2016 MDRO Source:: skin wound back of neck Past Surgical History: Appendectomy Additional Past Surgical History / Comment(s): sweat glands removed,(STATES MULTIPLE SURGERIES).,skin lesion removed (12/28/20) Past Anesthesia/Blood Transfusion Reactions: No Reported Reaction Additional Past Anesthesia/Blood Transfusion Reaction / Comment(s): hx blood transfusion 2010 without reaction Past Psychological History: Anxiety, Depression Smoking Status: Current every day smoker, Vaper Past Alcohol Use History: None Reported Additional Past Alcohol Use History / Comment(s): SMOKES 1/2 PPD , STARTED SMOKING AGE 18 Past Drug Use History: Marijuana Additional Drug Use History / Comment(s): . - Past Family History Mother History Unknown: Yes Additional Family Medical History / Comment(s): maternal aunts cancer Father Additional Family Medical History / Comment(s): paternal grandma, aunts cancer <MandaGigi - Last Filed: 03/09/23 15:59> General Exam General appearance: alert, in no apparent distress Head exam: Present: atraumatic, normocephalic Eye exam: Present: normal appearance. Absent: scleral icterus, conjunctival injection Neck exam: Present: normal inspection Respiratory exam: Present: normal lung sounds bilaterally. Absent: respiratory distress, wheezes, rales, rhonchi, stridor, accessory muscle use Cardiovascular Exam: Present: regular rate, normal rhythm, normal heart sounds. Absent: systolic murmur, diastolic murmur, rubs, gallop GI/Abdominal exam: Present: soft. Absent: distended, tenderness, guarding, rebound, rigid, mass Back exam: Present: normal inspection. Absent: CVA tenderness (R), CVA tenderness (L) Neurological exam: Present: alert Psychiatric exam: Present: depressed, suicidal ideation. Absent: anxious, flat affect, manic, homicidal ideation Skin exam: Present: warm, dry, intact, normal color. Absent: rash <Gigi Holman - Last Filed: 03/09/23 15:59> ENT exam: Present: normal exam <Darrel Colunga - Last Filed: 03/09/23 20:54> Course <Darrel Colunga - Last Filed: 03/09/23 20:54> Vital Signs 03/09/23 18:50 Temperature 97.7 F Pulse Rate 120 H Respiratory 22 Rate Blood Pressure 129/87 O2 Sat by Pulse 99 Oximetry - Reevaluation(s) Reevaluation #1: 03/09/23 19:54 Patient cleared for EPS (Darrel Colunga) Medical Decision Making - Lab Data Result diagrams: 03/09/23 19:57 03/09/23 19:57 <Darrel Colunga N - Last Filed: 03/09/23 20:54> - Lab Data Result diagrams: 03/09/23 19:57 03/09/23 19:57 <Gabi Jones P - Last Filed: 03/09/23 23:57> - Medical Decision Making Was pt. sent in by a medical professional or institution (, PA, INTERNATIONAL OPERATIONS MANAGER, urgent care, hospital, or [facility]...) When possible be specific @ -No Did you speak to anyone other than the patient for history (EMS, parent, family, police, friend...)? What history was obtained from this source @ -No Did you review nursing and triage notes (agree or disagree)? Why? @ -I reviewed and agree with nursing and triage notes Were old charts reviewed (outside hosp., previous admission, EMS record, old EKG, old radiological studies, urgent care reports/EKG's, [facility] records)? Report findings @ -No old charts were reviewed Differential Diagnosis (chest pain, altered mental status, abdominal pain women, abdominal pain men, vaginal bleeding, weakness, fever, dyspnea, syncope, headache, dizziness, GI bleed, back pain, seizure, CVA, palpatations, mental health, musculoskeletal)? @ -Differential Mental Health Depression, anxiety, bipolar, psychosis, schizophrenia, borderline personality, situational depression, adjustment disorder, behavioral disorder, brain tumor, malingering, substance abuse, encephalopathy, medication reaction, dementia, hypothyroidism, degenerative neurologic disorder, lupus.... This is not meant to be all-inclusive list EKG interpreted by me (3pts min.). @ -As above X-rays interpreted by me (1pt min.). @ -None done CT interpreted by me (1pt min.). @ -None done U/S interpreted by me (1pt. min.). @ -None done What testing was considered but not performed or refused? (CT, X-rays, U/S, labs)? Why? @ -None What meds were considered but not given or refused? Why? @ -None Did you discuss the management of the patient with other professionals (professionals i.e. , PA, INTERNATIONAL OPERATIONS MANAGER, lab, RT, psych nurse, social services technician, 8th grade mathematics teacher, teacher, emergency communications officer, case maker)? Give summary @ -No Was smoking cessation discussed for >3mins.? @ -No Was critical care preformed (if so, how long)? @ -No Were there social determinants of health that impacted care today? How? (Homelessness, low income, unemployed, alcoholism, drug addiction, transportation, low edu. Level, literacy, decrease access to med. care, nursing home, rehab)? @ -No Was there de-escalation of care discussed even if they declined (Discuss DNR or withdrawal of care, Hospice)? DNR status @ -No What co-morbidities impacted this encounter? (DM, HTN, Smoking, COPD, CAD, Cancer, CVA, ARF, Chemo, Hep., AIDS, mental health diagnosis, sleep apnea, morbid obesity)? @ -None Was patient admitted / discharged? Hospital course, mention meds given and route, prescriptions, significant lab abnormalities, going to OR and other pertinent info. @PT care is signed out to Dr. Jones awaiting EPS evaluation. (Darrel Colunga) @ -hospital course Transfer to inpatient psychiatric care @ -No Drug Therapy requiring intensive monitoring for toxicity (Heparin, Nitro, Insulin, Cardizem)? @ -No Were any procedures done? @ -No Diagnosis/symptom? @ -Major Depression Acute, or Chronic, or Acute on Chronic? @ -Acute on Chronic Uncomplicated (without systemic symptoms) or Complicated (systemic symptoms)? @ -default Side effects of treatment? @ -No Exacerbation, Progression, or Severe Exacerbation? @ -No Poses a threat to life or bodily function? How? (Chest pain, USA, MT, pneumonia, PE, COPD, DKA, ARF, appy, cholecystitis, CVA, Diverticulitis, Homicidal, Suicidal, threat to staff... and all critical care pts) @ -Yes (Gabi Jones) - Lab Data Lab Results 03/09/23 03/09/23 03/09/23 Range/Units 19:57 19:57 19:57 WBC 14.6 H (3.8-10.6) k/uL RBC 5.31 (3.80-5.40) m/uL Hgb 14.7 (11.4-16.0) gm/dL Hct 45.2 (34.0-46.0) % MCV 85.1 (80.0-100.0) fL MCH 27.7 (25.0-35.0) pg MCHC 32.6 (31.0-37.0) g/dL RDW 15.0 (11.5-15.5) % Plt Count 367 (150-450) k/uL MPV 7.5 Neutrophils % 77 % Lymphocytes % 19 % Monocytes % 2 % Eosinophils % 1 % Basophils % 1 % Neutrophils # 11.2 H (1.3-7.7) k/uL Lymphocytes # 2.8 (1.0-4.8) k/uL Monocytes # 0.3 (0-1.0) k/uL Eosinophils # 0.2 (0-0.7) k/uL Basophils # 0.1 (0-0.2) k/uL Sodium (137-145) mmol/L Potassium (3.5-5.1) mmol/L Chloride (98-107) mmol/L Carbon Dioxide (22-30) mmol/L Anion Gap mmol/L BUN (7-17) mg/dL Creatinine (0.52-1.04) mg/dL Est GFR (CKD-EPI)AfAm (>60 ml/min/1.73 sqM) Est GFR (CKD-EPI)NonAf (>60 ml/min/1.73 sqM) Glucose (74-99) mg/dL Calcium (8.4-10.2) mg/dL Magnesium (1.6-2.3) mg/dL Total Bilirubin (0.2-1.3) mg/dL AST (14-36) U/L ALT (4-34) U/L Alkaline Phosphatase (38-126) U/L Total Protein (6.3-8.2) g/dL Albumin (3.5-5.0) g/dL Urine Color Urine Appearance (Clear) Urine pH (5.0-8.0) Ur Specific [place] (1.001-1.035) Urine Protein (Negative) Urine Glucose (UA) (Negative) Urine Ketones (Negative) Urine Blood (Negative) Urine Nitrite (Negative) Urine Bilirubin (Negative) Urine Urobilinogen (<2.0) mg/dL Ur Leukocyte Esterase (Negative) Urine RBC (0-5) /hpf Urine WBC (0-5) /hpf Ur Squamous Epith Cells (0-4) /hpf Hyaline Casts (0-2) /lpf Urine Mucus (None) /hpf Urine HCG, Qual Not Detected (Not Detectd) Urine Opiates Screen Not Detected (NotDetected) Ur Oxycodone Screen Not Detected (NotDetected) Urine Methadone Screen Not Detected (NotDetected) Ur Barbiturates Screen Not Detected (NotDetected) U Tricyclic Antidepress Not Detected (NotDetected) Ur Phencyclidine Scrn Not Detected (NotDetected) Ur Amphetamines Screen Not Detected (NotDetected) U Methamphetamines Scrn Not Detected (NotDetected) U Benzodiazepines Scrn Detected H (NotDetected) Urine Cocaine Screen Not Detected (NotDetected) U Marijuana (THC) Screen Detected H (NotDetected) Serum Alcohol mg/dL 03/09/23 03/09/23 Range/Units 19:57 21:50 WBC (3.8-10.6) k/uL RBC (3.80-5.40) m/uL Hgb (11.4-16.0) gm/dL Hct (34.0-46.0) % MCV (80.0-100.0) fL MCH (25.0-35.0) pg MCHC (31.0-37.0) g/dL RDW (11.5-15.5) % Plt Count (150-450) k/uL MPV Neutrophils % % Lymphocytes % % Monocytes % % Eosinophils % % Basophils % % Neutrophils # (1.3-7.7) k/uL Lymphocytes # (1.0-4.8) k/uL Monocytes # (0-1.0) k/uL Eosinophils # (0-0.7) k/uL Basophils # (0-0.2) k/uL Sodium 138 (137-145) mmol/L Potassium 3.3 L (3.5-5.1) mmol/L Chloride 98 (98-107) mmol/L Carbon Dioxide 22 (22-30) mmol/L Anion Gap 18 mmol/L BUN 8 (7-17) mg/dL Creatinine 0.56 (0.52-1.04) mg/dL Est GFR (CKD-EPI)AfAm >90 (>60 ml/min/1.73 sqM) Est GFR (CKD-EPI)NonAf >90 (>60 ml/min/1.73 sqM) Glucose 107 H (74-99) mg/dL Calcium 9.4 (8.4-10.2) mg/dL Magnesium 1.6 (1.6-2.3) mg/dL Total Bilirubin 0.9 (0.2-1.3) mg/dL AST 49 H (14-36) U/L ALT 50 H (4-34) U/L Alkaline Phosphatase 134 H (38-126) U/L Total Protein 9.0 H (6.3-8.2) g/dL Albumin 5.0 (3.5-5.0) g/dL Urine Color Yellow Urine Appearance Cloudy H (Clear) Urine pH 6.0 (5.0-8.0) Ur Specific [place] 1.035 (1.001-1.035) Urine Protein 1+ H (Negative) Urine Glucose (UA) Negative (Negative) Urine Ketones Trace H (Negative) Urine Blood Large H (Negative) Urine Nitrite Negative (Negative) Urine Bilirubin Negative (Negative) Urine Urobilinogen 8.0 (<2.0) mg/dL Ur Leukocyte Esterase Negative (Negative) Urine RBC 175 H (0-5) /hpf Urine WBC 12 H (0-5) /hpf Ur Squamous Epith Cells 11 H (0-4) /hpf Hyaline Casts 3 H (0-2) /lpf Urine Mucus Many H (None) /hpf Urine HCG, Qual (Not Detectd) Urine Opiates Screen (NotDetected) Ur Oxycodone Screen (NotDetected) Urine Methadone Screen (NotDetected) Ur Barbiturates Screen (NotDetected) U Tricyclic Antidepress (NotDetected) Ur Phencyclidine Scrn (NotDetected) Ur Amphetamines Screen (NotDetected) U Methamphetamines Scrn (NotDetected) U Benzodiazepines Scrn (NotDetected) Urine Cocaine Screen (NotDetected) U Marijuana (THC) Screen (NotDetected) Serum Alcohol 24 mg/dL Disposition <Gigi Holman - Last Filed: 03/09/23 15:59> <Darrel Colunga - Last Filed: 03/09/23 20:54> Is patient prescribed a controlled substance at d/c from ED?: No <Gabi Jones - Last Filed: 03/09/23 23:57> Clinical Impression: Depression, Alcohol use disorder, Nicotine dependence, Suicidal ideation Disposition: TRANSFER TO PSYCH HOSP/UNIT Condition: Serious Referrals: Darien Garcia MD [Primary Care Provider] - 1-2 days
[2023-03-09] MEDS ORDERED: ONDANSETRON 4 MG/2 ML VIAL IVP STA (20:22)
[2023-03-09 20:23] LABS: Basophils # (A) 0.1 k/uL (0-0.2); Basophils % (A) 1 %; Eosinophils # (A) 0.2 k/uL (0-0.7); Eosinophils % (A) 1 %; HCT 45.2 % (34.0-46.0); HGB 14.7 gm/dL (11.4-16.0); Lymphocytes # (A) 2.8 k/uL (1.0-4.8); Lymphocytes % (A) 19 %; MCH 27.7 pg (25.0-35.0); MCHC 32.6 g/dL (31.0-37.0); MCV 85.1 fL (80.0-100.0); Mean Platelet Volume 7.5; Monocytes # (A) 0.3 k/uL (0-1.0); Monocytes % (A) 2 %; Neutrophils # (A) 11.2 k/uL (1.3-7.7); Neutrophils % (A) 77 %; Platelet Count 367 k/uL (150-450); RBC 5.31 m/uL (3.80-5.40); WBC 14.6 k/uL (3.8-10.6)
[2023-03-09 20:33] LABS: ALT 50 U/L (4-34); AST 49 U/L (14-36); African American GFR (CKD) >90 (>60 ml/min/1.73 sqM); Alcohol 24 mg/dL; Alkaline Phosphatase 134 U/L (38-126); Anion Gap 18 mmol/L; Blood Urea Nitrogen 8 mg/dL (7-17); Calcium 9.4 mg/dL (8.4-10.2); Carbon Dioxide 22 mmol/L (22-30); Chloride 98 mmol/L (98-107); Glucose 107 mg/dL (74-99); Magnesium 1.6 mg/dL (1.6-2.3); Non-African American GFR(CKD) >90 (>60 ml/min/1.73 sqM); Potassium 3.3 mmol/L (3.5-5.1); Sodium 138 mmol/L (137-145); Total Bilirubin 0.9 mg/dL (0.2-1.3)
[2023-03-09 20:38] LABS: Amphetamine Screen,Urine Not Detected (NotDetected); Barbiturate Screen,Urine Not Detected (NotDetected); Benzodiazepines Screen,Urine Detected (NotDetected); Cocaine Screen,Urine Not Detected (NotDetected); Methadone Screen, Urine Not Detected (NotDetected); Opiate Screen,Urine Not Detected (NotDetected); Oxycodone Screen, Urine Not Detected (NotDetected); Phencyclidine Screen,Urine Not Detected (NotDetected); Tricyclic Antidepressant,Urine Not Detected (NotDetected); Urn Cannabinoid Scrn Detected (NotDetected)
[2023-03-09] MEDS ORDERED: POTASSIUM CHLORIDE ER 20 MEQ TAB.ER PO STA (21:33)
[2023-03-09 22:32] LABS: Appearance,Urine Cloudy (Clear); Bilirubin,Urine Negative (Negative); Blood,Urine Large (Negative); Color,Urine Yellow; Glucose,Urine (UA) Negative (Negative); Hyaline Casts,Urine 3 /lpf (0-2); Ketones,Urine Trace (Negative); Leukocyte Esterase,Urine Negative (Negative); Mucus,Urine Many /hpf; Nitrite,Urine Negative (Negative); Protein,Urine 1+ (Negative); RBC,Urine 175 /hpf (0-5); Specific Gravity,Urine 1.035 (1.001-1.035); Squamous Epithelial Cell,Urine 11 /hpf (0-4); WBC,Urine 12 /hpf (0-5)
[2023-03-10] MEDS ORDERED: MAGNESIUM HYDROXIDE 2,400 MG/30 ML CUP PO PRN (00:47)
[2023-03-10] MEDS ORDERED: HALOPERIDOL LACTATE 5 MG/ML 1 ML VIAL IM PRN (00:47)
[2023-03-10] MEDS ORDERED: ACETAMINOPHEN TAB 325 MG TAB PO PRN (00:47)
[2023-03-10] MEDS ORDERED: LORazepam 1 MG TAB PO PRN ×3 (00:47→15:08)
[2023-03-10] MEDS ORDERED: IBUPROFEN 600 MG TAB PO PRN (00:47)
[2023-03-10] MEDS ORDERED: MAG HYDROX/AL HYDROX/SIMETH 30 ML CUP PO PRN (00:47)
[2023-03-10] MEDS ORDERED: ALBUTEROL INHALER 60 PUFF/8 GM INHALER (MHU) INHALATION PRN (00:51)
[2023-03-10] MEDS: LORazepam 1 MG TAB PO PRN ×2 (01:29→13:23)
[2023-03-10] MEDS: FOLIC ACID 1 MG TAB PO SCH (09:08)
[2023-03-10] MEDS: PANTOPRAZOLE 40 MG TABLET PO SCH (09:08)
[2023-03-10] MEDS: THIAMINE 100 MG TAB PO SCH (09:08)
[2023-03-10] MEDS: MULTIVITAMINS, THERA 1 EACH TAB PO SCH (09:08)
[2023-03-10] MEDS: NICOTINE 14MG/24HR PATCH TRANSDERM SCH ×2 (09:08→09:16)
[2023-03-10] MEDS: GABAPENTIN 400 MG CAP PO SCH ×3 (09:08→21:30)
[2023-03-10] MEDS: DULoxetine HCL 60 MG CAPSULE.DR PO SCH ×2 (09:09→21:30)
--- NOTE | 2023-03-10 11:23 | P.HP ---
Psychiatric H&P - . H&P Date: 03/10/23 History & Physical: Allergies Allergy/AdvReac Type Severity Reaction Status Date / Time doxycycline AdvReac Nausea & Verified 03/09/23 22:47 Vomiting Vital Signs Temp 97.6 F 03/10/23 08:00 Pulse 97 03/10/23 08:00 Resp 16 03/10/23 08:00 BP 111/63 03/10/23 08:00 Pulse Ox 96 03/10/23 01:55 FiO2 Intake & Output 03/09/23 03/10/23 03/10/23 18:59 06:59 18:59 Weight 108.862 kg 108.607 kg Laboratory Last Values WBC 14.6 k/uL (3.8-10.6) H 03/09/23 19:57 RBC 5.31 m/uL (3.80-5.40) 03/09/23 19:57 Hgb 14.7 gm/dL (11.4-16.0) 03/09/23 19:57 Hct 45.2 % (34.0-46.0) 03/09/23 19:57 MCV 85.1 fL (80.0-100.0) 03/09/23 19:57 MCH 27.7 pg (25.0-35.0) 03/09/23 19:57 MCHC 32.6 g/dL (31.0-37.0) 03/09/23 19:57 RDW 15.0 % (11.5-15.5) 03/09/23 19:57 Plt Count 367 k/uL (150-450) 03/09/23 19:57 MPV 7.5 03/09/23 19:57 Neutrophils % 77 % 03/09/23 19:57 Lymphocytes % 19 % 03/09/23 19:57 Monocytes % 2 % 03/09/23 19:57 Eosinophils % 1 % 03/09/23 19:57 Basophils % 1 % 03/09/23 19:57 Neutrophils # 11.2 k/uL (1.3-7.7) H 03/09/23 19:57 Lymphocytes # 2.8 k/uL (1.0-4.8) 03/09/23 19:57 Monocytes # 0.3 k/uL (0-1.0) 03/09/23 19:57 Eosinophils # 0.2 k/uL (0-0.7) 03/09/23 19:57 Basophils # 0.1 k/uL (0-0.2) 03/09/23 19:57 Sodium 138 mmol/L (137-145) 03/09/23 19:57 Potassium 3.3 mmol/L (3.5-5.1) L 03/09/23 19:57 Chloride 98 mmol/L (98-107) 03/09/23 19:57 Carbon Dioxide 22 mmol/L (22-30) 03/09/23 19:57 Anion Gap 18 mmol/L 03/09/23 19:57 BUN 8 mg/dL (7-17) 03/09/23 19:57 Creatinine 0.56 mg/dL (0.52-1.04) 03/09/23 19:57 Est GFR (CKD-EPI)AfAm >90 (>60 ml/min/1.73 sqM) 03/09/23 19:57 Est GFR (CKD-EPI)NonAf >90 (>60 ml/min/1.73 sqM) 03/09/23 19:57 Glucose 107 mg/dL (74-99) H 03/09/23 19:57 Calcium 9.4 mg/dL (8.4-10.2) 03/09/23 19:57 Magnesium 1.6 mg/dL (1.6-2.3) 03/09/23 19:57 Total Bilirubin 0.9 mg/dL (0.2-1.3) 03/09/23 19:57 AST 49 U/L (14-36) H 03/09/23 19:57 ALT 50 U/L (4-34) H 03/09/23 19:57 Alkaline Phosphatase 134 U/L (38-126) H 03/09/23 19:57 Total Protein 9.0 g/dL (6.3-8.2) H 03/09/23 19:57 Albumin 5.0 g/dL (3.5-5.0) 03/09/23 19:57 Urine Color Yellow 03/09/23 21:50 Urine Appearance Cloudy (Clear) H 03/09/23 21:50 Urine pH 6.0 (5.0-8.0) 03/09/23 21:50 Ur Specific [place] 1.035 (1.001-1.035) 03/09/23 21:50 Urine Protein 1+ (Negative) H 03/09/23 21:50 Urine Glucose (UA) Negative (Negative) 03/09/23 21:50 Urine Ketones Trace (Negative) H 03/09/23 21:50 Urine Blood Large (Negative) H 03/09/23 21:50 Urine Nitrite Negative (Negative) 03/09/23 21:50 Urine Bilirubin Negative (Negative) 03/09/23 21:50 Urine Urobilinogen 8.0 mg/dL (<2.0) 03/09/23 21:50 Ur Leukocyte Esterase Negative (Negative) 03/09/23 21:50 Urine RBC 175 /hpf (0-5) H 03/09/23 21:50 Urine WBC 12 /hpf (0-5) H 03/09/23 21:50 Ur Squamous Epith Cells 11 /hpf (0-4) H 03/09/23 21:50 Hyaline Casts 3 /lpf (0-2) H 03/09/23 21:50 Urine Mucus Many /hpf (None) H 03/09/23 21:50 Urine HCG, Qual Not Detected (Not Detectd) 03/09/23 19:57 Urine Opiates Screen Not Detected (NotDetected) 03/09/23 19:57 Ur Oxycodone Screen Not Detected (NotDetected) 03/09/23 19:57 Urine Methadone Screen Not Detected (NotDetected) 03/09/23 19:57 Ur Barbiturates Screen Not Detected (NotDetected) 03/09/23 19:57 U Tricyclic Antidepress Not Detected (NotDetected) 03/09/23 19:57 Ur Phencyclidine Scrn Not Detected (NotDetected) 03/09/23 19:57 Ur Amphetamines Screen Not Detected (NotDetected) 03/09/23 19:57 U Methamphetamines Scrn Not Detected (NotDetected) 03/09/23 19:57 U Benzodiazepines Scrn Detected (NotDetected) H 03/09/23 19:57 Urine Cocaine Screen Not Detected (NotDetected) 03/09/23 19:57 U Marijuana (THC) Screen Detected (NotDetected) H 03/09/23 19:57 Serum Alcohol 24 mg/dL 03/09/23 19:57 SARS-CoV-2 (PCR) Not Detected (Not Detectd) 03/09/23 23:56 03/10/23 11:01 This is a psychiatric evaluation on Annette Gupta who is a 37-year-old female and was been previously hospitalized last time being in December of this year Patient reports that she was having problems in her current relationship with her girlfriend She says that she also was dealing with severe overcrowding at home with her girlfriends son and his girlfriend also live with them She denies going to any specific but states that they've been having interpersonal conflicts for a while and that it has built up quite a bit Patient stated that she had a similar issue with her previous girlfriend also several years ago Patient reports that she uses cannabis on a daily basis She also reports that she takes about fifth of vodka every day Patient also has been diagnosed with the hidradenitis suppurative and states that she is trying to get on disability She reports no previous suicide attempts but states that she has had thoughts She currently was hospitalized with suicidal thoughts and severe feelings of helplessness and hopelessness and worsening of her depression Patient also blames that her medications were not working She currently is on Cymbalta 60 mg twice a day and Latuda 40 mg daily Patient also takes trazodone 100 mg at bedtime for insomnia Patient reports feelings of helplessness hopelessness lack of energy and lack of motivation and severe anxiety and depression Notes reviewed from [facility] mental health services report that the patient identifies numerous stressors where she had redetermination for Medicaid and that she would lose her insurance on the of this month due to her making too much money for her to qualify She also reports chronic issues with her skin condition and boils She is also concerned about not being able to afford her medications without insurance Due to the interpersonal conflicts she also feels that her may leave her and that she will have nowhere to live Past history is on social history: Annette's whole family lives in [place] and sometimes she feels that her life would be better if she could move back home Patient was last hospitalized on this unit and discharged on 12/14/2022 patient is unemployed and has a hearing for disability on 01/16/2024? Also admits using cannabis daily She also admits taking fifth of vodka on a daily basis Mental status examination: General Appearance: Patient appears to be stated age is alert, directable, she is cooperative Patient appears in poor hygiene Patient has half of her head shaved off Behavior: Patient is laying in bed and partially set up for this conversation Speech: Patient's speech is fluent and nonpressured. Soft tone. Monotone speech Mood/Affect: Patient reports their mood is depressed affect is restricted Suicidality/Homicidality: Patient denies having any homicidal ideation intent or plan. Meds vague suicidal ideations intent and no plan at this time Perceptions: Patient denies any visual hallucinations and denies any auditory hallucinations Though content/process: There is no evidence of any delusional thoughts content and thought process is linear and goal-directed. Memory and concentration: AOX3, grossly intact for the purposes of this session Judgment and insight: Poor and poor Diagnostic impression: Major depressive disorder chronic recurrent with acute exacerbation without psychotic features Adjustment disorder with mixed emotional features Alcohol use disorder unspecified Cannabis use disorder unspecified Relationship problems Plan: The patient will be hospitalized on the unit for further evaluation and treatment Therapy will be focused on providing supportive care Improving her coping abilities with a multimodal treatment sHe should also participate in OT RT PT and pharmacotherapy Approximately length of stay would be 5-12 days Medications: 1 The patient Cymbalta is already at the maximum dose of 60 mg twice a day and will be continued 2 will increase the Latuda to 60 mg daily Discussed effects and side effects Patient was briefed about her alcohol contributing to her depression and that staying abstinent from alcohol itself will have a very good antidepressive value in addition 3 Continue gabapentin 400 mg 3 times a day and vitamin B12 and folic acid, thiamine supplements Patient also remains on CIWA protocol to monitor for withdrawal symptoms and is also on Haldol and lorazepam when necessary for agitation and anxiety and withdrawal symptoms Continue Supportive care new client banking services clerk regarding gathering further collateral information from the family as well as discharge planning Maintain supportive care and safety precautions including every 15 minute checks Encouraged patient to participate in on the villarreal activities and milieu treatment Damian Bruno M.D.
[2023-03-10] MEDS: HYDROcodone/APAP 7.5-325MG 1 EACH TAB PO PRN ×2 (13:23→21:50)
[2023-03-10] MEDS ORDERED: VENTOLIN INHALATION PRN (14:15)
[2023-03-10] MEDS: NICOTINE GUM (POLACRILEX) 2 MG GUM BUCCAL PRN (15:08)
[2023-03-10] MEDS: LURASIDONE 40 MG TAB PO SCH (17:50)
[2023-03-10] MEDS: traZODone HCL 100 MG TAB PO SCH (21:30)
[2023-03-10] MEDS: FAMOTIDINE 20 MG TAB PO SCH (21:30)
[2023-03-10] MEDS: ETODOLAC 400 MG TAB PO SCH (21:51)
[2023-03-10] MEDS: CLINDAMYCIN TOPICAL SCH (21:51)
[2023-03-10] MEDS: LORazepam 1 MG TAB PO SCH (22:18)
[2023-03-11] MEDS: NALTREXONE HCL 50 MG TAB PO SCH (08:02)
[2023-03-11] MEDS: CLINDAMYCIN TOPICAL SCH ×2 (08:06→21:42)
[2023-03-11] MEDS: PANTOPRAZOLE 40 MG TABLET PO SCH (08:08)
[2023-03-11] MEDS: DULoxetine HCL 60 MG CAPSULE.DR PO SCH ×2 (08:10→21:15)
[2023-03-11] MEDS: LURASIDONE 60 MG TAB PO SCH (08:10)
[2023-03-11] MEDS: ETODOLAC 400 MG TAB PO SCH (08:10)
[2023-03-11] MEDS: LORazepam 1 MG TAB PO SCH ×2 (08:11→21:15)
[2023-03-11] MEDS: FOLIC ACID 1 MG TAB PO SCH (08:11)
[2023-03-11] MEDS: MULTIVITAMINS, THERA 1 EACH TAB PO SCH (08:11)
[2023-03-11] MEDS: GABAPENTIN 400 MG CAP PO SCH ×3 (08:11→21:15)
[2023-03-11] MEDS: THIAMINE 100 MG TAB PO SCH (08:12)
[2023-03-11] MEDS: HYDROcodone/APAP 7.5-325MG 1 EACH TAB PO PRN ×2 (08:12→16:30)
[2023-03-11 09:01] LABS: African American GFR (CKD) >90 (>60 ml/min/1.73 sqM); Anion Gap 12 mmol/L; Blood Urea Nitrogen 9 mg/dL (7-17); Calcium 9.4 mg/dL (8.4-10.2); Carbon Dioxide 29 mmol/L (22-30); Chloride 97 mmol/L (98-107); Glucose 93 mg/dL (74-99); Non-African American GFR(CKD) >90 (>60 ml/min/1.73 sqM); Sodium 138 mmol/L (137-145)
[2023-03-11] MEDS: SYMBICORT 80-4.5 MCG INHALER INHALATION SCH ×2 (09:10→21:15)
[2023-03-11] MEDS: IPRATROPIUM 0.5 MG/2.5 ML NEBU INHALATION SCH ×2 (10:21→17:28)
[2023-03-11] MEDS: NICOTINE GUM (POLACRILEX) 2 MG GUM BUCCAL PRN ×3 (15:09→21:49)
[2023-03-11] MEDS: haloperidoL 5 MG TAB PO PRN (16:30)
[2023-03-11] MEDS: TIOTROPIUM 2.5 MCG INHALER (MHU) INHALATION SCH (17:18)
[2023-03-11] MEDS: LURASIDONE 40 MG TAB PO SCH (17:45)
[2023-03-11] MEDS: traZODone HCL 100 MG TAB PO SCH (21:15)
[2023-03-11] MEDS: FAMOTIDINE 20 MG TAB PO SCH (21:15)
[2023-03-12] MEDS: DULoxetine HCL 60 MG CAPSULE.DR PO SCH ×2 (08:03→21:33)
[2023-03-12] MEDS: LORazepam 1 MG TAB PO SCH (08:03)
[2023-03-12] MEDS: GABAPENTIN 400 MG CAP PO SCH ×3 (08:03→21:33)
[2023-03-12] MEDS: MULTIVITAMINS, THERA 1 EACH TAB PO SCH (08:03)
[2023-03-12] MEDS: THIAMINE 100 MG TAB PO SCH (08:03)
[2023-03-12] MEDS: PANTOPRAZOLE 40 MG TABLET PO SCH (08:03)
[2023-03-12] MEDS: FOLIC ACID 1 MG TAB PO SCH (08:03)
[2023-03-12] MEDS: HYDROcodone/APAP 7.5-325MG 1 EACH TAB PO PRN ×2 (08:04→16:49)
[2023-03-12] MEDS: SYMBICORT 80-4.5 MCG INHALER INHALATION SCH ×2 (08:10→22:41)
[2023-03-12] MEDS: LURASIDONE 60 MG TAB PO SCH (08:10)
[2023-03-12] MEDS: ETODOLAC 400 MG TAB PO SCH (08:10)
[2023-03-12] MEDS: TIOTROPIUM 2.5 MCG INHALER (MHU) INHALATION SCH (08:11)
[2023-03-12] MEDS: NALTREXONE HCL 50 MG TAB PO SCH (08:11)
[2023-03-12] MEDS: NICOTINE GUM (POLACRILEX) 2 MG GUM BUCCAL PRN ×2 (09:08→23:03)
[2023-03-12] MEDS: CLINDAMYCIN TOPICAL SCH ×2 (10:24→22:41)
[2023-03-12] MEDS: haloperidoL 5 MG TAB PO PRN (11:25)
[2023-03-12] MEDS: LURASIDONE 40 MG TAB PO SCH (16:54)
--- NOTE | 2023-03-12 17:36 | P.PN ---
Progress Note - Text Progress Note Date: 03/11/23 Interval history: Patient was seen wandering the hallways and was directable and agreeable to speak with ad writer. Patient reports feeling "better", reports alcohol withdrawal symptoms are controlled currently, denies shaking or tremors. She reports good sleep. At this time patient denies any suicidal or homicidal ideation, intent or plan. Denies any auditory or visual hallucinations. Patient denies any side effects from the medications and has been compliant with meds. Mental status exam: General Appearance: Patient appears to be stated age, obese female dressed in male clothing, buzzed hairstyle in pony tail. . Behavior: No agitated behavior. Patient is calm and directable. Speech: Patient's speech is fluent and non-pressured. Mood/Affect: Mood is improving mildly, affect is congruent and constricted. Suicidality/Homicidality: Patient denies having any suicidal or homicidal ideation intent or plan. Perceptions: Patient denies any auditory or visual hallucinations. Though content/process: There is no evidence of any delusional thought content and thought process is linear and goal-directed. Focused on discharge. Memory and concentration: AOX3, grossly intact for the purposes of this session Judgment and insight: Improving mildly Assessment/Plan: Continue with current diagnosis. Patient continues to meet criteria for inpatient psychiatric admission for symptom stabilization and safety. Patient will be maintained on current psychotropic medication regimen. Monitor for medication compliance and for any psychotropic medication side effects. Will continue to monitor ongoing response to treatment. Encouraged participation in milieu.
--- NOTE | 2023-03-12 17:40 | P.PN ---
Progress Note - Text Progress Note Date: 03/12/23 Interval history: Patient was seen talking on the patient phone to her support person and was directable and agreeable to speak with technical writer and editor. Patient reports feeling calm, reports alcohol withdrawal symptoms are controlled currently, denies shaking or tremors. She reports good sleep. Again, she voices for her desire for discharge home. At this time patient denies any suicidal or homicidal ideation, intent or plan. Denies any auditory or visual hallucinations. Patient denies any side effects from the medications and has been compliant with meds. Vitals reviewed and are normal. Discussed discontinuing her scheduled Ativan and she agrees. Mental status exam: General Appearance: Patient appears to be stated age, obese female dressed in male clothing, buzzed hairstyle in pony tail. Behavior: No agitated behavior. Patient is calm and directable. Speech: Patient's speech is fluent and non-pressured. Mood/Affect: Mood is improving mildly, affect is congruent and constricted. Suicidality/Homicidality: Patient denies having any suicidal or homicidal ideation intent or plan. Perceptions: Patient denies any auditory or visual hallucinations. Though content/process: There is no evidence of any delusional thought content and thought process is linear and goal-directed. Focused on discharge. Memory and concentration: AOX3, grossly intact for the purposes of this session Judgment and insight: Improving mildly Assessment/Plan: Continue with current diagnosis. Patient continues to meet criteria for inpatient psychiatric admission for symptom stabilization and safety. Discontinue Ativan 2 mg BID scheduled for alcohol withdrawal. Continue PRN Ativan per [facility] protocol. Start Ativan 0.5 mg daily PRN for anxiety. Continue other meds as currently prescribed. Monitor for medication compliance and for any psychotropic medication side effects. Will continue to monitor ongoing response to treatment. Encouraged participation in milieu.
[2023-03-12] MEDS: FAMOTIDINE 20 MG TAB PO SCH (21:33)
[2023-03-12] MEDS: traZODone HCL 100 MG TAB PO SCH (22:42)
[2023-03-13] MEDS: SYMBICORT 80-4.5 MCG INHALER INHALATION SCH ×2 (08:11→20:42)
[2023-03-13] MEDS: TIOTROPIUM 2.5 MCG INHALER (MHU) INHALATION SCH (08:11)
[2023-03-13] MEDS: THIAMINE 100 MG TAB PO SCH (08:12)
[2023-03-13] MEDS: DULoxetine HCL 60 MG CAPSULE.DR PO SCH ×2 (08:12→20:39)
[2023-03-13] MEDS: FOLIC ACID 1 MG TAB PO SCH (08:12)
[2023-03-13] MEDS: PANTOPRAZOLE 40 MG TABLET PO SCH (08:12)
[2023-03-13] MEDS: GABAPENTIN 400 MG CAP PO SCH ×3 (08:12→20:39)
[2023-03-13] MEDS: LURASIDONE 60 MG TAB PO SCH (08:12)
[2023-03-13] MEDS: MULTIVITAMINS, THERA 1 EACH TAB PO SCH (08:13)
[2023-03-13] MEDS: HYDROcodone/APAP 7.5-325MG 1 EACH TAB PO PRN ×2 (08:14→16:01)
[2023-03-13] MEDS: NICOTINE GUM (POLACRILEX) 2 MG GUM BUCCAL PRN ×2 (08:36→14:53)
[2023-03-13] MEDS: ETODOLAC 400 MG TAB PO SCH (08:37)
[2023-03-13] MEDS: CLINDAMYCIN TOPICAL SCH ×2 (08:37→22:30)
[2023-03-13] MEDS: NALTREXONE HCL 50 MG TAB PO SCH (08:37)
--- NOTE | 2023-03-13 11:17 | P.PN ---
Progress Note - Text Progress Note Date: 03/13/23 Interval history: Patient was seen in the hallway, and was directable and agreeable to speak with automobile service writer. Patient reports feeling better, reports alcohol withdrawal symptoms are controlled currently, denies shaking or tremors. She reports good sleep, and good appetite. Again, she voices for her desire for discharge home and states that she has "things to take care of". Spoke with patient about rehab at discharge, patient refusing at this time, however, said she might consider it at some point. At this time patient denies any suicidal or homicidal ideation, intent or plan. Denies any auditory or visual hallucinations. Patient denies any side effects from the medications and has been compliant with meds. Vitals reviewed and are normal. Mental status exam: General Appearance: Patient appears to be stated age, obese female dressed in street clothing, buzzed hairstyle in pony tail. Behavior: No agitated behavior. Patient is calm and directable. Speech: Patient's speech is fluent and non-pressured. Mood/Affect: Mood is improving, affect is congruent and constricted. Suicidality/Homicidality: Patient denies having any suicidal or homicidal ideation intent or plan. Perceptions: Patient denies any auditory or visual hallucinations. Though content/process: There is no evidence of any delusional thought content and thought process is linear and goal-directed. Focused on discharge. Memory and concentration: AOX3, grossly intact for the purposes of this session Judgment and insight: Improving Diagnostic impression: Major depressive disorder chronic recurrent with acute exacerbation without psychotic features Adjustment disorder with mixed emotional features Alcohol use disorder Cannabis use disorder Assessment/Plan: Continue with current diagnosis. Patient continues to meet criteria for inpatient psychiatric admission for symptom stabilization and safety. Cymbalta 60mg bid for mood/anxiety. Latuda 40mg + 60 mg daily for mood stabilization Add visteral 50mg [id number] as needed for anxiety. continue naltrexone 50 mg daily for etoh cravings. D/C CIWA -NRT - nicotine gum Will continue to monitor ongoing response to treatment. Encouraged participation in milieu. Patient will consider rehab, but is refusing at this time. Will consider d/c tomorrow, if patient continues to improve
[2023-03-13] MEDS: hydrOXYzine pamoate 25 MG CAP PO PRN (14:52)
[2023-03-13] MEDS: LURASIDONE 40 MG TAB PO SCH (18:15)
[2023-03-13] MEDS: FAMOTIDINE 20 MG TAB PO SCH (20:39)
[2023-03-13] MEDS: traZODone HCL 100 MG TAB PO SCH (20:40)
[2023-03-14 07:25] VITALS: RESP 15; TEMP 97.6
[2023-03-14] MEDS: TIOTROPIUM 2.5 MCG INHALER (MHU) INHALATION SCH (08:30)
[2023-03-14] MEDS: ETODOLAC 400 MG TAB PO SCH (08:30)
[2023-03-14] MEDS: PANTOPRAZOLE 40 MG TABLET PO SCH (08:30)
[2023-03-14] MEDS: LURASIDONE 60 MG TAB PO SCH (08:30)
[2023-03-14] MEDS: SYMBICORT 80-4.5 MCG INHALER INHALATION SCH (08:30)
[2023-03-14] MEDS: MULTIVITAMINS, THERA 1 EACH TAB PO SCH (08:30)
[2023-03-14] MEDS: FOLIC ACID 1 MG TAB PO SCH (08:31)
[2023-03-14] MEDS: THIAMINE 100 MG TAB PO SCH (08:31)
[2023-03-14] MEDS: GABAPENTIN 400 MG CAP PO SCH (08:31)
[2023-03-14] MEDS: DULoxetine HCL 60 MG CAPSULE.DR PO SCH (08:31)
[2023-03-14] MEDS: HYDROcodone/APAP 7.5-325MG 1 EACH TAB PO PRN (08:32)
[2023-03-14 08:37] VITALS: BP 137/74; PULSE 82
[2023-03-14] MEDS: CLINDAMYCIN TOPICAL SCH (08:40)
[2023-03-14] MEDS: NICOTINE GUM (POLACRILEX) 2 MG GUM BUCCAL PRN (09:54)
--- NOTE | 2023-03-14 10:28 | P.DS ---
Providers Date of admission: 03/10/23 00:45 Expected date of discharge: 03/14/23 Attending physician: Surinder Thorpe MD Consults: 03/10/23 00:47 Consult Physician Routine Consulting Provider: Darien Garcia Consult Reason/Comments: medical H&P Do you want consulting provider notified?: Yes, Notify in am Primary care physician: Darien Garcia - Discharge Diagnosis(es) (1) Major depressive disorder without psychotic features Current Visit: Yes Status: Acute Priority: High (2) Adjustment disorder with mixed emotional features Current Visit: Yes Status: Acute Priority: Medium (3) Alcohol use disorder Current Visit: Yes Status: Acute Priority: High (4) Cannabis use disorder Current Visit: Yes Status: Acute Priority: Medium (5) Nicotine dependence Current Visit: Yes Status: Acute Priority: Low Hospital Course: Admission HPI: Admission note was completed by Dr. Bruno "This is a psychiatric evaluation on Annette Gupta who is a 37-year-old female and was been previously hospitalized last time being in December of this year Patient reports that she was having problems in her current relationship with her girlfriend She says that she also was dealing with severe overcrowding at home with her girlfriends son and his girlfriend also live with them She denies going to any specific but states that they've been having interpersonal conflicts for a while and that it has built up quite a bit Patient stated that she had a similar issue with her previous girlfriend also se veral years ago Patient reports that she uses cannabis on a daily basis She also reports that she takes about fifth of vodka every day Patient also has been diagnosed with the hidradenitis suppurative and states that she is trying to get on disability She reports no previous suicide attempts but states that she has had thoughts She currently was hospitalized with suicidal thoughts and severe feelings of helplessness and hopelessness and worsening of her depression Patient also blames that her medications were not working She currently is on Cymbalta 60 mg twice a day and Latuda 40 mg daily Patient also takes trazodone 100 mg at bedtime for insomnia Patient reports feelings of helplessness hopelessness lack of energy and lack of motivation and severe anxiety and depression Notes reviewed from [facility] health services report that the patient identifies numerous stressors where she had redetermination for Medicaid and that she would lose her insurance on the 31st of this month due to her making too much money for her to qualify She also reports chronic issues with her skin condition and boils She is also concerned about not being able to afford her medications without insurance Due to the interpersonal conflicts she also feels that her may leave her and that she will have nowhere to live" Hospital course: Upon admission to the unit patient was directable and agreeable to commence treatment and signed adult voluntary form. Patient got along well with other patients on the unit and followed unit protocol. Patient was compliant with the medications and denied any side effects throughout hospital course. Patient was started on Cymbalta 60 mg twice a day for mood/anxiety, latuda 40 mg daily + 60 mg with dinner for mood stabilization/mood adjunct, Vistaril when necessary for anxiety. Naltrexone was discontinued due to patient being on opiate pain medications. Patient was agreeable to be started on acamprosate instead. Patient spoke of her stressors and engaged in therapy both group and individual. Patient was also seen by medical team for history and physical exam. Throughout the course of the hospitalization patient gradually improved with regards to mood, anxiety, sleep and returned back to their baseline level of functioning. On the day of discharge patient denied any suicidal or homicidal ideations intent or plan denied any auditory or visual hallucinations. Patient endorsed wanting to live for her health and her family. The patient denied any access to guns or weapons. Patient denied any paranoia and did not endorse any delusions. Patient does have a significant history of substance abuse and was counseled on abstaining from all substances including alcohol and marijuana. Patient was offered however declined inpatient substance-abuse rehab. Patient elected to do outpatient substance use treatment program through [facility]. Patient states that she will think about going to rehab and took the resources and information. Patient was also counseled on the medications and need for regular compliance and was encouraged to follow-up with their outpatient appointment for mental health and also for primary care. Prior to discharge a family meeting will be arranged by health and social care teacher to answer any questions and ensure safety upon discharge. Mental status exam: General Appearance: Patient appears to be mildly overweight, short hair, several tattoos, stated age is alert, pleasant, and cooperative. Patient is in no acute distress and has improved hygiene and grooming Behavior: Patient is calmly seated without any agitated behavior. Speech: Patient's speech is fluent and nonpressured. Mood/Affect: Patient reports their mood is "better", affect is congruent and euthymic. Suicidality/Homicidality: Patient denies having any suicidal or homicidal ideation intent or plan. Perceptions: Patient denies any auditory or visual hallucinations. Though content/process: There is no evidence of any delusional thought content and thought process is linear and goal-directed. more future oriented Memory and concentration: AOX3, grossly intact for the purposes of this session. Can spell "WORLD" backwards correctly. Judgment and insight: chronically poor/superficial, however has improved with guarded prognosis Impression: Major depressive disorder without psychotic features Adjustment disorder with mixed emotional features Alcohol use disorder Cannabis use disorder nicotine dependence Plan: -Continue with discharge today as patient has improved and stabilized psychiatrically and is not currently an imminent threat to herself and/or others. Patient will remain at chronically elevated risk for harm to self and/or others due to her impulsivity and ysubstance abuse. -Continue medications: Cymbalta 60 mg twice a day for mood/anxiety, latuda 40 mg daily + 60 mg with dinner for mood stabilization/mood adjunct, Vistaril when necessary for anxiety, acamprosate 333 mg 3 times a day for alcohol cravings. -Patient was counseled on the need for medication compliance and appropriate follow-up at mental health and also primary care for medical issues. Patient verbalized understanding and agreed. -Social work to arrange for and conduct family meeting to ensure safety upon discharge and answer any questions/concerns. Social work also to arrange for patients follow up appointments for psychiatric care along with follow up with primary care provider. -Patient counseled on abstaining from recreational drugs and marijuana and alcohol. Was informed/educated on the adverse effects on their physical and mental health. Patient verbally agreed and understood. Patient was offered substance abuse treatment however declined at this time and will think about it once she is discharged. she will be given rehab information and number. -Patient was instructed to return to the hospital or seek immediate medical care if their psychiatric or medical symptoms do worsen or reoccur. Allergies Allergy/AdvReac Type Severity Reaction Status Date / Time doxycycline AdvReac Nausea & Verified 03/09/23 22:47 Vomiting Laboratory Results WBC 14.6 k/uL (3.8-10.6) H 03/09/23 19:57 RBC 5.31 m/uL (3.80-5.40) 03/09/23 19:57 Hgb 14.7 gm/dL (11.4-16.0) 03/09/23 19:57 Hct 45.2 % (34.0-46.0) 03/09/23 19:57 MCV 85.1 fL (80.0-100.0) 03/09/23 19:57 MCH 27.7 pg (25.0-35.0) 03/09/23 19:57 MCHC 32.6 g/dL (31.0-37.0) 03/09/23 19:57 RDW 15.0 % (11.5-15.5) 03/09/23 19:57 Plt Count 367 k/uL (150-450) 03/09/23 19:57 MPV 7.5 03/09/23 19:57 Neutrophils % 77 % 03/09/23 19:57 Lymphocytes % 19 % 03/09/23 19:57 Monocytes % 2 % 03/09/23 19:57 Eosinophils % 1 % 03/09/23 19:57 Basophils % 1 % 03/09/23 19:57 Neutrophils # 11.2 k/uL (1.3-7.7) H 03/09/23 19:57 Lymphocytes # 2.8 k/uL (1.0-4.8) 03/09/23 19:57 Monocytes # 0.3 k/uL (0-1.0) 03/09/23 19:57 Eosinophils # 0.2 k/uL (0-0.7) 03/09/23 19:57 Basophils # 0.1 k/uL (0-0.2) 03/09/23 19:57 Sodium 138 mmol/L (137-145) 03/11/23 07:51 Potassium 4.0 mmol/L (3.5-5.1) 03/11/23 07:51 Chloride 97 mmol/L (98-107) L 03/11/23 07:51 Carbon Dioxide 29 mmol/L (22-30) 03/11/23 07:51 Anion Gap 12 mmol/L 03/11/23 07:51 BUN 9 mg/dL (7-17) 03/11/23 07:51 Creatinine 0.63 mg/dL (0.52-1.04) 03/11/23 07:51 Est GFR (CKD-EPI)AfAm >90 (>60 ml/min/1.73 sqM) 03/11/23 07:51 Est GFR (CKD-EPI)NonAf >90 (>60 ml/min/1.73 sqM) 03/11/23 07:51 Glucose 93 mg/dL (74-99) 03/11/23 07:[address] Glu mg/dL 108 mg/dL 03/11/23 07:51 Hemoglobin A1c 5.4 % (<=6.0) 03/11/23 07:51 Calcium 9.4 mg/dL (8.4-10.2) 03/11/23 07:51 Magnesium 1.6 mg/dL (1.6-2.3) 03/09/23 19:57 Total Bilirubin 0.9 mg/dL (0.2-1.3) 03/09/23 19:57 AST 49 U/L (14-36) H 03/09/23 19:57 ALT 50 U/L (4-34) H 03/09/23 19:57 Alkaline Phosphatase 134 U/L (38-126) H 03/09/23 19:57 Total Protein 9.0 g/dL (6.3-8.2) H 03/09/23 19:57 Albumin 5.0 g/dL (3.5-5.0) 03/09/23 19:57 TSH 1.420 mIU/L (0.465-4.680) 03/11/23 07:51 Urine Color Yellow 03/09/23 21:50 Urine Appearance Cloudy (Clear) H 03/09/23 21:50 Urine pH 6.0 (5.0-8.0) 03/09/23 21:50 Ur Specific [place] 1.035 (1.001-1.035) 03/09/23 21:50 Urine Protein 1+ (Negative) H 03/09/23 21:50 Urine Glucose (UA) Negative (Negative) 03/09/23 21:50 Urine Ketones Trace (Negative) H 03/09/23 21:50 Urine Blood Large (Negative) H 03/09/23 21:50 Urine Nitrite Negative (Negative) 03/09/23 21:50 Urine Bilirubin Negative (Negative) 03/09/23 21:50 Urine Urobilinogen 8.0 mg/dL (<2.0) 03/09/23 21:50 Ur Leukocyte Esterase Negative (Negative) 03/09/23 21:50 Urine RBC 175 /hpf (0-5) H 03/09/23 21:50 Urine WBC 12 /hpf (0-5) H 03/09/23 21:50 Ur Squamous Epith Cells 11 /hpf (0-4) H 03/09/23 21:50 Hyaline Casts 3 /lpf (0-2) H 03/09/23 21:50 Urine Mucus Many /hpf (None) H 03/09/23 21:50 Urine HCG, Qual Not Detected (Not Detectd) 03/09/23 19:57 Urine Opiates Screen Not Detected (NotDetected) 03/09/23 19:57 Ur Oxycodone Screen Not Detected (NotDetected) 03/09/23 19:57 Urine Methadone Screen Not Detected (NotDetected) 03/09/23 19:57 Ur Barbiturates Screen Not Detected (NotDetected) 03/09/23 19:57 U Tricyclic Antidepress Not Detected (NotDetected) 03/09/23 19:57 Ur Phencyclidine Scrn Not Detected (NotDetected) 03/09/23 19:57 Ur Amphetamines Screen Not Detected (NotDetected) 03/09/23 19:57 U Methamphetamines Scrn Not Detected (NotDetected) 03/09/23 19:57 U Benzodiazepines Scrn Detected (NotDetected) H 03/09/23 19:57 Urine Cocaine Screen Not Detected (NotDetected) 03/09/23 19:57 U Marijuana (THC) Screen Detected (NotDetected) H 03/09/23 19:57 Serum Alcohol 24 mg/dL 03/09/23 19:57 SARS-CoV-2 (PCR) Not Detected (Not Detectd) 03/13/23 18:06 Vital Signs Temp 97.6 F 03/14/23 07:05 Pulse 82 03/14/23 08:33 Resp 15 03/14/23 07:05 BP 137/74 03/14/23 08:33 Pulse Ox 94 L 03/13/23 06:42 FiO2 Patient Condition at Discharge: Stable Plan - Discharge Summary Discharge Rx Participant: Yes New Discharge Prescriptions: New hydrOXYzine pamoate [Vistaril] 50 mg PO Q8HR PRN 14 Days #84 cap PRN Reason: Anxiety Acamprosate Calcium [Campral] 333 mg PO TID 30 Days #90 tab Lurasidone [Latuda] 60 mg PO DAILY 30 Days #30 tab Continue Gabapentin [Neurontin] 400 mg PO TID Cyclobenzaprine [Flexeril] 10 mg PO TID PRN PRN Reason: Muscle Spasm Clindamycin Topical Soln [Cleocin-T Topical Soln] 1 applic TOPICAL BID HYDROcodone/APAP 7.5-325MG [[place] 7.5-325] 1 tab PO TID PRN PRN Reason: Pain Ergocalciferol [Vitamin D2 (1250 Mcg = 29395 Iu)] 1,250 mcg PO Q14D traZODone HCL [Desyrel] 100 mg PO HS 30 Days #30 tab Fluticasone/Umeclidin/Vilanter [Trelegy Ellipta 100-62.5-25] 1 puff INHALATION RT-DAILY Albuterol Sulfate [Ventolin HFA] 1 - 2 puff INHALATION RT-QID PRN PRN Reason: Shortness Of Breath Albuterol Nebulized [Ventolin Nebulized] 2.5 mg INHALATION RT-QID PRN PRN Reason: Shortness Of Breath DULoxetine HCL [Cymbalta] 60 mg PO BID 30 Days #60 cap Nicotine Polacrilex [Nicotine Gum] 2 mg BUCCAL Q2H PRN 30 Days #180 pieceofgum PRN Reason: Nicotine Cravings Omeprazole 40 mg PO DAILY 30 Days #30 cap Famotidine [Pepcid] 40 mg PO HS 30 Days #30 tab Changed Lurasidone [Latuda] 40 mg PO W/SUPPER 30 Days #30 tab Discontinued LORazepam [Ativan] 0.5 mg PO DAILY PRN PRN Reason: Anxiety Discharge Medication List Albuterol Sulfate [Ventolin HFA] 1 - 2 puff INHALATION RT-QID PRN 12/09/22 [History] Clindamycin Topical Soln [Cleocin-T Topical Soln] 1 applic TOPICAL BID 12/09/22 [History] Cyclobenzaprine [Flexeril] 10 mg PO TID PRN 12/09/22 [History] Fluticasone/Umeclidin/Vilanter [Trelegy Ellipta 100-62.5-25] 1 puff INHALATION RT-DAILY 12/09/22 [History] Gabapentin [Neurontin] 400 mg PO TID 12/09/22 [History] Albuterol Nebulized [Ventolin Nebulized] 2.5 mg INHALATION RT-QID PRN 03/09/23 [History] Ergocalciferol [Vitamin D2 (1250 Mcg = 65425 Iu)] 1,250 mcg PO Q14D 03/09/23 [History] HYDROcodone/APAP 7.5-325MG [[place] 7.5-325] 1 tab PO TID PRN 03/09/23 [History] Acamprosate Calcium [Campral] 333 mg PO TID 30 Days #90 tab 03/14/23 [Rx] DULoxetine HCL [Cymbalta] 60 mg PO BID 30 Days #60 cap 03/14/23 [Rx] Famotidine [Pepcid] 40 mg PO HS 30 Days #30 tab 03/14/23 [Rx] Lurasidone [Latuda] 40 mg PO W/SUPPER 30 Days #30 tab 03/14/23 [Rx] Lurasidone [Latuda] 60 mg PO DAILY 30 Days #30 tab 03/14/23 [Rx] Nicotine Polacrilex [Nicotine Gum] 2 mg BUCCAL Q2H PRN 30 Days #180 pieceofgum 03/14/23 [Rx] Omeprazole 40 mg PO DAILY 30 Days #30 cap 03/14/23 [Rx] hydrOXYzine pamoate [Vistaril] 50 mg PO Q8HR PRN 14 Days #84 cap 03/14/23 [Rx] traZODone HCL [Desyrel] 100 mg PO HS 30 Days #30 tab 03/14/23 [Rx] Follow up Appointment(s)/Referral(s): Darien Garcia MD [Primary Care Provider] - 1-2 days Patient Instructions/Handouts: How to Stop Smoking (DC), Depression (DC) Activity/Diet/Wound Care/Special Instructions: Avoid the use of street drugs and alcohol. Take all medications as prescribed. When you are in need of refills on your medications, please contact your medical provider and/or outpatient psychiatrist/provider to have this done. Please go to your scheduled outpatient appointment for aftercare treatment. If symptoms return or become worse, call the crisis line at and/or go to the nearest emergency room for evaluation. National Suicide Hotline 988. Discharge/Stand Alone Forms: AA Meetings [place] Discharge Disposition: HOME SELF-CARE
[2023-03-14] MEDS: hydrOXYzine pamoate 25 MG CAP PO PRN (12:04)
== END 2023-03-14 12:56 | disposition home or self-care (01) | DRG 754 ==
LOC: EC 15:55 → 3MHU 03-10 00:45
PROVIDERS: ADMIT Psychiatry & Neurology Psychiatry; ATTEND Psychiatry & Neurology Psychiatry
DX: F32.9 Major depressive disorder, single episode, unspecified (principal); F43.23 Adjustment disorder with mixed anxiety and depressed mood; F10.239 Alcohol dependence with withdrawal, unspecified; F12.90 Cannabis use, unspecified, uncomplicated; F17.200 Nicotine dependence, unspecified, uncomplicated; L02.92 Furuncle, unspecified; L73.2 Hidradenitis suppurativa; R45.851 Suicidal ideations; Z79.899 Other long term (current) drug therapy; Z11.52 Encounter for screening for COVID-19
CPT/HCPCS: 36415; 80048; 80053; 80306; 80320; 81001; 81025; 83036; 83735; 84443; 85025; 87635; 96374; 99285

== ENCOUNTER 2023-06-18 15:39 | Emergency (ER) | payer OTHER ==
[2023-06-18 16:08] VITALS: TEMP 97.4
--- NOTE | 2023-06-18 16:29 | ED ---
Extremity Problem HPI - General Chief complaint: Extremity Problem,Nontraumatic Stated complaint: Pain and swelling in both legs Time Seen by Provider: 06/18/23 16:13 Source: patient Mode of arrival: ambulatory Limitations: no limitations - History of Present Illness Initial comments: 37-year-old female presenting with chief complaint of lower extremity swelling. Patient has had bilateral lower leg edema for the last 3 days. She states that her legs are sore. She has no history of CHF, renal disease, or hepatic disease. She states that she is having some difficulty breathing. No chest pain. No fever, chills, cough, congestion, sore throat. No abdominal pain, nausea, vomiting. - Related Data Home Medications Medication Instructions Recorded Confirmed Albuterol Sulfate [Ventolin HFA] 1 - 2 puff INHALATION RT-QID PRN 12/09/22 03/09/23 Clindamycin Topical Soln 1 applic TOPICAL BID 12/09/22 03/09/23 [Cleocin-T Topical Soln] Cyclobenzaprine [Flexeril] 10 mg PO TID PRN 12/09/22 03/09/23 Fluticasone/Umeclidin/Vilanter 1 puff INHALATION RT-DAILY 12/09/22 03/09/23 [Trelegy Ellipta 100-62.5-25] Gabapentin [Neurontin] 400 mg PO TID 12/09/22 03/09/23 Albuterol Nebulized [Ventolin 2.5 mg INHALATION RT-QID PRN 03/09/23 03/09/23 Nebulized] Ergocalciferol [Vitamin D2 (1250 1,250 mcg PO Q14D 03/09/23 03/09/23 Mcg = [id number] Iu)] HYDROcodone/APAP 7.5-325MG [Bennett 1 tab PO TID PRN 03/09/23 03/09/23 7.5-325] Previous Rx's Medication Instructions Recorded Acamprosate Calcium [Campral] 333 mg PO TID 30 Days #90 tab 03/14/23 DULoxetine HCL [Cymbalta] 60 mg PO BID 30 Days #60 cap 03/14/23 Famotidine [Pepcid] 40 mg PO HS 30 Days #30 tab 03/14/23 Lurasidone [Latuda] 40 mg PO W/SUPPER 30 Days #30 tab 03/14/23 Lurasidone [Latuda] 60 mg PO DAILY 30 Days #30 tab 03/14/23 Nicotine Polacrilex [Nicotine Gum] 2 mg BUCCAL Q2H PRN 30 Days #180 03/14/23 pieceofgum Omeprazole 40 mg PO DAILY 30 Days #30 cap 03/14/23 hydrOXYzine pamoate [Vistaril] 50 mg PO Q8HR PRN 14 Days #84 cap 03/14/23 traZODone HCL [Desyrel] 100 mg PO HS 30 Days #30 tab 03/14/23 Allergies Allergy/AdvReac Type Severity Reaction Status Date / Time doxycycline AdvReac Nausea & Verified 06/18/23 15:49 Vomiting Review of Systems ROS Statement: Those systems with pertinent positive or pertinent negative responses have been documented in the HPI. ROS Other: All systems not noted in ROS Statement are negative. Past Medical History Past Medical History: Osteoarthritis (OA), Skin Disorder Additional Past Medical History / Comment(s): HIDRADENITIS SUPPURATIVE (skin condition with painfull lumps on skin )., occasional sob., lesion on neck -pt states occasional drainage. History of Any Multi-Drug Resistant Organisms: MRSA Date of last positivie culture/infection: 2015 MDRO Source:: skin wound back of neck Past Surgical History: Appendectomy Additional Past Surgical History / Comment(s): sweat glands removed,(STATES MULTIPLE SURGERIES).,skin lesion removed (12/28/20) Past Anesthesia/Blood Transfusion Reactions: No Reported Reaction Additional Past Anesthesia/Blood Transfusion Reaction / Comment(s): hx blood transfusion 2009 without reaction Past Psychological History: Anxiety, Depression Smoking Status: Current every day smoker Past Alcohol Use History: None Reported, Abuse, Daily Past Drug Use History: None Reported, Marijuana - Past Family History Mother History Unknown: Yes Additional Family Medical History / Comment(s): maternal aunts cancer Father Family Medical History: Unable to Obtain Additional Family Medical History / Comment(s): paternal grandma, aunts cancer General Exam Limitations: no limitations General appearance: alert, in no apparent distress Head exam: Present: atraumatic, normocephalic Eye exam: Present: normal appearance, EOMI Neck exam: Present: normal inspection Respiratory exam: Present: normal lung sounds bilaterally. Absent: respiratory distress, wheezes, rales, rhonchi, stridor Cardiovascular Exam: Present: regular rate, normal rhythm, normal heart sounds. Absent: systolic murmur, diastolic murmur, rubs, gallop, clicks Extremities exam: Present: pedal edema Neurological exam: Present: alert, oriented X3 Psychiatric exam: Present: normal affect, normal mood Skin exam: Present: warm, dry Course Vital Signs 06/18/23 06/18/23 15:47 21:16 Temperature 97.4 F L Pulse Rate 95 80 Respiratory 20 18 Rate Blood Pressure 109/74 105/71 O2 Sat by Pulse 95 98 Oximetry Medical Decision Making - Medical Decision Making Was pt. sent in by a medical professional or institution (, PA, MANAGER NEWS, urgent care, hospital, or group home...) When possible be specific @ -No Did you speak to anyone other than the patient for history (EMS, parent, family, police, friend...)? What history was obtained from this source @ -No Did you review nursing and triage notes (agree or disagree)? Why? @ -I reviewed and agree with nursing and triage notes Were old charts reviewed (outside hosp., previous admission, EMS record, old EKG, old radiological studies, urgent care reports/EKG's, group home records)? Report findings @ -No old charts were reviewed Differential Diagnosis (chest pain, altered mental status, abdominal pain women, abdominal pain men, vaginal bleeding, weakness, fever, dyspnea, syncope, heada emmanuel, dizziness, GI bleed, back pain, seizure, CVA, palpatations, mental health, musculoskeletal)? @ -Differential includes DVT, CHF, renal disease, hepatic disease, this is not an all-inclusive list EKG interpreted by me (3pts min.). @ -As above X-rays interpreted by me (1pt min.). @ -None done CT interpreted by me (1pt min.). @ -None done U/S interpreted by me (1pt. min.). @ -Ultrasound shows no evidence of DVT in the right leg. No evidence of DVT in the left leg. Mid femoral vein appears to be small in size. Calf edema visualized What testing was considered but not performed or refused? (CT, X-rays, U/S, labs)? Why? @ -None What meds were considered but not given or refused? Why? @ -None Did you discuss the management of the patient with other professionals (professionals i.e. , PA, MANAGER NEWS, lab, RT, psych nurse, social services, foundry operator, teacher, staff nuclear weapons officer, rehabilitation caseworker)? Give summary @ -No Was smoking cessation discussed for >3mins.? @ -No Was critical care preformed (if so, how long)? @ -No Were there social determinants of health that impacted care today? How? (Ho melessness, low income, unemployed, alcoholism, drug addiction, transportation, low edu. Level, literacy, decrease access to med. care, snf, rehab)? @ -No Was there de-escalation of care discussed even if they declined (Discuss DNR or withdrawal of care, Hospice)? DNR status @ -No What co-morbidities impacted this encounter? (DM, HTN, Smoking, COPD, CAD, Cancer, CVA, ARF, Chemo, Hep., AIDS, mental health diagnosis, sleep apnea, morbid obesity)? @ -None Was patient admitted / discharged? Hospital course, mention meds given and route, prescriptions, significant lab abnormalities, going to OR and other pertinent info. @ -37-year-old female present with chief complaint of swelling to the bilateral lower extremities. She does admit to some soreness to the lower extremities. No chest pain or difficulty breathing. History and physical exam are conducted. She is neurovascularly intact. Lab work shows no leukocytosis or anemia. BNP is 70. BUN 5 creatinine 0.58 and GFR greater than 90. Normal LFTs. Ultrasound is negative for DVT. On reassessment patient is resting comfortably showing no acute signs of distress. She is educated on today's findings. I encouraged her to wear compression stockings and follow-up with her PCP for any further studies and treatment. Discharged home. Follow-up with PCP. Report back to ER with any new or worsening symptoms. Discussed return parameters and answered all questions. Patient conveyed verbal understanding and agreed to the plan. I discussed this case in detail with my attending Dr. Wells Undiagnosed new problem with uncertain prognosis? @ -No Drug Therapy requiring intensive monitoring for toxicity (Heparin, Nitro, Insul in, Cardizem)? @ -No Were any procedures done? @ -No Diagnosis/symptom? @ -Lower extremity edema Acute, or Chronic, or Acute on Chronic? @ -Acute Uncomplicated (without systemic symptoms) or Complicated (systemic symptoms)? @ -Uncomplicated Side effects of treatment? @ -No Exacerbation, Progression, or Severe Exacerbation? @ -No Poses a threat to life or bodily function? How? (Chest pain, [place], [place], pneumonia, PE, COPD, DKA, ARF, appy, cholecystitis, CVA, Diverticulitis, Homicidal, Suicidal, threat to staff... and all critical care pts) @ -Unlikely - Lab Data Result diagrams: 06/18/23 16:50 06/18/23 16:50 Lab Results 06/18/23 06/18/23 06/18/23 Range/Units 16:50 16:50 19:26 WBC 7.5 (3.8-10.6) k/uL RBC 4.22 (3.80-5.40) m/uL Hgb 11.4 (11.4-16.0) gm/dL Hct 36.9 (34.0-46.0) % MCV 87.5 (80.0-100.0) fL MCH 26.9 (25.0-35.0) pg MCHC 30.8 L (31.0-37.0) g/dL RDW 14.8 (11.5-15.5) % Plt Count 359 (150-450) k/uL MPV 7.2 Neutrophils % 72 % Lymphocytes % 17 % Monocytes % 5 % Eosinophils % 4 % Basophils % 1 % Neutrophils # 5.5 (1.3-7.7) k/uL Lymphocytes # 1.3 (1.0-4.8) k/uL Monocytes # 0.4 (0-1.0) k/uL Eosinophils # 0.3 (0-0.7) k/uL Basophils # 0.0 (0-0.2) k/uL Sodium 135 L (137-145) mmol/L Potassium 4.3 (3.5-5.1) mmol/L Chloride 108 H (98-107) mmol/L Carbon Dioxide 24 (22-30) mmol/L Anion Gap 3 mmol/L BUN 5 L (7-17) mg/dL Creatinine 0.58 (0.52-1.04) mg/dL Est GFR (CKD-EPI)AfAm >90 (>60 ml/min/1.73 sqM) Est GFR (CKD-EPI)NonAf >90 (>60 ml/min/1.73 sqM) Glucose 92 (74-99) mg/dL Calcium 8.2 L (8.4-10.2) mg/dL Total Bilirubin 0.3 (0.2-1.3) mg/dL AST 24 (14-36) U/L ALT 17 (4-34) U/L Alkaline Phosphatase 94 (38-126) U/L NT-Pro-B Natriuret Pep 70 pg/mL Total Protein 5.8 L (6.3-8.2) g/dL Albumin 3.0 L (3.5-5.0) g/dL Urine Color Yellow Urine Appearance Cloudy H (Clear) Urine pH 6.0 (5.0-8.0) Ur Specific Banner 1.023 (1.001-1.035) Urine Protein Trace H (Negative) Urine Glucose (UA) Negative (Negative) Urine Ketones Negative (Negative) Urine Blood Negative (Negative) Urine Nitrite Negative (Negative) Urine Bilirubin Negative (Negative) Urine Urobilinogen 4.0 (<2.0) mg/dL Ur Leukocyte Esterase Negative (Negative) Urine RBC 8 H (0-5) /hpf Urine WBC 2 (0-5) /hpf Ur Squamous Epith Cells 2 (0-4) /hpf Amorphous Sediment Rare H (None) /hpf Urine Bacteria Rare H (None) /hpf Urine Mucus Many H (None) /hpf Disposition Clinical Impression: Lower extremity edema Disposition: HOME SELF-CARE Condition: Good Instructions (If sedation given, give patient instructions): Leg Edema (ED) Additional Instructions: Follow-up with PCP. Report back to ER with any new or worsening symptoms. Is patient prescribed a controlled substance at d/c from ED?: No Referrals: Darien Garcia MD [Primary Care Provider] - 1-2 days Time of Disposition: 21:22
[2023-06-18] MEDS: KETOROLAC 15 MG/ML 1 ML VIAL IVP STA (17:00)
[2023-06-18 17:05] LABS: Basophils % (A) 1 %; Eosinophils # (A) 0.3 k/uL (0-0.7); Eosinophils % (A) 4 %; HCT 36.9 % (34.0-46.0); HGB 11.4 gm/dL (11.4-16.0); Lymphocytes # (A) 1.3 k/uL (1.0-4.8); Lymphocytes % (A) 17 %; MCH 26.9 pg (25.0-35.0); MCHC 30.8 g/dL (31.0-37.0); MCV 87.5 fL (80.0-100.0); Mean Platelet Volume 7.2; Monocytes # (A) 0.4 k/uL (0-1.0); Monocytes % (A) 5 %; Neutrophils # (A) 5.5 k/uL (1.3-7.7); Neutrophils % (A) 72 %; Platelet Count 359 k/uL (150-450); RBC 4.22 m/uL (3.80-5.40); RDW 14.8 % (11.5-15.5); WBC 7.5 k/uL (3.8-10.6)
[2023-06-18 17:18] LABS: ALT 17 U/L (4-34); AST 24 U/L (14-36); African American GFR (CKD) >90 (>60 ml/min/1.73 sqM); Alkaline Phosphatase 94 U/L (38-126); Anion Gap 3 mmol/L; Blood Urea Nitrogen 5 mg/dL (7-17); Calcium 8.2 mg/dL (8.4-10.2); Carbon Dioxide 24 mmol/L (22-30); Chloride 108 mmol/L (98-107); Glucose 92 mg/dL (74-99); Non-African American GFR(CKD) >90 (>60 ml/min/1.73 sqM); Potassium 4.3 mmol/L (3.5-5.1); Sodium 135 mmol/L (137-145); Total Bilirubin 0.3 mg/dL (0.2-1.3); Total Protein 5.8 g/dL (6.3-8.2)
[2023-06-18 17:26] LABS: NT-Pro-B-Type Natriuretic Pept 70 pg/mL
[2023-06-18 20:03] LABS: Appearance,Urine Cloudy (Clear); Color,Urine Yellow; Glucose,Urine (UA) Negative (Negative); Ketones,Urine Negative (Negative); Protein,Urine Trace (Negative); Specific Gravity,Urine 1.023 (1.001-1.035)
[2023-06-18 20:04] LABS: Amorphous Sediment,Urine Rare /hpf; Bacteria,Urine Rare /hpf; Bilirubin,Urine Negative (Negative); Blood,Urine Negative (Negative); Leukocyte Esterase,Urine Negative (Negative); Mucus,Urine Many /hpf; Nitrite,Urine Negative (Negative); RBC,Urine 8 /hpf (0-5); Squamous Epithelial Cell,Urine 2 /hpf (0-4); WBC,Urine 2 /hpf (0-5)
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
[2023-06-18 21:46] VITALS: BP 105/71; PULSE 80; RESP 18
== END 2023-06-18 21:25 | disposition home or self-care (01) ==
LOC: EC 15:39
DX: R60.0 Localized edema (principal); F17.200 Nicotine dependence, unspecified, uncomplicated; Z88.1 Allergy status to other antibiotic agents
CPT/HCPCS: 36415; 80053; 81001; 83880; 85025; 93970; 99284

== ENCOUNTER 2023-09-21 14:12 | Inpatient (IN) | payer MEDICAID, OTHER ==
[2023-09-21 16:13] LABS: Amphetamine Screen,Urine Not Detected (NotDetected); Barbiturate Screen,Urine Not Detected (NotDetected); Benzodiazepines Screen,Urine Detected (NotDetected); Cocaine Screen,Urine Detected (NotDetected); Methadone Screen, Urine Not Detected (NotDetected); Opiate Screen,Urine Not Detected (NotDetected); Oxycodone Screen, Urine Not Detected (NotDetected); Phencyclidine Screen,Urine Not Detected (NotDetected); Tricyclic Antidepressant,Urine Not Detected (NotDetected); Urn Cannabinoid Scrn Detected (NotDetected)
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
[2023-09-21] MEDS: ACETAMINOPHEN TAB 500 MG TAB PO STA (20:54)
[2023-09-22] MEDS ORDERED: LORazepam 1 MG TAB PO PRN (00:31)
[2023-09-22] MEDS ORDERED: MAGNESIUM HYDROXIDE 2,400 MG/30 ML CUP PO PRN (00:31)
[2023-09-22] MEDS ORDERED: ACETAMINOPHEN TAB 325 MG TAB PO PRN (00:31)
[2023-09-22] MEDS ORDERED: IBUPROFEN 600 MG TAB PO PRN (00:31)
[2023-09-22] MEDS ORDERED: MAG HYDROX/AL HYDROX/SIMETH 355 ML BOTTLE PO PRN (00:31)
[2023-09-22] MEDS ORDERED: LORazepam 2 MG/ML INJ IM PRN (00:47)
[2023-09-22] MEDS: levonorgestreL 1.5 MG TABLET PO ONE (01:49)
[2023-09-22] MEDS: cefTRIAXone 500 MG VIAL IM ONE (02:00)
[2023-09-22 02:28] LABS: Anisocytosis Slight; Basophils % (A) 0 %; Eosinophils # (A) 0.2 k/uL (0-0.7); Eosinophils % (A) 2 %; HCT 41.5 % (34.0-46.0); Hypochromasia Slight; Lymphocytes # (A) 2.2 k/uL (1.0-4.8); Lymphocytes % (A) 21 %; MCH 27.6 pg (25.0-35.0); MCHC 31.3 g/dL (31.0-37.0); Mean Platelet Volume 7.8; Monocytes # (A) 0.3 k/uL (0-1.0); Monocytes % (A) 2 %; Neutrophils # (A) 7.9 k/uL (1.3-7.7); Neutrophils % (A) 74 %; Platelet Count 307 k/uL (150-450); RBC 4.72 m/uL (3.80-5.40); RDW 16.8 % (11.5-15.5); WBC 10.8 k/uL (3.8-10.6)
[2023-09-22 02:40] LABS: ALT 18 U/L (4-34); AST 26 U/L (14-36); African American GFR (CKD) >90 (>60 ml/min/1.73 sqM); Albumin 3.4 g/dL (3.5-5.0); Alkaline Phosphatase 84 U/L (38-126); Anion Gap 10 mmol/L; Blood Urea Nitrogen 9 mg/dL (7-17); Calcium 8.8 mg/dL (8.4-10.2); Carbon Dioxide 20 mmol/L (22-30); Chloride 108 mmol/L (98-107); Glucose 142 mg/dL (74-99); Non-African American GFR(CKD) >90 (>60 ml/min/1.73 sqM); Sodium 138 mmol/L (137-145); Total Bilirubin 0.5 mg/dL (0.2-1.3); Total Protein 6.3 g/dL (6.3-8.2)
[2023-09-22] MEDS: DOXYCYCLINE 100 MG CAP PO SCH (09:16)
[2023-09-22] MEDS: FOLIC ACID 1 MG TAB PO SCH (10:00)
[2023-09-22] MEDS: NICOTINE 14MG/24HR PATCH TRANSDERM SCH (10:00)
[2023-09-22] MEDS: MULTIVITAMINS, THERA 1 EACH TAB PO SCH (10:00)
[2023-09-22] MEDS: EMTRICITABINE/TENOFOVIR 200MG/300MG PO SCH (10:00)
[2023-09-22] MEDS: DOLUTEGRAVIR SODIUM 50 MG TABLET PO SCH (10:00)
[2023-09-22] MEDS: THIAMINE 100 MG TAB PO SCH (10:00)
[2023-09-22 10:46] LABS: Appearance,Urine Cloudy (Clear); Bacteria,Urine Rare /hpf; Bilirubin,Urine Negative (Negative); Blood,Urine Small (Negative); Color,Urine Yellow; Glucose,Urine (UA) Negative (Negative); Ketones,Urine Negative (Negative); Leukocyte Esterase,Urine Large (Negative); Mucus,Urine Many /hpf; Nitrite,Urine Negative (Negative); Protein,Urine 1+ (Negative); RBC,Urine 93 /hpf (0-5); Specific Gravity,Urine 1.019 (1.001-1.035); Squamous Epithelial Cell,Urine 5 /hpf (0-4); WBC,Urine 129 /hpf (0-5)
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
[2023-09-22] MEDS: busPIRone HCl 5 MG TAB PO SCH (14:25)
[2023-09-22] MEDS: DULoxetine HCL 30 MG CAPSULE.DR PO SCH (14:25)
[2023-09-22] MEDS: LORazepam 1 MG TAB PO PRN (17:40)
[2023-09-22] MEDS: LURASIDONE 40 MG TAB PO SCH (18:16)
--- NOTE | 2023-09-22 20:46 | CONS ---
CONSULTATION CHIEF COMPLAINT: Major depression with suicidal thoughts. HISTORY OF PRESENT ILLNESS: This is another admission for this 37-year-old female. She apparently became homeless and was living on the streets and became progressively more depressed and came to the emergency room, talking about suicide. In the emergency room, she had a urine positive for benzodiazepines and cocaine. Potassium is only 3. It looked as though she had a urinary tract infection and she does have frequency, urgency, and dysuria. REVIEW OF SYSTEMS: Otherwise unremarkable. Past medical history, family history, personal and social histories are unremarkable other than being found in her admitting summary. She has had an extensive problem with hidradenitis suppurativa of the axillae. PHYSICAL EXAMINATION: VITAL SIGNS: Normal. HEAD, EARS, EYES, NOSE, MOUTH, AND THROAT: Normal. NECK: Neck veins are not distended. CHEST: Clear. CARDIAC: Normal. ABDOMEN: Soft, nontender. EXTREMITIES: Normal. At the present time, she is slightly lethargic. IMPRESSION: 1. Major depression. 2. Homelessness. 3. Suicidal thoughts. 4. Hidradenitis suppurativa. 5. Dysuria. PLAN: Culture of the urine and started on Bactrim DS twice a day. MMODL / IJN: [id number] /
[2023-09-22] MEDS: traZODone HCL 50 MG TAB PO PRN (21:26)
[2023-09-22] MEDS: SULFAMETHOX-TMP 800-160MG 1 EACH TAB PO SCH (21:26)
[2023-09-23] MEDS: metroNIDAZOLE 500 MG TAB PO SCH (09:14)
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
[2023-09-23] MEDS: LORazepam 1 MG TAB PO PRN (21:35)
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
[2023-09-24] MEDS: diphenhydrAMINE 25 MG CAP PO STA (16:14)
[2023-09-24] MEDS: TRIAMCINOLONE 0.1% CREAM 80 GM TUBE TOPICAL SCH (22:26)
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
[2023-09-25 13:20] LABS: N. gonorrhoeae,PCR Positive (Negative)
[2023-09-25 14:26] LABS: C. trachomatis,PCR Negative (Negative)
[2023-09-25] MEDS: busPIRone HCl 5 MG TAB PO SCH (16:19)
[2023-09-25] MEDS: cefTRIAXone 500 MG VIAL IM ONE (16:19)
[2023-09-25] MEDS: AZITHROMYCIN 500 MG TAB PO ONE (16:23)
[2023-09-25 18:10] LABS: HIV 2 AB Non-Reactive (Non-Reactive); HIV AB P24 Non-Reactive (Non-Reactive); HIV P24 AG Non-Reactive (Non-Reactive)
[2023-09-25] MEDS: DULoxetine HCL 60 MG CAPSULE.DR PO SCH (20:48)
--- NOTE | 2023-09-26 03:15 | PN ---
PROGRESS NOTE CHIEF COMPLAINT: Positive urine test for gonorrhea. HISTORY OF PRESENT ILLNESS: This lady is asymptomatic and will be treated. IMPRESSION: Gonorrhea. PLAN: Zithromax 1 g one time and ceftriaxone 500 mg IM one time. MMODL / IJN: [id number] /
[2023-09-26 08:32] VITALS: RESP 17; TEMP 97
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
[2023-09-26] MEDS: busPIRone HCl 10 MG TAB PO SCH (17:24)
[2023-09-27 08:56] VITALS: BP 100/68; PULSE 86
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
== END 2023-09-27 09:15 | disposition home or self-care (01) | DRG 753 ==
LOC: EC 14:12 → 3MHU 09-22 00:29
PROVIDERS: ADMIT Psychiatry & Neurology Psychiatry; ATTEND Psychiatry & Neurology Psychiatry
DX: F31.30 Bipolar disorder, current episode depressed, mild or moderate severity, unspecified (principal); S40.022A Contusion of left upper arm, initial encounter; R45.851 Suicidal ideations; L73.2 Hidradenitis suppurativa; F43.10 Post-traumatic stress disorder, unspecified; F41.9 Anxiety disorder, unspecified; F17.210 Nicotine dependence, cigarettes, uncomplicated; F14.10 Cocaine abuse, uncomplicated; A54.9 Gonococcal infection, unspecified; F12.10 Cannabis abuse, uncomplicated; R45.850 Homicidal ideations; T76.21XA Adult sexual abuse, suspected, initial encounter; Y09 Assault by unspecified means; F10.10 Alcohol abuse, uncomplicated; R19.7 Diarrhea, unspecified; F51.5 Nightmare disorder; R30.0 Dysuria; Z91.148 Patient's other noncompliance with medication regimen for other reason; Z59.02 Unsheltered homelessness; Z28.310 Unvaccinated for COVID-19; Z11.52 Encounter for screening for COVID-19; Z88.1 Allergy status to other antibiotic agents; M19.90 Unspecified osteoarthritis, unspecified site; Z86.14 Personal history of Methicillin resistant Staphylococcus aureus infection; Z56.0 Unemployment, unspecified; Z63.5 Disruption of family by separation and divorce; Z91.51 Personal history of suicidal behavior; Z71.41 Alcohol abuse counseling and surveillance of alcoholic; Z71.51 Drug abuse counseling and surveillance of drug abuser; Z87.440 Personal history of urinary (tract) infections
CPT/HCPCS: 80053; 80306; 81001; 81025; 82075; 85025; 87086; 87340; 87390; 87491; 87591; 87635; 99285

== ENCOUNTER 2023-10-15 15:45 | Inpatient (IN) | payer MEDICAID, OTHER ==
[2023-10-15 15:51] VITALS: RESP 18
--- NOTE | 2023-10-15 16:47 | ED ---
Psych HPI - General Chief Complaint: Psychiatric Symptoms Stated Complaint: Depression Time Seen by Provider: 10/15/23 16:26 Source: patient, RN notes reviewed, old records reviewed Mode of arrival: ambulatory Limitations: no limitations - History of Present Illness Initial Comments: This is a 37-year-old female to the ER for evaluation patient presents for psychiatric evaluation tonight. Patient does have depression with suicidal thoughts currently patient was sent in by the [facility] and [facility] for mental health evaluation here in the emergency room, denies drugs or alcohol with no sick acute life stressors symptoms worsening for days to weeks MD Complaint: suicidal ideation, feels depressed -: days(s) Associated Psychiatric Symptoms: depression, suicidal ideation History of same: Yes Quality: constant, intermittent Improves With: none Worsens With: none Associated Symptoms: denies other symptoms Treatments Prior to Arrival: placed on mental health hold If Self Harm: admits thoughts of self harm - Related Data Home Medications Medication Instructions Recorded Confirmed No Known Home Medications 11/07/23 11/07/23 Allergies Allergy/AdvReac Type Severity Reaction Status Date / Time doxycycline AdvReac Nausea & Verified 11/07/23 10:59 Vomiting Review of Systems ROS Statement: Those systems with pertinent positive or pertinent negative responses have been documented in the HPI. ROS Other: All systems not noted in ROS Statement are negative. Past Medical History Past Medical History: Osteoarthritis (OA), Skin Disorder Additional Past Medical History / Comment(s): HIDRADENITIS SUPPURATIVE (skin condition with painfull lumps on skin )., occasional sob., lesion on neck -pt states occasional drainage. History of Any Multi-Drug Resistant Organisms: MRSA Date of last positivie culture/infection: 2015 MDRO Source:: skin wound back of neck Past Surgical History: Appendectomy Additional Past Surgical History / Comment(s): sweat glands removed,(STATES MULTIPLE SURGERIES).,skin lesion removed (12/28/20) Past Anesthesia/Blood Transfusion Reactions: No Reported Reaction Additional Past Anesthesia/Blood Transfusion Reaction / Comment(s): hx blood transfusion 2009 without reaction Past Psychological History: Anxiety, Depression Smoking Status: Current every day smoker Past Alcohol Use History: None Reported, Abuse, Daily Past Drug Use History: None Reported, Marijuana - Past Family History Mother History Unknown: Yes Additional Family Medical History / Comment(s): maternal aunts cancer Father Family Medical History: Unable to Obtain Additional Family Medical History / Comment(s): paternal grandma, aunts cancer General Exam Limitations: no limitations General appearance: alert, in no apparent distress Head exam: Present: atraumatic, normocephalic, normal inspection Eye exam: Present: normal appearance, PERRL, EOMI. Absent: scleral icterus, conjunctival injection, periorbital swelling ENT exam: Present: normal exam, mucous membranes moist Neck exam: Present: normal inspection. Absent: tenderness, meningismus, lymphadenopathy Respiratory exam: Present: normal lung sounds bilaterally. Absent: respiratory distress, wheezes, rales, rhonchi, stridor Cardiovascular Exam: Present: regular rate, normal rhythm, normal heart sounds. Absent: systolic murmur, diastolic murmur, rubs, gallop, clicks GI/Abdominal exam: Present: soft, normal bowel sounds. Absent: distended, tenderness, guarding, rebound, rigid Extremities exam: Present: normal inspection, full ROM, normal capillary refill. Absent: tenderness, pedal edema, joint swelling, calf tenderness Back exam: Present: normal inspection Neurological exam: Present: alert, oriented X3, CN II-XII intact Psychiatric exam: Present: normal affect, normal mood Skin exam: Present: warm, dry, intact, normal color. Absent: rash Course Vital Signs 10/15/23 15:47 Temperature 97.8 F Pulse Rate 91 Respiratory 18 Rate Blood Pressure 116/84 O2 Sat by Pulse 96 Oximetry - Reevaluation(s) Reevaluation #1: 10/15/23 20:19 Medical records reviewed Reevaluation #2: 10/15/23 20:19 Medically cleared for psychiatric evaluation Medical Decision Making - Medical Decision Making 37 female seen evaluate psychiatry patient will be admitted for psychiatric evaluation and treatment - Lab Data Lab Results 10/15/23 Range/Units 21:29 SARS-CoV-2 (PCR) Not Detected (Not Detectd) Disposition Clinical Impression: Suicidal ideation, Bipolar disorder current episode depressed, Anxiety disorder, Depression Disposition: TRANSFER TO PSYCH HOSP/UNIT Condition: Fair Is patient prescribed a controlled substance at d/c from ED?: No
[2023-10-15] MEDS ORDERED: LORazepam 1 MG TAB PO PRN (22:42)
[2023-10-15] MEDS ORDERED: IBUPROFEN 600 MG TAB PO PRN (22:42)
[2023-10-15] MEDS ORDERED: HALOPERIDOL LACTATE 5 MG/ML 1 ML VIAL IM PRN (22:42)
[2023-10-15] MEDS ORDERED: ACETAMINOPHEN TAB 325 MG TAB PO PRN (22:42)
[2023-10-15] MEDS ORDERED: haloperidoL 5 MG TAB PO PRN (22:48)
[2023-10-15] MEDS ORDERED: LORazepam 2 MG/ML INJ IM PRN (22:49)
[2023-10-15] MEDS: busPIRone HCl 10 MG TAB PO SCH (23:23)
[2023-10-15] MEDS: traZODone HCL 50 MG TAB PO PRN (23:23)
[2023-10-16] VITALS: BP 128/77; PULSE 77; TEMP 97.7
[2023-10-16] MEDS ORDERED: MAG HYDROX/AL HYDROX/SIMETH 355 ML BOTTLE PO PRN (08:00)
[2023-10-16] MEDS ORDERED: MULTIVITAMINS, THERA 1 EACH TAB ONE (08:06)
[2023-10-16] MEDS ORDERED: FOLIC ACID 1 MG TAB ONE (08:07)
[2023-10-16] MEDS ORDERED: THIAMINE 100 MG TAB ONE (08:07)
[2023-10-16] MEDS ORDERED: DULoxetine HCL 60 MG CAPSULE.DR PO ONE (08:07)
[2023-10-16] MEDS ORDERED: busPIRone HCl 10 MG TAB ONE ×2 (08:07→19:51)
[2023-10-16] MEDS ORDERED: DULoxetine HCL 60 MG CAPSULE.DR PO SCH (09:00)
[2023-10-16] MEDS ORDERED: THIAMINE 100 MG TAB PO SCH (09:00)
[2023-10-16] MEDS ORDERED: MAGNESIUM HYDROXIDE 2,400 MG/30 ML CUP PO PRN (09:00)
[2023-10-16] MEDS ORDERED: FOLIC ACID 1 MG TAB PO SCH (09:00)
[2023-10-16] MEDS ORDERED: MULTIVITAMINS, THERA 1 EACH TAB PO SCH (09:00)
[2023-10-16] MEDS ORDERED: LURASIDONE 40 MG TAB PO SCH (18:00)
[2023-10-16] MEDS ORDERED: LURASIDONE 40 MG TAB ONE (19:50)
[2023-10-17] MEDS ORDERED: busPIRone HCl 10 MG TAB ONE ×4 (08:18→21:10)
[2023-10-17] MEDS ORDERED: DULoxetine HCL 60 MG CAPSULE.DR PO ONE (08:18)
[2023-10-17] MEDS ORDERED: THIAMINE 100 MG TAB ONE (08:18)
[2023-10-17] MEDS ORDERED: MULTIVITAMINS, THERA 1 EACH TAB ONE (08:18)
[2023-10-17] MEDS ORDERED: FOLIC ACID 1 MG TAB ONE (08:18)
[2023-10-17] MEDS ORDERED: LORazepam 1 MG TAB ONE (10:00)
[2023-10-17] MEDS ORDERED: chlordiazePOXIDE 25 MG CAP ONE ×4 (15:57→21:11)
[2023-10-17] MEDS ORDERED: LURASIDONE 40 MG TAB ONE (17:56)
[2023-10-17] MEDS ORDERED: traZODone HCL 100 MG TAB ONE ×2 (21:10)
[2023-10-18] MEDS ORDERED: busPIRone HCl 10 MG TAB ONE ×2 (07:55→20:37)
[2023-10-18] MEDS ORDERED: FOLIC ACID 1 MG TAB ONE (07:55)
[2023-10-18] MEDS ORDERED: MULTIVITAMINS, THERA 1 EACH TAB ONE (07:55)
[2023-10-18] MEDS ORDERED: DULoxetine HCL 60 MG CAPSULE.DR PO ONE (07:56)
[2023-10-18] MEDS ORDERED: THIAMINE 100 MG TAB ONE (08:37)
[2023-10-18] MEDS ORDERED: chlordiazePOXIDE 25 MG CAP ONE ×2 (08:38)
[2023-10-18] MEDS ORDERED: LORazepam 1 MG TAB ONE ×2 (17:12→21:15)
[2023-10-18] MEDS ORDERED: LURASIDONE 40 MG TAB ONE ×2 (19:53)
[2023-10-18] MEDS ORDERED: traZODone HCL 100 MG TAB ONE ×2 (19:54)
[2023-10-19] MEDS ORDERED: busPIRone HCl 10 MG TAB ONE ×3 (07:57→20:05)
[2023-10-19] MEDS ORDERED: DULoxetine HCL 60 MG CAPSULE.DR PO ONE (07:57)
[2023-10-19] MEDS ORDERED: FOLIC ACID 1 MG TAB ONE (07:57)
[2023-10-19] MEDS ORDERED: THIAMINE 100 MG TAB ONE (07:57)
[2023-10-19] MEDS ORDERED: MULTIVITAMINS, THERA 1 EACH TAB ONE (07:57)
[2023-10-19] MEDS ORDERED: LURASIDONE 40 MG TAB ONE ×2 (17:39)
[2023-10-19] MEDS ORDERED: traZODone HCL 100 MG TAB ONE ×2 (20:06)
[2023-10-20] MEDS ORDERED: THIAMINE 100 MG TAB ONE (07:51)
[2023-10-20] MEDS ORDERED: busPIRone HCl 10 MG TAB ONE ×3 (07:51→19:50)
[2023-10-20] MEDS ORDERED: MULTIVITAMINS, THERA 1 EACH TAB ONE (07:51)
[2023-10-20] MEDS ORDERED: FOLIC ACID 1 MG TAB ONE (07:52)
[2023-10-20] MEDS ORDERED: DULoxetine HCL 60 MG CAPSULE.DR PO ONE (07:52)
[2023-10-20] MEDS ORDERED: LORazepam 1 MG TAB ONE (10:51)
[2023-10-20] MEDS ORDERED: haloperidoL 5 MG TAB ONE (16:29)
[2023-10-20] MEDS ORDERED: LURASIDONE 40 MG TAB ONE (17:14)
[2023-10-20] MEDS ORDERED: traZODone HCL 100 MG TAB ONE ×2 (19:49)
[2023-10-21] MEDS ORDERED: MULTIVITAMINS, THERA 1 EACH TAB ONE (07:44)
[2023-10-21] MEDS ORDERED: THIAMINE 100 MG TAB ONE (07:44)
[2023-10-21] MEDS ORDERED: busPIRone HCl 10 MG TAB ONE ×2 (07:45→20:22)
[2023-10-21] MEDS ORDERED: FOLIC ACID 1 MG TAB ONE (07:45)
[2023-10-21] MEDS ORDERED: DULoxetine HCL 60 MG CAPSULE.DR PO ONE (07:45)
[2023-10-21] MEDS ORDERED: PREGABALIN 75 MG CAP ONE ×2 (13:17)
[2023-10-21] MEDS ORDERED: HYDROcodone/APAP 5-325MG 1 EACH TAB ONE ×4 (13:18→20:23)
[2023-10-21] MEDS ORDERED: NICOTINE GUM (POLACRILEX) 2 MG GUM BUCCAL ONE ×2 (13:18)
[2023-10-21] MEDS ORDERED: LURASIDONE 40 MG TAB ONE ×2 (17:54→17:55)
[2023-10-21] MEDS ORDERED: traZODone HCL 100 MG TAB ONE ×2 (20:21)
[2023-10-21] MEDS ORDERED: PREGABALIN 50 MG CAP ONE (20:22)
[2023-10-21] MEDS ORDERED: PREGABALIN 100 MG CAP ONE ×2 (20:22)
[2023-10-22] MEDS ORDERED: LURASIDONE 60 MG TAB ONE (00:01)
[2023-10-22] MEDS ORDERED: HYDROcodone/APAP 5-325MG 1 EACH TAB ONE ×4 (07:47→20:49)
[2023-10-22] MEDS ORDERED: MULTIVITAMINS, THERA 1 EACH TAB ONE (07:47)
[2023-10-22] MEDS ORDERED: FOLIC ACID 1 MG TAB ONE (07:47)
[2023-10-22] MEDS ORDERED: THIAMINE 100 MG TAB ONE (07:47)
[2023-10-22] MEDS ORDERED: PREGABALIN 75 MG CAP ONE ×4 (07:48→20:49)
[2023-10-22] MEDS ORDERED: DULoxetine HCL 60 MG CAPSULE.DR PO ONE (07:48)
[2023-10-22] MEDS ORDERED: NICOTINE GUM (POLACRILEX) 2 MG GUM BUCCAL ONE ×2 (09:28)
[2023-10-22] MEDS ORDERED: LORazepam 1 MG TAB ONE (09:29)
[2023-10-22] MEDS ORDERED: haloperidoL 5 MG TAB ONE (12:47)
[2023-10-22] MEDS ORDERED: busPIRone HCl 10 MG TAB ONE (20:48)
[2023-10-22] MEDS ORDERED: traZODone HCL 100 MG TAB ONE ×2 (20:48)
[2023-10-23] MEDS ORDERED: MULTIVITAMINS, THERA 1 EACH TAB ONE (08:10)
[2023-10-23] MEDS ORDERED: THIAMINE 100 MG TAB ONE (08:10)
[2023-10-23] MEDS ORDERED: DULoxetine HCL 60 MG CAPSULE.DR PO ONE (08:10)
[2023-10-23] MEDS ORDERED: FOLIC ACID 1 MG TAB ONE (08:10)
[2023-10-23] MEDS ORDERED: busPIRone HCl 10 MG TAB ONE (08:13)
[2023-10-23] MEDS ORDERED: HYDROcodone/APAP 5-325MG 1 EACH TAB ONE ×2 (08:13)
[2023-10-23] MEDS ORDERED: PREGABALIN 50 MG CAP ONE (08:14)
[2023-10-23] MEDS ORDERED: NICOTINE GUM (POLACRILEX) 2 MG GUM BUCCAL ONE ×2 (09:11)
[2023-10-23] MEDS ORDERED: ACETAMINOPHEN TAB 325 MG TAB ONE (12:23)
--- NOTE | 2023-11-09 06:27 | HP ---
HISTORY AND PHYSICAL CHIEF COMPLAINT: Major depression. HISTORY OF PRESENT ILLNESS: This is another recent admission to the psych floor for depression for this 37-year-old female. She has had problems in the past with hidradenitis suppurativa of both axillae. REVIEW OF SYSTEMS: She denies any headaches, fever, chills, chest pain, abdominal pain, nausea, vomiting, etc. Past medical history, family history, personal and social histories are all unremarkable and unchanged and can be found in her admitting summary. PHYSICAL EXAMINATION: VITAL SIGNS: Normal. HEAD, EARS, EYES, NOSE, MOUTH, AND THROAT: Normal. CHEST: Clear. CARDIAC: Normal. ABDOMEN: Soft and nontender. EXTREMITIES: Normal. NEUROLOGICAL: She is intact. She was admitted to the psych unit. DIAGNOSES: 1. Major depression. 2. Hidradenitis suppurativa. RECOMMENDATIONS: None at this time. Thank you respectfully, BATOOL / ASHN: [id number] /
== END 2023-10-23 13:34 | disposition home or self-care (01) | DRG 753 ==
LOC: EC 15:45 → UNDOADMIN 22:36 → 3MHU 22:36 → UNDODISIN 10-23 13:34
PROVIDERS: ADMIT Psychiatry & Neurology Psychiatry; ATTEND Psychiatry & Neurology Psychiatry
DX: F31.30 Bipolar disorder, current episode depressed, mild or moderate severity, unspecified (principal); R45.851 Suicidal ideations; F41.9 Anxiety disorder, unspecified; F17.210 Nicotine dependence, cigarettes, uncomplicated; L73.2 Hidradenitis suppurativa; F43.10 Post-traumatic stress disorder, unspecified; F10.90 Alcohol use, unspecified, uncomplicated; Z59.01 Sheltered homelessness; Z86.14 Personal history of Methicillin resistant Staphylococcus aureus infection; Z88.1 Allergy status to other antibiotic agents
CPT/HCPCS: 82075; 87635; 99285

== ENCOUNTER 2023-11-06 19:29 | Inpatient (IN) | payer MEDICAID, OTHER ==
[2023-11-07] MEDS: metroNIDAZOLE 500 MG TAB PO STA (01:21)
[2023-11-07] MEDS: cefTRIAXone 250 MG VIAL IM STA (01:21)
[2023-11-07] MEDS: AZITHROMYCIN 500 MG TAB PO STA (01:21)
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
[2023-11-07] MEDS ORDERED: MAGNESIUM HYDROXIDE 2,400 MG/30 ML CUP PO PRN (15:16)
[2023-11-07] MEDS ORDERED: ACETAMINOPHEN TAB 325 MG TAB PO PRN (15:16)
[2023-11-07] MEDS ORDERED: MAG HYDROX/AL HYDROX/SIMETH 355 ML BOTTLE PO PRN (15:16)
[2023-11-07] MEDS ORDERED: LORazepam 2 MG/ML INJ IM PRN (15:18)
[2023-11-07] MEDS ORDERED: HALOPERIDOL LACTATE 5 MG/ML 1 ML VIAL IM PRN (15:19)
[2023-11-07] MEDS: IBUPROFEN 600 MG TAB PO PRN (17:53)
[2023-11-07] MEDS: chlordiazePOXIDE 25 MG CAP PO SCH (17:53)
[2023-11-07] MEDS: LORazepam 1 MG TAB PO PRN (17:53)
[2023-11-07] MEDS: busPIRone HCl 10 MG TAB PO SCH (17:53)
[2023-11-07] MEDS ORDERED: LORazepam 1 MG TAB PO PRN (19:21)
[2023-11-07] MEDS ORDERED: ONDANSETRON ODT 4 MG TAB PO PRN (19:21)
[2023-11-07] MEDS: traZODone HCL 100 MG TAB PO SCH (21:46)
[2023-11-07] MEDS: DULoxetine HCL 60 MG CAPSULE.DR PO SCH (21:46)
[2023-11-08] MEDS: LURASIDONE 60 MG TAB PO SCH (09:23)
[2023-11-08] MEDS: NICOTINE 14MG/24HR PATCH TRANSDERM SCH (10:08)
[2023-11-08 11:18] LABS: Anisocytosis Slight; Basophils % (A) 0 %; Eosinophils # (A) 0.1 k/uL (0-0.7); Eosinophils % (A) 1 %; HCT 40.2 % (34.0-46.0); HGB 12.9 gm/dL (11.4-16.0); Lymphocytes # (A) 1.5 k/uL (1.0-4.8); Lymphocytes % (A) 25 %; MCH 27.6 pg (25.0-35.0); MCV 86.2 fL (80.0-100.0); Mean Platelet Volume 7.8; Monocytes # (A) 0.1 k/uL (0-1.0); Monocytes % (A) 2 %; Neutrophils # (A) 4.3 k/uL (1.3-7.7); Neutrophils % (A) 70 %; Platelet Count 299 k/uL (150-450); RBC 4.67 m/uL (3.80-5.40); RDW 16.6 % (11.5-15.5); WBC 6.1 k/uL (3.8-10.6)
[2023-11-08 11:36] LABS: ALT 20 U/L (4-34); AST 26 U/L (14-36); African American GFR (CKD) >90 (>60 ml/min/1.73 sqM); Albumin 3.9 g/dL (3.5-5.0); Alkaline Phosphatase 99 U/L (38-126); Anion Gap 6 mmol/L; Bilirubin, Delta 0.3 mg/dL (0.0-0.2); Bilirubin,Unconjugated 1.2 mg/dL (0.0-1.1); Blood Urea Nitrogen 10 mg/dL (7-17); Calcium 9.4 mg/dL (8.4-10.2); Carbon Dioxide 25 mmol/L (22-30); Chloride 107 mmol/L (98-107); Glucose 95 mg/dL (74-99); Non-African American GFR(CKD) >90 (>60 ml/min/1.73 sqM); Potassium 4.2 mmol/L (3.5-5.1); Sodium 138 mmol/L (137-145); Total Bilirubin 1.5 mg/dL (0.2-1.3); Total Protein 6.9 g/dL (6.3-8.2)
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
[2023-11-08 16:00] LABS: Chol/HDL Ratio 3.38 Ratio; LDL Cholesterol,Calculated 123.8 mg/dL (0.0-131.0)
[2023-11-08] MEDS: LURASIDONE 40 MG TAB PO SCH (17:40)
[2023-11-08] MEDS: NICOTINE GUM (POLACRILEX) 2 MG GUM BUCCAL PRN (21:12)
[2023-11-09] MEDS: NALTREXONE HCL 50 MG TAB PO SCH (09:49)
--- NOTE | 2023-11-09 09:57 | P.PN ---
Progress Note - Text Progress Note Date: 11/09/23 Interval History: Patient was seen in her room and was directable and agreeable to speak with wr iter in the office. The patient states that she can not shake her depression, that she feels hopeless, and that she does not want to do anything but sleep. She is not going to groups, and she states her appetite is poor. She endorses good sleep. Patient states that she is still having mild withdraw symptoms. At this time patient denies any suicidal or homicidal ideations, intent or plan. Patient denies any auditory, visual hallucinations and denies any paranoia or delusions. Patient denies any side effects from the medications and has been compliant with meds. MENTAL STATUS EXAM: General Appearance: Patient appears to be stated age is alert, directable, and attempts to cooperate. Patient appears to have poor hygiene and grooming. Shaved head around the bottom, top pulled into ponytail. Behavior: Patient is seated without any agitated behavior. minimizing. manipulative. Speech: Patient's speech is fluent and nonpressured. Mood/Affect: Patient reports their mood is depressed, affect is congruent and constricted. Suicidality/Homicidality: Patient denies having any homicidal ideation intent or plan. denies suicidal ideations, no intent or plan Perceptions: Patient denies any visual hallucinations and denies any auditory hallucinations Though content/process: There is no evidence of any delusional thought content and thought process minimizing her alcohol and drug abuse Memory and concentration: AOX3, grossly intact for the purposes of this session. Judgment and insight: chronically poor, manipulative. IMPRESSIONS: Bipolar depression Cocaine use disorder PTSD Alcohol use disorder Cannabis use disorder nicotine dependence PLAN: -Patient is admitted under involuntary status to MHU for stabilization of psychiatric symptoms and safety. Patient has not signed adult voluntary form or medication consent and is placed in patient's chart.Will file a second cert with court -Medications : increase buspar 15mg bid for anxiety, increase cymbalta 60mg bid for anxiety/depression, increase Latuda 60mg daily at dinner time for mood stabilization. Trazodone 50mg qhs, prn for sleep, decrease Librium 20mg TID, for alcohol withdraw, with plan to taper down, naltrexone 50mg daily for alcohol cravings. -Ativan and Haldol PRN for agitation/aggression -thiamine, MVM for etoh use -CIWA protocol with Ativan PRN for ETOH withdrawal -NRT - nicotine patch -SW on board for discharge planning. Encourage patient to participate in groups to work on coping skills. Will await deferral/court hearing.
[2023-11-09] MEDS: busPIRone HCl 5 MG TAB PO SCH (17:01)
[2023-11-09] MEDS: LURASIDONE 60 MG TAB PO SCH (18:31)
[2023-11-10] MEDS: haloperidoL 5 MG TAB PO PRN (10:34)
--- NOTE | 2023-11-10 11:29 | P.PN ---
Progress Note - Text Progress Note Date: 11/10/23 Interval History: Patient was seen in her room and was directable and agreeable to speak with wr iter in the office. The patient states that she is feeling quite anxious today. She was nervous about her deferral today. She did not know the process, so she was nervous. She did defer with her taxi cab driver. She endorses good sleep. The patient denies withdraw symptoms today, and endorses a good appetite. Field Technical Assistant spoke with patient about rehab, patient stated she will go to rehab. At this time patient denies any suicidal or homicidal ideations, intent or plan. Patient denies any auditory, visual hallucinations and denies any paranoia or delusions. Patient denies any side effects from the medications and has been compliant with meds. MENTAL STATUS EXAM: General Appearance: Patient appears to be stated age is alert, directable, and attempts to cooperate. Patient appears to have poor hygiene and grooming. Shaved head around the bottom, top pulled into ponytail. Behavior: Patient is seated without any agitated behavior. Speech: Patient's speech is fluent and nonpressured. Mood/Affect: Patient reports their mood is anxious, affect is congruent and constricted. mildly improving Suicidality/Homicidality: Patient denies having any homicidal ideation intent or plan. denies suicidal ideations, no intent or plan Perceptions: Patient denies any visual hallucinations and denies any auditory hallucinations Though content/process: There is no evidence of any delusional thought content and thought process minimizing her alcohol and drug abuse, improving mildly Memory and concentration: AOX3, grossly intact for the purposes of this session. Judgment and insight: chronically poor, mildly improving IMPRESSIONS: Bipolar depression Cocaine use disorder PTSD Alcohol use disorder Cannabis use disorder nicotine dependence PLAN: -Patient is admitted under involuntary status to MHU for stabilization of psychiatric symptoms and safety. Patient has not signed adult voluntary form or medication consent and is placed in patient's chart Patient deferred. -Medications : increase buspar 20mg tid for anxiety, cymbalta 60mg bid for anxiety/depression, increase Latuda 80mg daily at dinner time for mood stabilization. Trazodone 50mg qhs, prn for sleep, decrease Librium 10mg QID, for alcohol withdraw, with plan to taper down over the weekend, naltrexone 50mg daily for alcohol cravings. -Ativan and Haldol PRN for agitation/aggression -thiamine, MVM for etoh use -CIWA protocol with Ativan PRN for ETOH withdrawal -NRT - nicotine patch -SW on board for discharge planning. Encourage patient to participate in groups to work on coping skills. Patient deferred 11/10/23. Patient will call access for rehab.
[2023-11-10] MEDS: busPIRone HCl 10 MG TAB PO SCH (15:32)
[2023-11-10] MEDS: SYMBICORT 160-4.5 MCG INHALER INHALATION SCH (15:34)
[2023-11-10] MEDS: SYMBICORT 160-4.5 MCG INHALER (MHU) INHALATION SCH (15:38)
[2023-11-10] MEDS: LURASIDONE 60 MG TAB PO SCH (17:36)
[2023-11-10] MEDS: PREGABALIN 75 MG CAP PO SCH (17:36)
[2023-11-11] MEDS: LURASIDONE 80 MG TAB PO SCH (17:19)
--- NOTE | 2023-11-11 17:31 | P.PN ---
Progress Note - Text Progress Note Date: 11/11/23 Interval history: Patient was seen in the lounge and was directable and agreeable to speak with physician underwriter in the office. Report feeling better as compared to admission and note that there "mind was racing" due to all the stressors and concerns phasing them outside the hospital. They do not find the Buspar to be helpful for anxiety considering the increased dose and feel that Ativan has been helpful for them in the past. They shared concerns about impending divorce and did reiterate desires to enter a rehab facility after discharge from the hospital. Patient is eager to decrease dose of Librium and transition off of that medication; we discussed making a decrease today. At this time patient denies any suicidal or homicidal ideations, intent, or plan. Denies any auditory or visual hallucinations. Patient denies any side effects from the medications and has been compliant with meds. Patient did inquire about resuming home hydrocodone. Mental status exam: General Appearance: Patient appears to be stated age is alert, directable, and cooperative. Behavior: No agitated behavior. Patient is calm and directable Speech: Patient's speech is fluent and nonpressured. Mood/Affect: Mood is euthymic, affect is congruent and constricted. Suicidality/Homicidality: Patient denies having any suicidal or homicidal ideation intent or plan. Perceptions: Patient denies any auditory or visual hallucinations. Though content/process: There is no evidence of any delusional thought content and thought process is linear and goal-directed. Memory and concentration: AOX3, grossly intact for the purposes of this session Judgment and insight: fair Assessment/Plan: Continue with current diagnoses. Patient continues to meet criteria for inpatient psychiatric admission for symptom stabilization and safety. Medication regimen: - Continue latuda 80 mg daily at dinner for mood stabilization - Continue cymbalta 60 mg BID for depression - Continue Naltrexone 50 mg daily for alcohol cravings (this medication precludes resumption of hydrocodone) - Decrease Librium to 10 mg BID for alcohol cravings Monitor for medication compliance and for any psychotropic medication side effects. Will continue to monitor ongoing response to treatment. Encouraged participation in milieu.
[2023-11-12] MEDS: ACAMPROSATE CALCIUM 333 MG TABLET.DR PO SCH (17:14)
--- NOTE | 2023-11-12 18:35 | P.PN ---
Progress Note - Text Progress Note Date: 11/12/23 Interval history: Patient was seen in the hallway and was amenable to a visit in the office. S cribes her mood as "upset". When asked more about this she is frustrated that she is not receiving her home dose of hydrocodone as had been discussed with her by her primary care doctor at the time of their visit. We processed his frustration and discussed the things that are causing her pain including her knee and skin lesions related to hidradenitis suppurativa. Additionally we discussed that [place] is contraindicated when used with naltrexone which she is presently taking to help with alcohol craving and to support her abstinence quest. She explained that she would rather not take naltrexone if it meant not being able to take [place] due to her chronic pain issues. We discussed a plan to transition from naltrexone to acamprosate instead. She denies experiencing any alcohol withdrawal symptoms at this time. At this time patient denies any suicidal or homicidal ideations, intent, or plan. Denies any auditory or visual hallucinations. Patient denies any side effects from the medications and has been compliant with meds. Mental status exam: General Appearance: Patient appears to be stated age is alert, directable, and cooperative. Behavior: No agitated behavior. Patient is calm and directable Speech: Patient's speech is fluent and nonpressured. Mood/Affect: Mood is "upset", affect is notably constricted. Slight smile during today's interaction as mood improved. Suicidality/Homicidality: Patient denies having any suicidal or homicidal ideation intent or plan. Perceptions: Patient denies any auditory or visual hallucinations. Though content/process: There is no evidence of any delusional thought content and thought process is linear and goal-directed. Memory and concentration: AOX3, grossly intact for the purposes of this session Judgment and insight: fair Assessment/Plan: Continue with current diagnoses. Patient continues to meet criteria for inpatient psychiatric admission for symptom stabilization and safety. Medication regimen: - Continue latuda 80 mg daily at dinner for mood stabilization - Continue cymbalta 60 mg BID for depression - Discontinue Naltrexone; will transition to acamprosate for alcohol craving/binge drinking - Continue Librium 10 mg BID for alcohol cravings Monitor for medication compliance and for any psychotropic medication side effects. Will continue to monitor ongoing response to treatment. She is eager for discharge and would like to transition to a substance treatment program. Encouraged participation in milieu.
--- NOTE | 2023-11-13 11:43 | P.PN ---
Progress Note - Text Progress Note Date: 11/13/23 Interval history: Patient was seen in the hallway and was agreeable to speak with food writer in the office. She states that she is doing ok. She states that her divorce will be finalized sometime this week or so. She states that she has reached out to her family that live out of state, and they want her to come home. She states that she thinks that is the best thing for her, is to go home to her family. She is refusing rehab at this time. Continues to rationalize, focused on discharge and demanding. At this time patient denies any suicidal or homicidal ideations, intent, or plan. Denies any auditory or visual hallucinations. Patient denies any side effects from the medications and has been compliant with meds. Mental status exam: General Appearance: Patient appears to be stated age is alert, directable, and cooperative. Behavior: No agitated behavior. Patient is calm and directable Speech: Patient's speech is fluent and nonpressured. Mood/Affect: Mood is "ok", affect is notably constricted. Suicidality/Homicidality: Patient denies having any suicidal or homicidal ideation intent or plan. Perceptions: Patient denies any auditory or visual hallucinations. Though content/process: There is no evidence of any delusional thought content and thought process is linear and goal-directed. Focused on discharge. Memory and concentration: AOX3, grossly intact for the purposes of this session Judgment and insight: Poor, mildly improving IMPRESSIONS: Bipolar depression Cocaine use disorder PTSD Alcohol use disorder Cannabis use disorder nicotine dependence PLAN: -Patient is admitted under involuntary status to [facility] for stabilization of psychiatric symptoms and safety. Patient has not signed adult voluntary form or medication consent and is placed in patient's chart Patient deferred. -Medications : buspar 20mg tid for anxiety, cymbalta 60mg bid for anxiety/depression, Latuda 80mg daily at dinner time for mood stabilization. Trazodone 50mg qhs, prn for sleep, acamprosate 666mg po TID for alcohol craving/binge drinking -Ativan and Haldol PRN for agitation/aggression -thiamine, MVM for etoh use -NRT - nicotine patch -SW on board for discharge planning. Encourage patient to participate in groups to work on coping skills. Patient deferred 11/10/23. Patient currently refusing rehab. possible d/c tomorrow vs monday if patient has a plan to head back to her family out of state
[2023-11-13] MEDS: LORazepam 1 MG TAB PO PRN (12:21)
[2023-11-14 07:14] VITALS: BP 93/58; PULSE 63; RESP 14; TEMP 97.7
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
== END 2023-11-14 12:26 | disposition home or self-care (01) | DRG 753 ==
LOC: EC 19:29 → 3MHU 11-07 15:01
PROVIDERS: ADMIT Psychiatry & Neurology Psychiatry; ATTEND Psychiatry & Neurology Psychiatry
DX: F31.30 Bipolar disorder, current episode depressed, mild or moderate severity, unspecified (principal); R45.850 Homicidal ideations; S61.411A Laceration without foreign body of right hand, initial encounter; F10.939 Alcohol use, unspecified with withdrawal, unspecified; F12.90 Cannabis use, unspecified, uncomplicated; F14.90 Cocaine use, unspecified, uncomplicated; F17.210 Nicotine dependence, cigarettes, uncomplicated; F41.9 Anxiety disorder, unspecified; F43.10 Post-traumatic stress disorder, unspecified; G89.29 Other chronic pain; L73.2 Hidradenitis suppurativa; Y28.9XXA Contact with unspecified sharp object, undetermined intent, initial encounter; Z79.899 Other long term (current) drug therapy; Z59.00 Homelessness unspecified; Z56.0 Unemployment, unspecified; Z88.1 Allergy status to other antibiotic agents
CPT/HCPCS: 80053; 80061; 82075; 82248; 83036; 84443; 85025; 87635; 87636; 96372; 99285